=== PATIENT | female | born 1945 | race Caucasian/White ===

== ENCOUNTER → 2020-07-26 10:22 | Outpatient (CLI) | payer MEDICARE, OTHER, SELFPAY ==
--- NOTE | ~2020-07-26 | MM_ITS ---
EXAMINATION: MM screening [facility] w kyacee HISTORY: Screening mammogram TECHNIQUE: Craniocaudal and mediolateral oblique 3-D tomosynthesis images were obtained and synthetic 2-D images were generated. CAD analysis was submitted and interpreted. COMPARISON: 10/28/2018, 01/08/2017, 11/09/2014 bilateral digital screening mammogram examinations BREAST PARENCHYMAL COMPOSITION: There are scattered areas of fibroglandular density. FINDINGS: Stable mild fibroglandular asymmetry. There is no evidence of suspicious mass, calcificatio n, or architectural distortion to suggest malignancy in either breast. There has been no suspicious i nterval change. IMPRESSION: 1. No mammographic evidence of malignancy. 2. Recommend routine screening mammography in one year. BI-RADS Category 2: Benign finding(s). Reviewed, dictated and finalized at location A.
== END ==
PROVIDERS: PCP Physician Assistant; Visit Provider Physician Assistant
DX: Z12.31 Encounter for screening mammogram for malignant neoplasm of breast (principal)
CPT/HCPCS: 77063; 77067

== ENCOUNTER → 2021-02-10 07:37 | Outpatient (CLI) | payer MEDICARE, OTHER, SELFPAY ==
--- NOTE | ~2021-02-10 | US_ITS ---
EXAMINATION: US abdomen complete DATE: 02/10/2021 08:24 INDICATION: Nausea and vomiting TECHNIQUE: Multiple grayscale and Doppler ultrasound images of the abdomen were obtained. COMPARISON: None available FINDINGS: The head and body of the pancreas are normal. The pancreatic tail is obscured by bowel gas. The liver demonstrates increased echogenicity, heterogenous echotexture, and decreased through trans mission. No surface nodularity. Normal hepatopetal flow in the main portal vein. The gallbladder is s urgically absent. The common bile duct measures 8 mm, consistent with post cholecystectomy state. The visualized portions of the aorta and inferior vena cava are normal. The right kidney measures 12.1 x 4.0 x 6.2 cm. The left kidney measures 11.3 x 4.3 x 7.0 cm. The kidn eys demonstrate normal parenchymal echogenicity. There is no hydronephrosis. The spleen is normal in appearance and measures 14.1 cm. IMPRESSION: 1. No sonographic correlate for the patient's symptoms. Reviewed, dictated and finalized at location A.
== END ==
PROVIDERS: PCP Physician Assistant; Visit Provider Physician Assistant
DX: R11.10 Vomiting, unspecified (principal); R53.83 Other fatigue; R10.11 Right upper quadrant pain
CPT/HCPCS: 76700

== ENCOUNTER → 2021-08-01 10:26 | Outpatient (CLI) | payer MEDICARE, OTHER, SELFPAY ==
--- NOTE | ~2021-08-01 | MM_ITS ---
EXAMINATION: MM screening [facility] BI w kaycee HISTORY: Screening TECHNIQUE: Craniocaudal and mediolateral oblique 3-D tomosynthesis images were obtained and synthetic 2-D images were generated. CAD analysis was submitted and interpreted. COMPARISON: Comparison to multiple prior studies sequentially, with oldest reviewed study dated 04/28. BREAST PARENCHYMAL COMPOSITION: Breast composed of scattered areas of fibroglandular density. FINDINGS: There is no evidence of suspicious mass, calcification, or architectural distortion to sugg est malignancy in either breast. There has been no suspicious interval change. IMPRESSION: 1. No mammographic evidence of malignancy. 2. Recommend routine screening mammography in one year. BI-RADS Category 1: Negative Reviewed, dictated and finalized at location A.
== END ==
PROVIDERS: PCP Physician Assistant; Visit Provider Physician Assistant
DX: Z12.31 Encounter for screening mammogram for malignant neoplasm of breast (principal)
CPT/HCPCS: 77063; 77067

== ENCOUNTER → 2022-08-07 10:10 | Outpatient (CLI) | payer MEDICARE, OTHER, SELFPAY ==
--- NOTE | ~2022-08-07 | MM_ITS ---
EXAMINATION: MM screening [facility] BI w kaycee HISTORY: Screening mammogram TECHNIQUE: Craniocaudal and mediolateral oblique 3-D tomosynthesis images were obtained and synthetic 2-D images were generated. CAD analysis was submitted and interpreted. COMPARISON: 08/01/2021, 07/26/2020, 10/28/2018 BREAST PARENCHYMAL COMPOSITION: There are scattered areas of fibroglandular density. FINDINGS: No suspicious mass, calcification, or architectural distortion are identified in either minnie ast to suggest malignancy. There has been no suspicious interval change. IMPRESSION: 1. No mammographic evidence of malignancy. 2. Recommend routine screening mammography in one year. BI-RADS Category 1: Negative Reviewed, dictated and finalized at location A.
--- NOTE | ~2022-08-07 | DEXA_ITS ---
Bone Density Report Name: [facility] Age: 77 Sex: Female Ethnicity: White Date of : 1945 Indication: postmenopausal; screening for osteoporosis; parental hip fracture; height loss; hysterectomy; Referring Provider: QUENTIN, ARABELLA Study: Bone densitometry was performed. Exam Date: August 07, 2022 Accession number: [id number] Bone Density: Region BMD T-score Z-score Classification AP Spine (L3, L4) 1.116 0.1 2.7 Normal Femoral Neck (Left) 0.796 -0.5 1.6 Normal Total Hip (Left) 0.946 0.0 1.8 Normal Femoral Neck (Right) 0.752 -0.9 1.2 Normal Total Hip (Right) 0.930 -0.1 1.7 Normal Total Hip Mean 0.938 -0.1 1.8 Normal World Health Organization criteria for BMD impression classify patients as: Normal (T-score at or above -1.0), Osteopenia (T-score between -1.0 and -2.5), or Osteoporosis (T-score at or below -2.5). 10-year Fracture Risk: FRAX not reported because: All T-scores for Spine Total, Hip Total, Femoral Neck at or above -1.0 Previous Exams: Region Exam Age BMD T-score BMD Change BMD Change Date g/cm2 vs Baseline vs Previous AP Spine(L3, L4) 08/07/2022 77 1.116 0.1 0.068* 0.005 10/28/2018 73 1.111 0.1 0.063* 0.053* 04/25/2012 67 1.058 -0.4 0.010 -0.048* 02/07/2010 64 1.106 0.0 0.058* 0.058* 09/23/2007 62 1.048 -0.5 Total Hip(Left) 08/07/2022 77 0.946 0.0 -0.123* -0.012 10/28/2018 73 0.958 0.1 -0.111* 0.007 04/25/2012 67 0.951 0.1 -0.118* -0.155* 02/07/2010 64 1.105 1.3 0.036* 0.036* 09/23/2007 62 1.069 1.0 Total Hip(Right) 08/07/2022 77 0.930 -0.1 -0.176* -0.008 10/28/2018 73 0.938 0.0 -0.169* 0.001 04/25/2012 67 0.937 0.0 -0.170* -0.111* 02/07/2010 64 1.048 0.9 -0.059* -0.059* 09/23/2007 62 1.107 1.4 *Denotes significance at 95% confidence level, LSC for AP Spine = 0.022 g/cm2, LSC for Total Hip = 0.027 g/cm2 Clinical Information Provided by Patient: Parent has had a hip fracture Has used the following medications: Vitamin D Has the following medical conditions: Hysterectomy Patient maximum height was 65 Menopause Age: 32 Does not regularly consume dairy products Drinks caffeinated beverages Onset of menses at age 14 Number of children 3
== END ==
PROVIDERS: PCP Physician Assistant; Visit Provider Physician Assistant
DX: Z12.31 Encounter for screening mammogram for malignant neoplasm of breast (principal); Z78.0 Asymptomatic menopausal state
CPT/HCPCS: 77063; 77067; 77080

== ENCOUNTER → 2023-10-18 08:42 | Outpatient (CLI) | payer MEDICARE, SELFPAY ==
--- NOTE | ~2023-10-18 | MM_ITS ---
EXAMINATION: MM screening [facility] w kaycee HISTORY: Screening mammogram TECHNIQUE: Craniocaudal and mediolateral oblique 3-D tomosynthesis images were obtained and synthetic 2-D images were generated. CAD analysis was submitted and interpreted. COMPARISON: 08/07/2022, 08/01/2021, 07/26/2020 bilateral screening mammogram examinations BREAST PARENCHYMAL COMPOSITION: There are scattered areas of fibroglandular density. FINDINGS: There is no evidence of suspicious mass, calcification, or architectural distortion to sugg est malignancy in either breast. There has been no suspicious interval change. IMPRESSION: 1. No mammographic evidence of malignancy. 2. Recommend routine screening mammography in one year. BI-RADS Category 1: Negative Reviewed, dictated and finalized at location A. CAL COLLECTIONS
== END ==
PROVIDERS: PCP Physician Assistant; Visit Provider Physician Assistant
DX: Z12.31 Encounter for screening mammogram for malignant neoplasm of breast (principal)
CPT/HCPCS: 77063; 77067

== ENCOUNTER 2024-10-20 10:28 | Outpatient (CLI) | payer MEDICARE, SELFPAY ==
--- NOTE | ~2024-10-20 | MM_ITS ---
EXAMINATION: MM screening [facility] w kaycee HISTORY: Screening TECHNIQUE: Craniocaudal and mediolateral oblique 3-D tomosynthesis images were obtained and synthetic 2-D images were generated. CAD analysis was submitted and interpreted. COMPARISON: Comparison to multiple prior studies sequentially, with oldest reviewed study dated 06/2017. BREAST PARENCHYMAL COMPOSITION: Not dense: There are scattered areas of fibroglandular density. FINDINGS: There is no evidence of suspicious mass, calcification, or architectural distortion to sugg est malignancy in either breast. There has been no suspicious interval change. IMPRESSION: 1. No mammographic evidence of malignancy. 2. Recommend routine screening mammography in one year. BI-RADS Category 1: Negative Reviewed, dictated and finalized at location B. SHAMPOOER
== END 2024-10-20 10:29 | disposition home or self-care (01) ==
LOC: MICIMG 10:30
PROVIDERS: PCP Physician Assistant; Visit Provider Physician Assistant
DX: Z12.31 Encounter for screening mammogram for malignant neoplasm of breast (principal)
CPT/HCPCS: 77063; 77067

== ENCOUNTER 2024-11-16 01:23 | Day surgery (SDC) | payer MEDICARE, SELFPAY ==
[2024-10-28 08:47] VITALS: BMI 38.5
[2024-11-16 06:55] VITALS: BP 221/97; PULSE 92; RESP 20; TEMP 36.2; O2SAT 99; BMI 38.7
[2024-11-16 07:05] VITALS: BP 185/86
[2024-11-16] MEDS: LACTATED RINGERS 1,000 ML 150 ML IV CONT (07:07)
--- NOTE | 2024-11-16 07:15 | WPDANESEPPF ---
Anes - Initial Pre Proc Eval Procedure: Operation Date: 11/16/24 08:00 Proposed Procedures p Colonoscopy - Chung Delgado MD Date/Time: 11/16/24 07:15 Surgeon: Chung Delgado MD Pre Op Diagnosis: hx of colon polyps Patient Data Age: 79 Gender: F Height: 1.65 m Weight: 105.5 kg Last Vital Signs Temp 36.2 C L 11/16/24 06:55 Pulse 92 11/16/24 06:55 Resp 20 11/16/24 06:55 BP 221/97 H 11/16/24 06:55 Pulse Ox 99 11/16/24 06:55 O2 Del Method Room Air 11/16/24 06:55 Allergies Allergy/AdvReac Type Severity Reaction Status Date / Time No Known Allergies Allergy Verified 11/16/24 06:53 Home Medications ?Medication ?Instructions ?Recorded ?Confirmed ?Type amlodipine 10 mg tablet 10 mg PO DAILY 10/28/24 11/16/24 History cholecalciferol (vitamin D3) 50 2,000 unit PO DAILY 10/28/24 11/16/24 History mcg (2,000 unit) capsule dapagliflozin propanediol 10 mg 10 mg PO DAILY 10/28/24 11/16/24 History tablet (Farxiga) lisinopril 2.5 mg tablet 2.5 mg PO DAILY 10/28/24 11/16/24 History mecobalamin (vitamin B12) 1,000 1,000 mcg PO DAILY 10/28/24 11/16/24 History mcg chewable tablet [id number]-epa-fish oil 120 1 cap PO DAILY 10/28/24 11/16/24 History mg-180 mg-60 mg-1,200 mg capsule, DR (Fish Oil) semaglutide 14 mg tablet (Rybelsus) 14 mg PO DAILY 10/28/24 11/16/24 History Patient hx anesthesia problems: none Family hx anesthesia problems: none Results Review: All pre-operative results and documents have been reviewed as part of the pre-operative evaluation. [facility] Past Medical History Medical History (Updated 11/16/24 @ 07:17 by Bob Morel MD) Diabetes Obesity Hyperlipidemia HTN (hypertension) Surgical History Surgical History (Updated 11/16/24 @ 07:17 by Bob Morel MD) History of cholecystectomy History of section Social History Social History Smoking status: Never smoker Alcohol intake: never Substance use: never Substance use type: does not use Living arrangements: alone Spiritual care concerns: No Anes - Eval Final PreProcedure Day of Procedure 11/16/24 07:15 Patient weight: obese Heart: regular rate and rhythm Lungs: clear to auscultation Airway: Mallampati scale class II Neurological: alert and oriented Last oral intake: >/= 8 hours ASA classification: III Emergent: no Anesthetic plan: proceed Anesthesia type and monitoring: general GIVS and standard monitoring Results Review: All pre-operative results and documents have been reviewed as part of the pre-operative evaluation. Informed Consent: The patient's anesthetic plan and its attendant risks and benefits were discussed with the patient/family/POA. Questions were solicited and answers provided to the satisfaction of the patient/family/POA.
[2024-11-16 07:37] LABS: Glucose Point of Care 164 mg/dl (65-105)
[2024-11-16 07:46] VITALS: BP 174/87
--- NOTE | 2024-11-16 07:54 | PM.HPGS ---
History of Present Illness History of Present Illness Consent: Risks, benefits, and alternatives have been discussed and questions answered. Patient agrees to proceed with procedure. Chief complaint: hx of colon polyps Narrative: Mandy Oconnor is a 79 year old female with h/o colon cancer (about 25 years ago and was arising from a polyp with negative margin), since has been getting colonoscopies every 5 years Review of Systems Review of Systems: All systems reviewed & are unremarkable except as noted in HPI and below PMFSH Past Medical History Medical History (Updated 11/16/24 @ 07:57 by Chung Delgado MD) History of colon cancer Diabetes Obesity Hyperlipidemia HTN (hypertension) Surgical History Surgical History (Updated 11/16/24 @ 07:17 by Bob Morel MD) History of cholecystectomy History of section Social History Social History Smoking status: Never smoker Alcohol intake: never Substance use: never Substance use type: does not use Living arrangements: alone Spiritual care concerns: No Meds Home Medications and Allergies Home Medications ?Medication ?Instructions ?Recorded ?Confirmed ?Type amlodipine 10 mg tablet 10 mg PO DAILY 10/28/24 11/16/24 History cholecalciferol (vitamin D3) 50 2,000 unit PO DAILY 10/28/24 11/16/24 History mcg (2,000 unit) capsule dapagliflozin propanediol 10 mg 10 mg PO DAILY 10/28/24 11/16/24 History tablet (Farxiga) lisinopril 2.5 mg tablet 2.5 mg PO DAILY 10/28/24 11/16/24 History mecobalamin (vitamin B12) 1,000 1,000 mcg PO DAILY 10/28/24 11/16/24 History mcg chewable tablet [id number]-epa-fish oil 120 1 cap PO DAILY 10/28/24 11/16/24 History mg-180 mg-60 mg-1,200 mg capsule, DR (Fish Oil) semaglutide 14 mg tablet (Rybelsus) 14 mg PO DAILY 10/28/24 11/16/24 History Allergies Allergy/AdvReac Type Severity Reaction Status Date / Time No Known Allergies Allergy Verified 11/16/24 06:53 Vital Signs Vital Signs - 24 hr 11/16/24 06:55 11/16/24 07:05 11/16/24 07:46 Temperature 97.1 F L Pulse Rate 92 Respiratory Rate 20 Blood Pressure 221/97 H 185/86 H 174/87 H Pulse Oximetry 99 Oxygen Delivery Room Air Exam Const: General: comfortable and no acute distress HENMT: Face/Nose/Sinus: Normal nares present Eyes: General: appearance normal, both eyes and all related structures Neck: Neck: no JVD Resp: Auscultation: clear to auscultation bilaterally Cardio: Rate: regular rate Rhythm: regular rhythm GI: Inspection: non-distended GI Palp: Yes Soft to palpation Skin: General skin exam: normal color Neuro: General: gait normal Speech: normal speech Extrem: General: normal to inspection Psych: Mental Status: mental status grossly normal Assessment and Plan Assessment and plan (1) History of colon cancer: Code(s): Z85.038 - Personal history of other malignant neoplasm of large intestine Status: Acute Assessment and Plan: colonoscopy
[2024-11-16 08:29] VITALS: BP 113/83; PULSE 70; RESP 20; O2SAT 97
[2024-11-16 08:39] VITALS: BP 151/79; PULSE 72; RESP 18; O2SAT 99
[2024-11-16 08:49] VITALS: BP 116/60; PULSE 68; RESP 18; O2SAT 98
--- OUTSIDE RECORDS SUMMARY | 2024-11-23 05:12 | XMS_ITS | Encounter Summary ---
Author Organization [facility] Address [address] [place] [address]. [place] [address] [place] [address] Care Team Providers Care Marketing Communications Coordinator Name Role Phone Unavailable Primary Care Provider Unavailabl e Encounter Details Date Type Department Care Team (Late st Contact Info) Description 02/19/2002 Abstract [facility] CONVERSION [address] [place] [address] [place] [address] [facility] [address] [place] [address] Social History Tobacco Use Types Packs/Day Years Used Date Smoking Tobacco: Never Assessed Comments Unknown Sex and Gender Information Value Date Recorded Sex Assigned at Not on file Legal Sex Female 7:33 PM CDT Gender Identity Not on file Sexual Orientation Not on file documented as of this encounter Plan of Treatment Not on file documented as of this encounter Visit Diagnoses Not on filedocumented in this encounter
--- OUTSIDE RECORDS SUMMARY | 2024-11-23 05:12 | XMS_ITS | Encounter Summary ---
Author Organization [facility] Address [address] [place] [address]. [place] [address] [place] [address] Care Team Providers Care Well Site Drilling Engineer Name Role Phone Marah Jonas Primary Care Provider Reason for Referral * Imaging (Emergency) - Closed Specialty Diagnoses / Procedures Referred By Contnestor t Referred To Contact RADIOLOGY Procedures CT HEAD WO CON Angie Esparza MD [address] [address] Phone: tel: fax: Referral ID Status Reason Start Date Expiration Date Visits Re quested Visits Authorized [id number] Closed 11/12/2019 12/13/2020 1 1 ING LINE WORKER Reason for Visit * Reason Comments Dizziness Encounter Details Date Type Department Care Team (Late st Contact Info) Description 11/12/2019 4:11 PM COATING LINE WORKER - 11/12/2019 8:50 PM COATING LINE WORKER Emergency [facility] Emergency Room [address] [place] [address] Angie Esparza MD [address] [address] Dizziness Discharge Disposition: Home or Self Care (Routine Discharge) Social History Tobacco Use Types Packs/Day Years Used Date Smoking Tobacco: Never Smokeless Tobacco: Never Alcohol Use Standard Drinks/Week Comments No 0 (1 standard drink = 0.6 oz pur e alcohol) AUDIT-C Answer Date Recorded Frequency of Alcohol Consumption Never 11/12/2019 Average Number of Drinks Not on file 020 Frequency of Binge Drinking Not on file 11/03 Comments No Sex and Gender Information Value Date Recorded Sex Assigned at Not on file Legal Sex Female 7:33 PM CDT Gender Identity Not on file Sexual Orientation Not on file documented as of this encounter Last Filed Vital Signs Vital Sign Reading Time Taken Comments Blood Pressure 186/99 11/12/2019 8:00 PM COATING LINE WORKER Pulse 90 11/12/2019 7:00 PM COATING LINE WORKER Temperature 36.6 ??C (97.8 ??F) 11/12/2019 4:22 PM CS T Respiratory Rate 14 11/12/2019 7:00 PM COATING LINE WORKER Oxygen Saturation 95% 11/12/2019 7:00 PM COATING LINE WORKER Inhaled Oxygen Concentration - - Weight 124.1 kg (273 lb 8 oz) 11/12/2019 4:22 PM COATING LINE WORKER Height 165.1 cm (5' 5 ) 11/12/2019 4:22 PM COATING LINE WORKER Body Mass Index 45.51 11/12/2019 4:22 PM COATING LINE WORKER documented in this encounter Discharge Instructions * Discharge Instructions* Angie Esparza MD - 11/12/2019 7:[address] scan, blood work all normal today. Given exam and response, I think symptoms were from inner earproblem called vertigo. Sometimes pressure, or infection can trigger. Plan to treat this as appeared you had right ear effusion. Further, in ED your blood pressure has been elevated. I suspect that symptoms/stress causing this but will start on blood pressure medication. Please monitor at home if possible, taking once daily atsame time. Follow up closely with primary doctor. If symptoms return and not managed easily with Meclizine, particularly severe dizziness, repeated vomiting, inability to walk/stand, return to ED immediately. Further return if new symptoms, severe headache, confusion, fever, or new weakness, numbness, difficulty speaking or Blood pressure persistently > 225 (systolic or top number). No drivingfor next 48 hours. ING LINE WORKER ING LINE WORKER * Attachments The following attachments cannot be sent through Care Everywhere. * Vertigo (a Type of Dizziness) Discharge Instructions (Equatorial Guinean) * Labyrinthitis (Equatorial Guinean) documented in this encounter Medications at Time of Discharge amlodipine 10 MG tablet Take 1 tablet (10 mg total) by mouth daily. 30 tablet 11/12/2019 ondansetron 4 MG disintegrating tablet Take 1 tablet (4 mg total) by mouth every 8 (eight) hours as needed for Nausea. 12 tablet 11/12/2019 amoxicillin 500 MG tablet Take 1 tablet (500 mg total) by mouth 3 (three) times daily for 7 days. 21 tablet 11/12/2019 0 fluticasone propionate (FLONASE) 50 MCG/ACT nasal spray 1 spray by Nasal route daily for 7 days. 9.9 mL 11/12/2019 0 meclizine 25 MG tablet Take 1 tablet (25 mg total) by mouth 3 (three) times daily as needed for Dizziness. 20 tablet 11/12/2019 0 documented as of this encounter ED Notes * Carl Stone RN - 11/12/2019 7:30 PM CST Patient was able to sit, stand and walk without difficulty. Pt stated still feels a little weak from laying in the bed. Pt denies dizziness or nausea. ING LINE WORKER * Angie Esparza MD - 11/12/2019 5:17 PM CST Chief Complaint Chief Complaint Patient presents with ??? Dizziness History of Present Illness 74 yo F, presents w/ dizziness and vomiting. Started today while knitting. Denies syncope/near syncope. Denies pain. Denies any speech issues, denies any weakness, or numbness. Pt states everytime she moved her head/sat up or tried to walk she would get sick. No prior hx. +congestion noted recently, no fevers. No ear pain. Medical History ALLERGIES: No Known Allergies MEDICATIONS: Prior to Admission medications Not on File PAST MEDICAL HISTORY: History reviewed. No pertinent past medical history. PAST SURGICAL HISTORY: Past Surgical History: Procedure Laterality Date ??? CHOLECYSTECTOMY FAMILY HISTORY: No family history on file. SOCIAL HISTORY: Social History Tobacco Use ??? Smoking status: Never Smoker ??? Smokeless tobacco: Never Used Substance Use Topics ??? Alcohol use: No Frequency: Never ??? Drug use: No Review of Systems Review of Systems Constitutional: Negative for fever. HENT: Positive for congestion. Eyes: Negative for pain. Respiratory: Negative for shortness of breath. Cardiovascular: Negative for chest pain. Gastrointestinal: Negative for abdominal pain. Genitourinary: Negative for dysuria. Musculoskeletal: Negative for back pain and myalgias. Skin: Negative for rash. Neurological: Negative for headaches. Psychiatric/Behavioral: The patient is not nervous/anxious. Physical Exam Filed Vitals: 11/12/19 1622 BP: (!) 197/67 Pulse: 93 Resp: 20 Temp: 97.8 ??F (36.6 ??C) TempSrc: Tympanic SpO2: 96% Weight: 124.1 kg (273 lb 8 oz) Height: 5' 5 (1.651 m) Physical Exam Constitutional: She is oriented to person, place, and time. She appears well- developed and well-nourished. No distress. HENT: Head: Normocephalic and atraumatic. Mouth/Throat: Oropharynx is clear and moist. Right TM effusion, no erythema. Left TM wnl. Eyes: Conjunctivae and EOM are normal. Pupils are equal, round, and reactive to light. Neck: Normal range of motion. Cardiovascular: Normal rate, regular rhythm, normal heart sounds and intact distal pulses. Pulmonary/Chest: Effort normal and breath sounds normal. No respiratory distress. Abdominal: Soft. Bowel sounds are normal. She exhibits no distension. There is no tenderness. Thereis no rebound. Musculoskeletal: Normal range of motion. She exhibits no edema or deformity. Neurological: She is alert and oriented to person, place, and time. No cranial nerve deficit. Gait wnl, finger to nose wnl. Strength 5/5 in upper/lower, sensation intact throughout to light touch. Romberg wnl. Skin: Skin is warm and dry. No rash noted. Psychiatric: She has a normal mood and affect. Vitals reviewed. Diagnostic Studies / Procedures ELECTROCARDIOGRAMS: Results for orders placed or performed during the hospital encounter of 11/12/19 ECG 12 lead Narrative [facility] Test Date: 2019-11-12 Pat Name: MC WATERS Department: Room: EXAM 505 Gender: Female Internal Medicine Nurse: : 1945 Requested By: ANGIE ESPARZA Order Number: [id number] Reading MD: Measurements Intervals Strawn Rate: 90 P: 30 VT: 212 QRS: 23 QRSD: 158 T: -14 QT: 406 QTc: 498 Interpretive Statements SINUS RHYTHM WITH FIRST DEGREE AV BLOCK RIGHT BUNDLE BRANCH BLOCK [120+ ms QRS DURATION, UPRIGHT V1, 40+ ms S IN I/aVL/V4/V5/V6] No previous ECG available for comparison Interpreted by me: NSR, rate 90, RBBB, 1st deg av block, no st elevation/depression, otherwise normal intervals. LABORATORY STUDIES: No results found for this visit on 11/12/19. IMAGING STUDIES CT HEAD WO CON (Results Pending) ED Course / Medical Decision Making Above very normal exam s/p meclizine and zofran given upon patient being roomed. No focal neuro deficits and symptoms most suggestive of peripheral vertigo w/ transient dizziness/vomiting. Labs , ct , EKG otherwise benign and cafeteria monitor wnl. Discussed plan for meclizine, hydration. Discussed driving precautions. Discussed need for f/u w/ pcp. Discussed expected course for peripheral vertigo,with possible sinusitis or ear infection etiology , plan treatment and flonase for decongestants. Discussed if persistent symptoms, may need referrals or further testing. Further pt noted to have BP elevated here. I do not believe patient blood pressure is etiology of symptoms as she was asymptomatic after medications and normal exam but BP remained elevated. Will start amlodipine, patient has plans to get cuff at home and take to monitor. Counseled if persisently elevated > 225 systolic Or symptoms return / worsening and are persistent or any severe headache, loss of vision, chest pain or weakness/numbness, or speech issues to return immediately to ED. Further counseled to not take amlodipine if BP < 120 systolic. Pt And family/friends at bedside all Expressed understanding and agreement to d/c, f/u and return plans. Clinical Impression Vertigo (Primary) Disposition: Discharge Angie Esparza MD 11/13/19 191 ING LINE WORKER * Sheila Mcgee RN - 11/12/2019 4:24 PM CST Sudden onset of dizziness today. Feels like can't keep balance. Resolves when laying down with eyesshut. Vomiting d/t dizziness. Denies abd pain, chest pain, or diarrhea. No recent illness. ING LINE WORKER documented in this encounter Plan of Treatment Not on file documented as of this encounter Procedures Procedure Name Priority Date/Time Associated Diagnosis Comments CT HEAD WO CON STAT 11/12/2019 5:46 PM COATING LINE WORKER COMPREHENSIVE METABOLIC PANEL STAT 11/12/2019 5:22 PM COATING LINE WORKER CBC W/DIFF AUTOMATED STAT 11/12/2019 5:22 PM COATING LINE WORKER TROPONIN, QUANT STAT 11/12/2019 5:22 PM COATING LINE WORKER ECG 12-LEAD STAT 11/12/2019 5:15 PM COATING LINE WORKER documented in this encounter Results * CT HEAD WO CON (11/12/2019 5:46 PM COATING LINE WORKER) Anatomical Region Laterality Modality Head Computed Tomogra phy 11/12/2019 6:14 PM COATING LINE WORKER Impressions 11/12/2019 6:16 PM COATING LINE WORKER IMPRESSION: 1. No acute intracranial process noted Interpreted By: Sonny Coleman, 11/12/2019 6:14 PM Narrative 11/12/2019 6:16 PM COATING LINE WORKER STUDY: CT HEAD WO CON. ??CT dose reduction technique utilized. ? DATE: 11/12/2019 5:28 PM COMPARISON: No prior studies available HISTORY: Sudden onset dizziness FINDINGS: Mild cortical atrophy compatible with patient's age. Ventricles are of normal size and duration. No evidence of acute bleed or acute infarct. No extra-axial collections noted. Visualized paranasal sinuses are clear. Mastoid air cells and middle ear cavities are clear. Calvarium is intact. Procedure Note Sonny Coleman, DO - 11/12/2019 STUDY: CT HEAD WO CON. CT dose reduction technique utilized. DATE: 11/12/2019 5:28 PM COMPARISON: No prior studies available HISTORY: Sudden onset dizziness FINDINGS: Mild cortical atrophy compatible with patient's age. Ventricles are of normal size and duration. No evidence of acute bleed or acute infarct.No extra-axial collections noted. Visualized paranasal sinuses are clear. Mastoid air cells and middle ear cavities are clear. Calvarium is intact. IMPRESSION: 1. No acute intracranial process noted Interpreted By: Sonny Coleman, 11/12/2019 6:14 PM us Angie Esparza MD CT Final Resu lt * TROPONIN, QUANT (11/12/2019 5:22 PM COATING LINE WORKER) TROPONIN I <0.017 0.000 - 0.056 ng/mL. 11/12/2019 5:54 PM COATING LINE WORKER [facility] Comment: NORMAL: LESS THAN OR EQUAL TO 0.056 NG/ML INDETERMINATE ZONE: 0.056 TO 0.599 NG/ML CONDITIONS RESULTING IN MYOCARDIAL CELL DAMAGE CAN POTENTIALLY INCREASE LEVELS ABOVE THE EXPECTED RANGE. HIGH DOSES OF BIOTIN MAY INTERFERE WITH THIS TEST RESULT. CORRELATION TO CLINICAL HISTORY AND PRESENTATION RECOMMENDED. 11/12/2019 5:22 PM COATING LINE WORKER us Angie Esparza MD LABORATORY Final Resu lt [facility] [address] [place] [id number], [place] [phone] * (ABNORMAL) CBC W/DIFF AUTOMATED (11/12/2019 5:22 PM [facility]) WBC 9.2 4.4 - 11.0 x10'3/uL 11/12/2019 5:32 PM [facility] RBC 4.87 4.50 - 5.10 x10'6/uL 11/12/2019 5:32 PM [facility] HGB 14.2 12.3 - 15.3 G/DL 11/12/2019 5:32 PM [facility] HCT 43.3 35.9 - 44.6 % 11/12/2019 5:32 PM [facility] MCV 88.9 80.0 - 96.0 FL 11/12/2019 5:32 PM [facility] MCH 29.2 25.3 - 30.9 PG 11/12/2019 5:32 PM [facility] MCHC 32.8 31.0 - 34.1 G/DL 11/12/2019 5:32 PM [facility] RDW 12.6 12.4 - 15.1 % 11/12/2019 5:32 PM [facility] PLT 224 151 - 353 x10'3/uL 11/12/2019 5:32 PM [facility] MPV 9.1(L) 9.6 - 12.0 FL 11/12/2019 5:32 PM [facility] RBC MORPHOLOGY NORMAL 11/12/2019 5:32 PM [facility] PLT MORPH. NORMAL 11/12/2019 5:32 PM [facility] WBC MORPHOLOGY NORMAL 11/12/2019 5:32 PM [facility] LYMPHOCYTES % 10.5(L) 15.8 - 45.0 % 11/12/2019 5:32 PM [facility] NEUTROPHILS % 84.2(H) 42.1 - 71.9 % 11/12/2019 5:32 PM [facility] MONOCYTES % 4.1(L) 5.7 - 12.5 % 11/12/2019 5:32 PM [facility] EOSINOPHILS 0.2 0.0 - 5.6 % 11/12/2019 5:32 PM [facility] BASOPHILS 0.3 0.0 - 1.3 % 11/12/2019 5:32 PM [facility] ABS. NEUTROPHILS TOTAL 7.73(H) 1.40 - 6.00 x10'3/uL 11/12/2019 5:32 PM [facility] IMMATURE GRANS % 0.7(H) 0.0 - 0.5 % 11/12/2019 5:32 PM [facility] ABS. LYMPHOCYTES 0.96 0.80 - 4.70 x10'3/uL 11/12/2019 5:32 PM [facility] 11/12/2019 5:22 PM COATING LINE WORKER Angie Esparza MD LABORATORY Final Resu lt [facility] [address] [place] [address], * (ABNORMAL) COMPREHENSIVE METABOLIC PANEL (11/12/2019 5:22 PM COATING LINE WORKER) GLUCOSE 201(H) 70 - 99 MG/DL 11/12/2019 5:44 PM [facility] BUN 15 7 - 18 MG/DL 11/12/2019 5:44 PM [facility] CREATININE S/P/B 0.72 0.55 - 1.02 MG/DL 11/12/2019 5:44 PM [facility] SODIUM S/P/B 136 136 - 145 MMOL/L 11/12/2019 5:44 PM [facility] POTASSIUM S/P/B 3.9 3.5 - 5.1 MMOL/L 11/12/2019 5:44 PM [facility] CHLORIDE S/P/B 100 100 - 108 MMOL/L 11/12/2019 5:44 PM [facility] CO2 25.8 21 - 32 MMOL/L 11/12/2019 5:44 PM [facility] CALCIUM S/P/B 8.7 8.5 - 10.1 MG/DL 11/12/2019 5:44 PM [facility] BILIRUBIN TOTAL S/P/B 0.5 0.2 - 1.2 MG/DL 11/12/2019 5:44 PM [facility] TOTAL PROTEIN S/P/B 7.3 6.4 - 8.2 G/DL 11/12/2019 5:44 PM [facility] ALBUMIN S/P/B 3.7 3.4 - 5.0 G/DL 11/12/2019 5:44 PM [facility] AST 38(H) 15 - 37 U/L 11/12/2019 5:44 PM [facility] ALT 61(H) 14 - 55 U/L 11/12/2019 5:44 PM [facility] ALKALINE PHOSPHATASE S/P/B 98 50 - 136 U/L 11/12/2019 5:44 PM [facility] ANION GAP 10.2 5 - 15 MMOL/L 11/12/2019 5:44 PM [facility] BUN CREATININE RATIO 20.8 6 - 26 11/12/2019 5:44 PM [facility] A/G RATIO 1.0 1.0 - 2.0 RATIO 11/12/2019 5:44 PM COATING LINE WORKER [facility] EGFR NON-AFR. AMER. 84(L) >90 ML/MIN/1.7 3 M2 11/12/2019 5:44 PM COATING LINE WORKER [facility] EGFR AFR. AMER. >90 >90 ML/MIN/1.7 3 M2 11/12/2019 5:44 PM COATING LINE WORKER [facility] Comment: NOTE: eGFR is not calculated for patients <18 years of age. This is an estimated GFR (CKD EPI) and should not be used for calculating drug doses. 11/12/2019 5:22 PM COATING LINE WORKER us Angie Esparza MD LABORATORY Final Resu lt Performing Organization Address [facility] Co de Phone Number [facility] [address] [place] [address], * ECG 12 lead (11/12/2019 5:15 PM COATING LINE WORKER) 11/12/2019 5:15 PM COATING LINE WORKER Narrative [facility] RAD - 11/13/2019 8:24 AM COATING LINE WORKER [facility] ? Test Date: ?2019-11-12 Pat Name: ? MC WATERS ?Department: ? Room: ? EXAM 505 Gender: ? Female ? Internal Medicine Nurse: ?? : ?1945 ? Requested By: ANGIE ESPARZA Order Number: [id number] ? Reading MD: ?? Steven Reis ? Measurements Intervals ?Strawn ? Rate: ? 90 ? P: ?30 VT: ? 212 ?QRS: ?23 QRSD: ? 158 ?T: ?-14 QT: ? 406 ? QTc: ?498 ? Interpretive Statements SINUS RHYTHM WITH FIRST DEGREE AV BLOCK RIGHT BUNDLE BRANCH BLOCK ??[120+ ms QRS DURATION, UPRIGHT V1, 40+ ms S IN I/aVL/V4/V5/V6] No previous ECG available for comparison ING LINE WORKER Procedure Note Steven Reis MD - 11/13/2019 [facility] Test Date: 2019-11-12 Pat Name: MC WATERS Department: Room: EXAM 505 Gender: Female Internal Medicine Nurse: : 1945 Requested By: ANGIE ESPARZA Order Number: [id number] Reading MD: Steven Reis Measurements Intervals Strawn Rate: 90 P: 30 VT: 212 QRS: 23 QRSD: 158 T: -14 QT: 406 QTc: 498 Interpretive Statements SINUS RHYTHM WITH FIRST DEGREE AV BLOCK RIGHT BUNDLE BRANCH BLOCK [120+ ms QRS DURATION, UPRIGHT V1, 40+ ms S IN I/aVL/V4/V5/V6] No previous ECG available for comparison ING LINE WORKER us Angie Esparza MD ECG ORDERABLES Final Resu lt [facility] ([facility] RAD documented in this encounter Visit Diagnoses Diagnosis Vertigo- Primary Dizziness and giddiness documented in this encounter Administered Medications Inactive Administered Medications - up to 3 most recent administrations Medication Order MAR Action Action Date Dose Rate Site amlodipine (NORVASC) tablet 10 mg 10 mg, Oral, Once, 1 dose, On Fri11/12/19 at 2000 Given 11/12/2019 8:09 PM COATING LINE WORKER 10 mg meclizine (ANTIVERT) tablet 25 mg 25 mg, Oral, Once, 1 dose, On Fri11/12/19 at 1645 Given 11/12/2019 5:19 PM COATING LINE WORKER 25 mg meclizine (ANTIVERT) tablet 25 mg 25 mg, Oral, Once, 1 dose, On Fri11/12/19 at 1945, For Home use Given 11/12/2019 8:08 PM COATING LINE WORKER 25 mg ondansetron (ZOFRAN) injection 4 mg 4 mg, Intravenous, Once, 1 dose, On Fri11/12/19 at 1700, IV push over 2-5 minutes. Given 11/12/2019 5:17 PM COATING LINE WORKER 4 mg sodium chloride 0.9% bolus infusion SOLN 1,000 mL 1,000 mL, Intravenous, Administer over 15 Minutes, Once, 1 dose, On Fri11/12/19 at 1700 New Bag 11/12/2019 5:17 PM COATING LINE WORKER 1,000 mLs documented in this encounter Active and Recently Administered Medications Times are shown in COATING LINE WORKER. Scheduled Medication Order 11/10/2019 11/11/2019 11/12/2019 amlodipine (NORVASC) tablet 10 mg (COMPLETED) 10 mg, Oral, Once, 1 dose, On Fri11/12/19 at 2000 2008 (Given - Provid er: Carl Stone RN) meclizine (ANTIVERT) tablet 25 mg (COMPLETED) 25 mg, Oral, Once, 1 dose, On Fri11/12/19 at 1645 1719 (Given - Provid er: Tuan Ta RN) meclizine (ANTIVERT) tablet 25 mg (COMPLETED) 25 mg, Oral, Once, 1 dose, On Fri11/12/19 at 1945, For Home use 2007 (Given - Provid er: Carl Stone RN) ondansetron (ZOFRAN) injection 4 mg (COMPLETED) 4 mg, Intravenous, Once, 1 dose, On Fri11/12/19 at 1700, IV push over 2-5 minutes. 1717 (Given - Provid er: Tuan Ta RN) sodium chloride 0.9% bolus infusion SOLN 1,000 mL (COMPLETED) 1,000 mL, Intravenous, Administer over 15 Minutes, Once, 1 dose, On Fri11/12/19 at 1700 1717 (New Bag - Prov ider: Tuan Ta RN)2004 (Infusion Stop Time - Provider: Carl Stone RN) documented in this encounter Care Teams Well Site Drilling Engineer Relationship Specialty Start Date End Date Marah Jonas PA [address] [place] [address] PCP - General PHYSICIAN WOOD CUT ENGRAVER 11/12/19 documented as of this encounter
--- OUTSIDE RECORDS SUMMARY | 2024-11-23 05:12 | XMS_ITS | Encounter Summary ---
Author Organization [facility] Address [facility] [place] [address] [place] [address] Care Team Providers Care Secondary History Teacher Name Role Phone Marah Jonas Primary Care Provider [phone] Encounter Details Date Type Department Care Team (Late st Contact Info) Description 02/17/2002 Abstract [facility] Services [address] [place], [place] [id number] Eddie Mann MD [address] [facility] [address] [place] [address] Social History Tobacco Use Types Packs/Day Years Used Date Smoking Tobacco: Never Assessed AUDIT-C Answer Date Recorded Frequency of Alcohol Consumption Never 11/12/2019 Average Number of Drinks Not on file 020 Frequency of Binge Drinking Not on file 11/03 Comments Unknown Sex and Gender Information Value Date Recorded Sex Assigned at Not on file Legal Sex Female 7:33 PM CDT Gender Identity Not on file Sexual Orientation Not on file documented as of this encounter Plan of Treatment Not on file documented as of this encounter Visit Diagnoses Not on filedocumented in this encounter Care Teams Secondary History Teacher Relationship Specialty Start Date End Date Marah Jonas PA [address] [place] [address] PCP - General PHYSICIAN PAY STATION COLLECTOR 11/12/19 documented as of this encounter
--- OUTSIDE RECORDS SUMMARY | 2024-11-23 05:12 | XMS_ITS | Encounter Summary ---
Author Organization [facility] Address [address] [place] [address]. [place] [address] [place] [address] Care Team Providers Care Predatory Game Hunter Name Role Phone Unavailable Primary Care Provider Unavailabl e Encounter Details Date Type Department Care Team (Late st Contact Info) Description 02/18/2002 Abstract [facility] CONVERSION [address] [place] [address] , Generic Conversion, Social History Tobacco Use Types Packs/Day Years [...]
--- OUTSIDE RECORDS SUMMARY | 2024-11-23 05:12 | XMS_ITS | Encounter Summary ---
Author Organization [facility] Address [address] [place] [address]. [place] [address] [place] [address] Care Team Providers Care Livestock Inspector Name Role Phone Unavailable Primary Care Provider Unavailabl e Encounter Details Date Type Department Care Team (Late st Contact Info) Description 02/24/2002 Abstract [facility] CONVERSION [address] [place] [address] , Generic Conversion, Social History [...]
--- OUTSIDE RECORDS SUMMARY | 2024-11-23 05:12 | XMS_ITS | Encounter Summary ---
Author Organization [facility] Address [address] [place] [address]. [place] [address] [place] [address] Care Team Providers Care Saw Maker Name Role Phone Unavailable Primary Care Provider Unavailabl e Encounter Details Date Type Department Care Team (Late st Contact Info) Description 10/18/2008 Emergency [facility] Emergency Room [place], [place] [id number] Norman Crump MD [address] [facility] [address] [place], [place] [id number] Social History Tobacco Use Types Packs/Day Years [...]
--- OUTSIDE RECORDS SUMMARY | 2024-11-23 05:12 | XMS_ITS | Encounter Summary ---
Author Organization [facility] Address [address] [place] [address]. [place] [address] [place] [address] Care Team Providers Care Casting Wheel Operator Name Role Phone Unavailable Primary Care Provider Unavailabl e Encounter Details Date Type Department Care Team (Late st Contact Info) Description 07/04/2000 Abstract [place] [address] , Generic Conversion, Social History Tobacco Use [...]
--- OUTSIDE RECORDS SUMMARY | 2024-11-23 05:12 | XMS_ITS | Encounter Summary ---
Author Organization [facility] Address [address] [place] [address]. [place] [address] [place] [address] Care Team Providers Care Report Writer Name Role Phone Unavailable Primary Care Provider Unavailabl e Encounter Details Date Type Department Care Team (Late st Contact Info) Description 08/21/2018 Abstract [facility] [address] [place] [address] Izabella King MD [address] [facility] [place] [address] Social History Tobacco Use Types Packs/Day Years [...] Procedure Name Priority Date/Time Associated Diagnosis Comments HEALTH FAIR WITH LIPID Routine 08/21/2018 2:28 AM CDT VITAMIN D, 25 OH Routine 08/21/2018 2:28 AM CDT documented in this encounter Results * VITAMIN D, 25 OH (08/21/2018 2:28 AM CDT) VITAMIN D 25 HYDROXY S/P/B 30 30 - 100 NG/ML 08/23/2018 12:18 PM CDT [facility] Comment: ?INTERPRETATION ?DEFICIENT ??<20 ? INSUFFICIENT 20-29 ?SUFFICIENT 30-100 08/21/2018 2:28 AM CDT 08/21/2018 2:29 AM CDT us Generic Conversion Md [facility] Final R esult [facility] [address] [place] [address], * (ABNORMAL) HEALTH FAIR WITH LIPID (08/21/2018 2:28 AM CDT) WBC 8.5 4.4 - 11.0 x10'3/uL 08/21/2018 9:[address] [facility] RBC 4.87 4.50 - 5.10 x10'6/uL 08/21/2018 9:[address] [facility] HGB 14.4 12.3 - 15.3 G/DL 08/21/2018 9:[address] [facility] HCT 43.1 35.9 - 44.6 % 08/21/2018 9:[address] [facility] MCV 88.5 80.0 - 96.0 FL 08/21/2018 9:[address] [facility] MCH 29.6 25.3 - 30.9 PG 08/21/2018 9:[address] [facility] MCHC 33.4 31.0 - 34.1 G/DL 08/21/2018 9:[address] [facility] RDW 13.0 12.4 - 15.1 % 08/21/2018 9:[address] [facility] PLT 249 151 - 353 x10'3/uL 08/21/2018 9:[address] [facility] MPV 9.2(L) 9.6 - 12.0 FL 08/21/2018 9:[address] [facility] RBC MORPHOLOGY NORMAL 08/21/2018 9:[address] [facility] PLT MORPH. NORMAL 08/21/2018 9:[address] [facility] WBC MORPHOLOGY NORMAL 08/21/2018 9:[address] [facility] LYMPHOCYTES % 30.0 15.8 - 45.0 % 08/21/2018 9:[address] [facility] NEUTROPHILS % 55.6 42.1 - 71.9 % 08/21/2018 9:[address] [facility] MONOCYTES % 10.4 5.7 - 12.5 % 08/21/2018 9:[address] [facility] EOSINOPHILS 2.7 0.0 - 5.6 % 08/21/2018 9:30 AM [facility] BASOPHILS 0.9 0.0 - 1.3 % 08/21/2018 9:[address] [facility] ABS. NEUTROPHILS TOTAL 4.72 1.40 - 6.00 x10'3/uL 08/21/2018 9:30 AM [facility] IMMATURE GRANS % 0.4 0.0 - 0.5 % 08/21/2018 9:[address] [facility] ABS. LYMPHOCYTES 2.55 0.80 - 4.70 x10'3/uL 08/21/2018 9:[address] [facility] GLUCOSE 151(H) 70 - 99 MG/DL 08/21/2018 7:[address] [facility] BUN 15 7 - 18 MG/DL 08/21/2018 7:[address] [facility] CREATININE S/P/B 0.81 0.55 - 1.02 MG/DL 08/21/2018 7:11 PM [facility] SODIUM S/P/B 137 136 - 145 MMOL/L 08/21/2018 7:11 PM [facility] POTASSIUM S/P/B 4.0 3.5 - 5.1 MMOL/L 08/21/2018 7:11 PM [facility] CHLORIDE S/P/B 101 100 - 108 MMOL/L 08/21/2018 7:11 PM [facility] CO2 27.8 21 - 32 MMOL/L 08/21/2018 7:11 PM [facility] CALCIUM S/P/B 9.1 8.5 - 10.1 MG/DL 08/21/2018 7:11 PM [facility] BILIRUBIN TOTAL S/P/B 0.7 0.2 - 1.2 MG/DL 08/21/2018 7:11 PM [facility] TOTAL PROTEIN S/P/B 6.9 6.4 - 8.2 G/DL 08/21/2018 7:11 PM [facility] ALBUMIN S/P/B 3.8 3.4 - 5.0 G/DL 08/21/2018 7:11 PM [facility] AST 32 15 - 37 U/L 08/21/2018 7:11 PM [facility] ALT 65(H) 14 - 55 U/L 08/21/2018 7:11 PM [facility] ALKALINE PHOSPHATASE S/P/B 107 50 - 136 U/L 08/21/2018 7:11 PM [facility] ANION GAP 12.2 8 - 20 MMOL/L 08/21/2018 7:11 PM [facility] BUN CREATININE RATIO 18.5 6 - 26 08/21/2018 7:11 PM [facility] A/G RATIO 1.2 1.0 - 2.0 RATIO 08/21/2018 7:11 PM [facility] EGFR NON-AFR. AMER. 73(L) >90 ML/MIN/1. 73 M2 08/21/2018 7:11 PM [facility] EGFR AFR. AMER. 85(L) >90 ML/MIN/1. 73 M2 08/21/2018 7:11 PM [facility] Comment: NOTE: eGFR is not calculated for patients <18 years of age. This is an estimated GFR (CKD EPI) and should not be used for calculating drug doses. CHOLESTEROL 215(H) <200.0 MG/DL 08/21/2018 7:11 PM [facility] TRIGLYCERIDES 155(H) <150 MG/DL 08/21/2018 7:11 PM [facility] HDL 37(L) >40.0 MG/DL 08/21/2018 7:11 PM [facility] LDL (CALCULATED) 147(H) <100 MG/DL 08/21/2018 7:11 PM [facility] NON HDL CHOLESTEROL 178(H) <130 MG/DL 08/21/2018 7:11 PM [facility] CHOL/HDL RATIO 5.8(H) 0.0 - 4.5 08/21/2018 7:11 PM [facility] VLDL CALCULATION 31 5 - 55 MG/DL 08/21/2018 7:11 PM [facility] LIPID INTERPRETATION 08/21/2018 7:11 PM [facility] Comment: [facility] REPORT RECOMMENDATIONS: ?ADULT ? CHILD ??LOW RISK: ?CHOLESTEROL ? <200 ? <170 ? TRIGLYCERIDE ?<150 ?--- ?HDL ? >=60 ?--- ?LDL ? <100 ? <110 ?? BORDERLINE: ?CHOLESTEROL ? 200-239 ?? 170-199 ?TRIGLYCERIDE ?150-199 ? --- ?HDL ? 40-59 ?--- ?LDL ? 100-159 ?? 110- 129 ?? HIGH RISK: ? CHOLESTEROL ? >=240 ?>=200 ?TRIGLYCERIDE ?>=200 ? --- ?HDL ?<40 ?--- ?LDL ? >=160 ?>=130 TSH 4.411(H) 0.358 - 3.74 uIU/ML 08/21/2018 7:[address] [facility] Comment: HIGH DOSES OF BIOTIN MAY INTERFERE WITH THIS TEST RESULT. CORRELATION TO CLINICAL HISTORY AND PRESENTATION RECOMMENDED. OTHER (type in comments) 08/21/2018 2:28 AM CDT 08/21/2018 2:29 AM CDT Comment:WHOLE BLOOD SAMPLE ~ ~ACELLULAR BLOOD (SERUM OR PLASMA) SPECIMEN us Generic Conversion Md [facility] Final R esult Performing Organization Address City/State/[facility] Co de Phone Number [facility] [address] [place] [address], [place] [phone] documented in this encounter Visit Diagnoses Not on filedocumented in this encounter
--- OUTSIDE RECORDS SUMMARY | 2024-11-23 05:12 | XMS_ITS | Clinical Summary ---
Author Organization [facility] Address [address] [place] [address]. [place] [address] [place] [address] Care Team Providers Care Cad Designer Name Role Phone Marah Jonas Primary Care Provider [phone] Allergies No known active allergies Medications ondansetron 4 MG disintegrating tablet Take 1 tablet (4 mg total) by mouth every 8 (eight) hours as needed for Nausea. 12 tablet 0 Active amlodipine 10 MG tablet Take 1 tablet (10 mg total) by mouth daily. 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 INSTRUMENT REPAIR SPECIALIST Pulse 90 11/12/2019 7:00 PM SURGICAL INSTRUMENT REPAIR SPECIALIST Temperature 36.6 ??C (97.8 ??F) 11/12/2019 4:22 PM CS T Respiratory Rate 14 11/12/2019 7:00 PM SURGICAL INSTRUMENT REPAIR SPECIALIST Oxygen Saturation 95% 11/12/2019 7:00 PM SURGICAL INSTRUMENT REPAIR SPECIALIST Inhaled Oxygen Concentration - - Weight 124.1 kg (273 lb 8 oz) 11/12/2019 4:22 P M SURGICAL INSTRUMENT REPAIR SPECIALIST Height 165.1 cm (5' 5 ) 11/12/2019 4:22 PM SURGICAL INSTRUMENT REPAIR SPECIALIST Body Mass Index 45.51 11/12/2019 4:22 PM SURGICAL INSTRUMENT REPAIR SPECIALIST Plan of Treatment Health Maintenance Due Date Last Done Comments Hepatitis C 1963 DTaP, Tdap and Td Vaccines ( 1 - Tdap) 1966 Zoster Vaccines (1 of 2) 1997 Annual Medicare Wellness Visit 2012 Dexa Scan (General) 2012 Pneumococcal Vaccine: 65+ Ye ars (2 of 2 - PPSV23 or PCV20) 01/13/2020 01/12/2019 RSV Immunization or 60+ Years (1 - 1-dose 75+ series) 2022 COVID-19 Vaccine (1 - 2023-2 5 season) 2024 Influenza Adult (#1) 2024 Meningococcal Vaccine Aged Out No leighann shana eligible based on patient's age to complete this topic RSV Immunizations Under 20 Months Aged Out No longer eligible based on patient's age to complete this topic Insurance [address] [place] [address] MEDICARE Care Teams Cad Designer Relationship Specialty Start Date End Date Marah Jonsa PA [address] [facility] [address] [place] [address] PCP - General PHYSICIAN COMPUTER ENGINEER 11/12/19
--- OUTSIDE RECORDS SUMMARY | 2024-11-23 05:13 | XMS_ITS | Encounter Summary ---
Author Organization [facility] Healthcare Address [address] [place] [address] Care Team Providers Care Oil Dispenser Name Role Phone Marah Jonas Primary Care Provider [phone]- [phone] Reason for Visit * Reason Comments chronic concerns Encounter Details Date Type Department Care Team (Late st Contact Info) Description 09/22/2023 8:00 AM HUMAN RESOURCES RECRUITER Office Visit [facility] Medical [facility] Family Medicine [address] [facility] [address] [place] [address] Marah Jonas PA [address] [facility] [address] [place] [address] Hypertension associated with diabetes (HCC) (Primary Dx); Fatigue, unspecified type; Hyperlipidemia associated with type 2 diabetes mellitus (HCC); Type 2 diabetes mellitus without complication, without long-term current use of insulin (CMS/HCC) (HCC); Obesity, morbid, BMI 40.0-49.9 (HCC); BMI 40.0-44.9, adult (HCC) Social History Tobacco Use Types Packs/Day Years Used Date Smoking Tobacco: Never Smokeless Tobacco: Never Tobacco Cessation:Counseling Given: Not Answered Alcohol Use Standard Drinks/Week Comments Never 0 (1 standard drink = 0.6 oz pur e alcohol) AUDIT-C Answer Date Recorded Q1: How often do you have a drink containing alcohol? Never 05/19/2023 Q2: How many drinks containi ng alcohol do you have on a typical day when you are drinking? Patient does not drink Q3: How often do you have si x or more drinks on one occasion? Never 05/19/2023 PHQ-2 Answer Date Recorded PHQ-2 Total Score (If total score is 3 or more points, staff should administer the PHQ-9) 0 09/22/2023 Comments Unknown Sex and Gender Information Value Date Recorded Sex Assigned at Not on file Legal Sex Female 6:23 PM HUMAN RESOURCES RECRUITER Gender Identity Not on file Sexual Orientation Not on file Occupation Industry Job Start Date Job End Date Retired Not on file Not on file Not on file documented as of this encounter Last Filed Vital Signs Vital Sign Reading Time Taken Comments Blood Pressure 138/82 09/22/2023 8:02 AM HUMAN RESOURCES RECRUITER Pulse 79 09/22/2023 8:02 AM HUMAN RESOURCES RECRUITER Temperature 36.7 ??C (98.1 ??F) 09/22/2023 8:02 AM CS T Respiratory Rate - - Oxygen Saturation 99% 09/22/2023 8:02 AM HUMAN RESOURCES RECRUITER Inhaled Oxygen Concentration - - Weight 116.6 kg (257 lb) 09/22/2023 8:02 AM HUMAN RESOURCES RECRUITER Height 165.1 cm (5' 5 ) 09/22/2023 8:02 AM HUMAN RESOURCES RECRUITER Body Mass Index 42.77 09/22/2023 8:02 AM HUMAN RESOURCES RECRUITER documented in this encounter Ordered Prescriptions Prescription Sig Dispense Quantity Refills Last Filled Start Date End Date amLODIPine (NORVASC) 10 mg tablet Take 1 tablet (10 mg total) by mouth daily 90 tablet 2 09/22/2023 lisinopriL (PRINIVIL,ZESTRIL) 2.5 mg tablet Take 1 tablet (2.5 mg total) by mouth daily 90 tablet 2 09/22/2023 rosuvastatin (CRESTOR) 10 mg tablet Take 1 tablet (10 mg total) by mouth daily 90 tablet 1 09/22/2023 01/30/2024 documented in this encounter Progress Notes * Marah Jonas PA - 09/22/2023 8:00 AM CST Images from the original note were not included. Subjective/Objective Patient ID: Mandy Oconnor is a 78 y.o. female. Chief Complaint chronic concerns HPI Patient presents to followup chronic concerns. HTN - Lisinopril 2.5 and Amlodipine 10 HLD - Crestor 10 DM - Rybelsus 14 A1c 09/2023 was 7.4 Chemistry Lab Results Component Value Date SODIUM 139 09/17/2023 POTASSIUM 4.1 08/28/2022 CHLORIDE 100 09/17/2023 CO2 24 09/17/2023 ANIONGAP 11 06/26/2021 BUNSER 13 09/17/2023 CREATININE 0.61 09/17/2023 GLUCOSE 159 (H) 09/17/2023 CALCIUM 9.5 09/17/2023 BILITOT 0.5 09/17/2023 PROTEIN 6.9 09/17/2023 ALBUMIN 4.5 09/17/2023 GFRNAA >90 06/26/2021 ALKPHOS 106 09/17/2023 AST 19 09/17/2023 ALT 20 09/17/2023 Lab Results Component Value Date HGBA1C 7.4 (H) 09/17/2023 Lab Results Component Value Date CHOL 199 09/17/2023 CHOL 137 05/13/2023 CHOL 223 (H) 12/09/2022 Lab Results Component Value Date HDL 38 (L) 09/17/2023 HDL 34 (L) 05/13/2023 HDL 39 (L) 12/09/2022 Lab Results Component Value Date LDLCALC 127 (H) 09/17/2023 LDLCALC 73 05/13/2023 LDLCALC 152 (H) 12/09/2022 LDL 93 08/28/2022 LDL 138 (H) 01/15/2022 LDL 155 (H) 05/18/2021 Lab Results Component Value Date TRIG 188 (H) 09/17/2023 TRIG 178 (H) 05/13/2023 TRIG 177 (H) 12/09/2022 No results found for: POCCHDLR No results found for: POCNONHDL No results found for: POCCHLPL Lab Results Component Value Date TSH 2.770 09/17/2023 Review of Systems See HPI Vitals: 09/22/23 0802 BP: 138/82 BP Location: Left arm Patient Position: Sitting Pulse: 79 Temp: 36.7 ??C (98.1 ??F) TempSrc: Oral SpO2: 99% Weight: 116.6 kg (257 lb) Height: 165.1 cm (5' 5 ) Physical Exam Vitals and nursing note reviewed. Constitutional: Appearance: She is well-developed. HENT: Head: Normocephalic and atraumatic. Eyes: Comments: Pupils are equal Cardiovascular: Rate and Rhythm: Normal rate and regular rhythm. Heart sounds: No murmur heard. Pulmonary: Effort: Pulmonary effort is normal. Breath sounds: Normal breath sounds. Abdominal: Palpations: Abdomen is soft. Tenderness: There is no abdominal tenderness. Skin: General: Skin is warm and dry. Findings: No rash. Neurological: Mental Status: She is alert and oriented to person, place, and time. Assessment/Plan Diagnoses and all orders for this visit: Hypertension associated with diabetes ([facility]) (E11.59, I15.2) (Primary) Assessment & Plan: Bp is stable/in acceptable range for any co-morbidities. Encouraged to limit sodium intake and exercise for weight control. Continue lisinopril 2.5 and amlodipine 10 Orders: - Albumin Creatinine Ratio, Urine; Future - Comprehensive metabolic panel; Future - Hemoglobin A1c; Future - Lipid panel; Future - Vitamin B12; Future Fatigue, unspecified type (R53.83) Assessment & Plan: Probably multifactorial. Check labs and followup to re-evaluate Orders: - CBC with auto differential; Future - TSH; Future - Vitamin B12; Future Hyperlipidemia associated with type 2 diabetes mellitus ([facility]) (E11.69, E78.5) Assessment & Plan: Encouraged patient to follow low fat/low chol diet like the Mediterranean diet. Increase good fats in the diet. Increase exercise. Monitor labs as needed. Continue Crestor 10 daily Type 2 diabetes mellitus without complication, without long-term current use of insulin ([facility]) ([facility]) (E11.9) Assessment & Plan: Stressed importance of continued A1c control to minimize the intermediate effects of diabetes. Bring accuchecks to office when instructed to do so. Check A1c about every 3-6 months. Take medication as prescribed. Get annual eye exam. Encouraged ASHA/Statin if able to tolerate. Encouraged weight controland encouraged diabetic diet and exercise. A1c is nicely controlled at 7.4. Continue Rybelsus 14 Obesity, morbid, BMI 40.0-49.9 ([facility]) (E66.01) Assessment & Plan: Discussed the patient's BMI. The BMI is above average. BMI management plan is completed. BMI Follow-up includes: nutrition counseling, exercise counseling and education provided. BMI 40.0-44.9, adult (HCC) (Z68.41) Assessment & Plan: Discussed the patient's BMI. The BMI is above average. BMI management plan is completed. BMI Follow-up includes: nutrition counseling, exercise counseling and education provided. Other orders - rosuvastatin (CRESTOR) 10 mg tablet; Take 1 tablet (10 mg total) by mouth daily - lisinopriL (PRINIVIL,ZESTRIL) 2.5 mg tablet; Take 1 tablet (2.5 mg total) by mouth daily - amLODIPine (NORVASC) 10 mg tablet; Take 1 tablet (10 mg total) by mouth daily *This note is dictated using itravel voice recognition software, variances in spelling and vocabulary are possible and unintentional.* Marah Jonas PA-C N RESOURCES RECRUITER documented in this encounter Miscellaneous Notes * Assessment & Plan Note - Marah Jonas PA - 09/22/2023 11:06 AM HUMAN RESOURCES RECRUITER Associated Problem(s): BMI 40.0-44.9, adult (HCC) Discussed the patient's BMI. The BMI is above average. BMI management plan is completed. BMI Follow-up includes: nutrition counseling, exercise counseling and education provided. N RESOURCES RECRUITER * Assessment & Plan Note - Marah Jonas PA - 09/22/2023 11:05 AM HUMAN RESOURCES RECRUITER Associated Problem(s): Fatigue (Resolved 06/14/2024) Probably multifactorial. Check labs and followup to re-evaluate N RESOURCES RECRUITER * Assessment & Plan Note - Marah Jonas PA - 09/22/2023 11:05 AM HUMAN RESOURCES RECRUITER Associated Problem(s): Hypertension associated with diabetes (HCC) Bp is stable/in acceptable range for any co-morbidities. Encouraged to limit sodium intake and exercise for weight control. Continue lisinopril 2.5 and amlodipine 10 N RESOURCES RECRUITER * Assessment & Plan Note - Marah Jonas PA - 09/22/2023 11:05 AM HUMAN RESOURCES RECRUITER Associated Problem(s): Hyperlipidemia associated with type 2 diabetes mellitus (HCC) Encouraged patient to follow low fat/low chol diet like the Mediterranean diet. Increase good fats in the diet. Increase exercise. Monitor labs as needed. Continue Crestor 10 daily N RESOURCES RECRUITER * Assessment & Plan Note - Marah Jonas PA - 09/22/2023 11:05 AM HUMAN RESOURCES RECRUITER Associated Problem(s): Controlled type 2 diabetes mellitus without complication, without long-term current use of insulin ([facility]/HCC) ([facility]) Stressed importance of continued A1c control to minimize the terminal computer operator effects of diabetes. Bring accuchecks to office when instructed to do so. Check A1c about every 3-6 months. Take medication as prescribed. Get annual eye exam. Encouraged ASHA/Statin if able to tolerate. Encouraged weight controland encouraged diabetic diet and exercise. A1c is nicely controlled at 7.4. Continue Rybelsus 14 N RESOURCES RECRUITER * Assessment & Plan Note - Cara Persaud MA - 09/22/2023 8:13 AM HUMAN RESOURCES RECRUITER Associated Problem(s): Obesity, morbid, BMI 40.0-49.9 ([facility]) (Resolved 02/15/2024) Discussed the patient's BMI. The BMI is above average. BMI management plan is completed. BMI Follow-up includes: nutrition counseling, exercise counseling and education provided. N RESOURCES RECRUITER documented in this encounter Plan of Treatment Not on file documented as of this encounter Procedures Procedure Name Priority Date/Time Associated Diagnosis Comments CBC WITH AUTO DIFFERENTIAL Routine 01/23/2024 8:15 AM CDT Fatigue, unspecified type ALBUMIN CREATININE RATIO, URINE Routine 01/23/2024 8:15 AM CDT Hypertension associated with diabetes (HCC) TSH Routine 01/23/2024 8:15 AM CDT Fatigue, unspecified type HEMOGLOBIN A1C Routine 01/23/2024 8:15 AM CDT Hypertension associated with diabetes (HCC) VITAMIN B12 Routine 01/23/2024 8:15 AM CDT Hypertension associated with diabetes (HCC) Fatigue, unspecified type LIPID PANEL Routine 01/23/2024 8:15 AM CDT Hypertension associated with diabetes (HCC) COMPREHENSIVE METABOLIC PANEL Routine 01/23/2024 8:15 AM CDT Hypertension associated with diabetes (HCC) documented in this encounter Results * Vitamin B12 (01/23/2024 8:15 AM CDT) Vitamin B12 269 232 - 1,245 pg/mL [facility] - 01 Blood 01/23/2024 8:15 AM CDT 01/23/2024 Narrative [facility] - 01/24/2024 4:11 PM CDT Performed at: ??01 - [facility] [address] ??[id number] [employer]: Enrique Dunne PhD, Phone: ??[phone] us Marah WELCH LAB BLOOD ORDERABLES Final Result [facility] - 01 * TSH (01/23/2024 8:15 AM CDT) TSH 3.250 0.450 - 4.500 uIU/mL [facility] - 01 Blood 01/23/2024 8:15 AM CDT 01/23/2024 Narrative [facility] - 01/24/2024 4:11 PM CDT Performed at: ??01 - [facility] ??[id number] [employer]: Enrique Dunne PhD, Phone: ??[phone] Marah WELCH LAB BLOOD ORDERABLES Final Result Performing Organization Address [facility] de Phone Number [facility] - * (ABNORMAL) Lipid panel (01/23/2024 8:15 AM CDT) Cholesterol 220(H) 100 - 199 mg/dL [facility] - 01 Triglycerides 182(H) 0 - 149 mg/dL [facility] - 01 HDL Cholesterol 39(L) >39 mg/dL [facility] - 01 VLDL 33 5 - 40 mg/dL [facility] - 01 LDL, calculated 148(H) 0 - 99 mg/dL [facility] - 01 Blood 01/23/2024 8:15 AM CDT 01/23/2024 Narrative [facility] - 01/24/2024 9:36 AM CDT Performed at: ??01 - [facility] ??[id number] [employer]: Enrique Dunne PhD, Phone: ??[phone] Marah WELCH LAB BLOOD ORDERABLES Final Result Performing Organization Address [facility] de Phone Number [facility] - * (ABNORMAL) Hemoglobin A1c (01/23/2024 8:15 AM CDT) Hgb A1C 8.3(H) 4.8 - 5.6 % [facility] - 01 Comment: ? Prediabetes: 5.7 - 6.4 ? Diabetes: >6.4 ? Glycemic control for adults with diabetes: <7.0 Blood 01/23/2024 8:15 AM CDT 01/23/2024 Narrative [facility] - 01/24/2024 9:36 AM CDT Performed at: ?? - [facility] ??[id number] [employer]: Enrique Dunne PhD, Phone: ??[phone] Marah WELCH LAB BLOOD ORDERABLES Final Result [facility] - 01 * (ABNORMAL) Comprehensive metabolic panel (01/23/2024 8:15 AM CDT) Glucose 190(H) 70 - 99 mg/dL [facility] - 01 BUN 16 8 - 27 mg/dL [facility] - 01 Creatinine, Serum 0.69 0.57 - 1.00 mg/dL [facility] - 01 eGFR 90 >59 mL/min/1.7 3 [facility] - 01 BUN/creat ratio 23 12 - 28 [facility] - 01 Sodium 137 134 - 144 mmol/L [facility] - 01 Potassium, sr 5.1 3.5 - 5.2 mmol/L [facility] - 01 Chloride 99 96 - 106 mmol/L [facility] - 01 CO2 22 20 - 29 mmol/L [facility] - 01 Calcium 9.7 8.7 - 10.3 mg/dL [facility] - 01 Protein, sr 6.9 6.0 - 8.5 g/dL [facility] - 01 Albumin 4.3 3.8 - 4.8 g/dL [facility] - 01 Globulin, Total 2.6 1.5 - 4.5 g/dL [facility] - 01 A/G Ratio 1.7 1.2 - 2.2 [facility] - 01 Bilirubin, Total 0.5 0.0 - 1.2 mg/dL [facility] - 01 Alk phos 113 44 - 121 IU/L [facility] - 01 AST 16 0 - 40 IU/L [facility] - 01 ALT 19 0 - 32 IU/L [facility] - 01 Blood 01/23/2024 8:15 AM CDT 01/23/2024 Narrative [facility] - 01/24/2024 9:36 AM CDT Performed at: ?? - [facility] [address], [place], [place] ??[id number] [employer]: Enrique Dunne PhD, Phone: ??[phone] Marah WELCH LAB BLOOD ORDERABLES Final Result [facility] - 01 * (ABNORMAL) CBC with auto differential (01/23/2024 8:15 AM CDT) Pathologist [facility] WBC 10.5 3.4 - 10.8 x10E3/uL [facility] - 01 RBC 5.25 3.77 - 5.28 x10E6/uL [facility] - 01 Hgb 15.4 11.1 - 15.9 g/dL [facility] - 01 Hct 46.1 34.0 - 46.6 % [facility] - 01 MCV 88 79 - 97 fL [facility] - 01 MCH 29.3 26.6 - 33.0 pg [facility] - 01 MCHC 33.4 31.5 - 35.7 g/dL [facility] - 01 Rdw 12.6 11.7 - 15.4 % [facility] - 01 Platelets 285 150 - 450 x10E3/uL [facility] - 01 Neutrophils pct 56 Not Estab. % [facility] - 01 Lymphs pct 33 Not Estab. % [facility] - 01 Monocytes pct 8 Not Estab. % [facility] - 01 Eosinophils pct 2 Not Estab. % [facility] - 01 Basophil pct 1 Not Estab. % [facility] - 01 Neutrophil abs 5.9 1.4 - 7.0 x10E3/uL [facility] - 01 Lymphs (Absolute) 3.4(H) 0.7 - 3.1 x10E3/uL [facility] - 01 Monocyte abs 0.9 0.1 - 0.9 x10E3/uL [facility] - 01 Eosinophils, abs 0.2 0.0 - 0.4 x10E3/uL [facility] - 01 Basophils, abs 0.1 0.0 - 0.2 x10E3/uL [facility] - 01 Immature Granulocytes 0 Not Estab. % [facility] - 01 Immature Grans (Abs) 0.0 0.0 - 0.1 x10E3/uL [facility] - 01 Blood 01/23/2024 8:15 AM CDT 01/23/2024 Narrative [facility] - 01/24/2024 7:38 AM CDT Performed at: ??01 - [facility] [address] ??[id number] [employer]: Enrique Dunne PhD, Phone: ??[phone] Marah WELCH LAB BLOOD ORDERABLES Final Result Performing Organization Address City/[facility]/ZIP Co de Phone Number [facility] - 01 * Albumin Creatinine Ratio, Urine (01/23/2024 8:15 AM CDT) Creatinine ur 256.0 Not Estab. mg/dL [facility] - 01 Microalbumin, ur 67.2 Not Estab. ug/mL [facility] - 01 Microalbumin/cre at ratio 26 0 - 29 mg/g creat [facility] - 01 Comment: ? Normal: ?0 - ??29 ? Moderately increased: 30 - 300 ? Severely increased: ? >300 Urine 01/23/2024 8:15 AM CDT 01/23/2024 Narrative [facility] - 01/24/2024 9:36 AM CDT Performed at: ??01 - [facility] [address] ??[id number] [employer]: Enrique Dunne PhD, Phone: ??[phone] Marah WELCH LAB URINE ORDERABLES Final Result [facility] - 01 documented in this encounter Visit Diagnoses Diagnosis Hypertension associated with diabetes (HCC)- Primary Unspecified essential hypertension Fatigue, unspecified type Hyperlipidemia associated with type 2 diabetes mellitus (HCC) Type 2 diabetes mellitus without complication, without long-term current use of insulin ([facility]/HCC) ([facility]) Obesity, morbid, BMI 40.0-49.9 ([facility]) BMI 40.0-44.9, adult ([facility]) documented in this encounter Discontinued Medications Medication Sig Discontinue Reason Start Date End Da te azithromycin (ZITHROMAX) 250 mg tabletIndications:Lower respiratory infection (e.g., bronchitis, pneumonia, pneumonitis, pulmonitis) Take 2 tablets the first day, then 1 tablet daily for 4 days. Therapy completed 07/14/2023 09/22/2023 rosuvastatin (CRESTOR) 10 mg tablet Take 0.5 tablets (5 mg total) by mouth daily 12/12/2022 09/22/2023 amLODIPine (NORVASC) 10 mg tablet Take 1 tablet (10 mg total) by mouth daily Reorder 05/19/2023 09/22/2023 lisinopriL (PRINIVIL,ZESTRIL) 2.5 mg tablet Take 1 tablet (2.5 mg total) by mouth daily Reorder 05/19/2023 09/22/2023 documented as of this encounter Care Teams Oil Dispenser Relationship Specialty Start Date End Date Marah Jonas PA [facility] [address] PCP - General Internal Medicine 04/05/19 documented as of this encounter
--- OUTSIDE RECORDS SUMMARY | 2024-11-23 05:13 | XMS_ITS | Encounter Summary ---
Author Organization [facility] Healthcare Address [address] [place] [address] Care Team Providers Care Emergency Dispatch Operator Name Role Phone Marah Jonas Primary Care Provider [phone]- [phone] Reason for Visit * Reason Comments Cough Dry cough, runny nos e symptoms since Friday Encounter Details Date Type Department Care Team (Late st Contact Info) Description 07/07/2024 8:45 AM CDT Office Visit [facility] at [address] [address] Maddie Rodriguez, SAIMA [address] [place] [address] [address] [place] [address] Influenza A (Primary Dx) Social History Tobacco Use Types Packs/Day Years Used Date Smoking Tobacco: Never Smokeless Tobacco: Never Alcohol Use Standard Drinks/Week Comments Never 0 (1 standard drink = 0.6 oz pur e alcohol) AUDIT-C Answer Date Recorded Q1: How often do you have a drink containing alc ohol? Monthly or less 01/30/2024 Q2: How many drinks containi ng alcohol do you have on a typical day when you are drinking? 1 or 2 01/30/2024 Q3: How often do you have si x or more drinks on one occasion? 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 Gender Identity Not on file Sexual Orientation Not on file Occupation Industry Job Start Date Job End Date Retired Not on file Not on file Not on file documented as of this encounter Last Filed Vital Signs Vital Sign Reading Time Taken Comments Blood Pressure 132/80 07/07/2024 8:40 AM CDT Pulse 84 07/07/2024 8:40 AM CDT Temperature 36.8 ??C (98.3 ??F) 07/07/2024 8:40 AM CD T Respiratory Rate 20 07/07/2024 8:40 AM CDT Oxygen Saturation 98% 07/07/2024 8:40 AM CDT Inhaled Oxygen Concentration - - Weight 104.3 kg (230 lb) 07/07/2024 8:40 AM CDT Height 161.3 cm (5' 3.5 ) 07/07/2024 8:40 AM CDT Body Mass Index 40.1 07/07/2024 8:40 AM CDT documented in this encounter Patient Instructions * Patient Instructions* Maddie Rodriguez NP - 07/07/2024 8:45 AM CDT Coricidin per package directions If you have no improvement or worsening of your symptoms, please follow up with your Primary Care Provider, [facility] and or Emergency Room. I strive to provide you with EXCELLENT service. You may receive a survey after your visit today. If you cannot rate your experience as EXCELLENT, please let us know how we can improve and better meet your needs. Thank you for choosing [facility]! It was my pleasure to see you today, I hope you feel better soon! Maddie Rodriguez COOK TACO * Attachments The following attachments cannot be sent through Care Everywhere. * Influenza (AfterCare(R) Instructions(ER/ED)) ([place]ahamian) documented in this encounter Progress Notes * Maddie Rodriguez NP - 07/07/2024 8:45 AM CDT Images from the original note were not included. Subjective/Objective Patient ID: Mandy Oconnor is a 79 y.o. female. Chief Complaint Cough (Dry cough, runny nose symptoms since Friday ) [facility] This is a new problem. Episode onset: 3 days ago. Progression since onset: Starting to feel a little bit better today. There has been no fever. Associated symptoms include congestion, coughing and rhinorrhea. Pertinent negatives include no abdominal pain, chest pain, diarrhea, ear pain, headaches, nausea, neck pain, rash, shortness of breath, sinus pain, sneezing, sore throat, vomiting or wheezing. Treatments tried: Mucinex. The treatment provided moderate relief. Review of Systems Constitutional: Positive for chills. Negative for appetite change, diaphoresis, fatigue and fever. HENT: Positive for congestion and rhinorrhea. Negative for ear discharge, ear pain, postnasal drip,sinus pressure, sinus pain, sneezing, sore throat and trouble swallowing. Respiratory: Positive for cough. Negative for chest tightness, shortness of breath and wheezing. Cardiovascular: Negative for chest pain. Gastrointestinal: Negative for abdominal pain, diarrhea, nausea and vomiting. Musculoskeletal: Negative for myalgias, neck pain and neck stiffness. Skin: Negative for rash. Neurological: Negative for dizziness and headaches. Hematological: Negative for adenopathy. Physical Exam Vitals and nursing note reviewed. Constitutional: General: She is awake. She is not in acute distress. Appearance: Normal appearance. HENT: Head: Normocephalic and atraumatic. Right Ear: Tympanic membrane and ear canal normal. Left Ear: Tympanic membrane and ear canal normal. Nose: Congestion and rhinorrhea present. Right Sinus: No maxillary sinus tenderness or frontal sinus tenderness. Left Sinus: No maxillary sinus tenderness or frontal sinus tenderness. Mouth/Throat: Lips: [place]. Mouth: Mucous membranes are moist. Tongue: Tongue does not deviate from midline. Pharynx: Uvula midline. Posterior oropharyngeal erythema (Minimal) present. No pharyngeal swelling,oropharyngeal exudate or uvula swelling. Tonsils: No tonsillar exudate or tonsillar abscesses. 0 on the right. 0 on the left. Eyes: General: Lids are normal. Pupils: Pupils are equal, round, and reactive to light. Cardiovascular: Rate and Rhythm: Normal rate and regular rhythm. Pulses: Normal pulses. Heart sounds: Normal heart sounds. Pulmonary: Effort: Pulmonary effort is normal. No respiratory distress. Breath sounds: Normal breath sounds. No decreased breath sounds, wheezing, rhonchi or rales. Musculoskeletal: Cervical back: Full passive range of motion without pain, normal range of motion and neck supple. Lymphadenopathy: Cervical: No cervical adenopathy. Skin: General: Skin is warm and dry. Neurological: Mental Status: She is alert and oriented to person, place, and time. Gait: Gait normal. Psychiatric: Behavior: Behavior is cooperative. Vitals: 07/07/24 0840 BP: 132/80 Pulse: 84 Resp: 20 Temp: 36.8 ??C (98.3 ??F) TempSrc: Oral SpO2: 98% Weight: 104.3 kg (230 lb) Height: 161.3 cm (5' 3.5 ) No results found. Past Medical History: Diagnosis Date Hypertension Patient Active Problem List Diagnosis History of colon cancer Hyperlipidemia associated with type 2 diabetes mellitus (HCC) Controlled type 2 diabetes mellitus without complication, without long-term current use of insulin (CMS/HCC) (HCC) Abnormal TSH Hypertension associated with diabetes (HCC) Breast cancer screening by mammogram History of 2019 novel coronavirus disease (COVID-19) RUQ discomfort Elevated LFTs BMI 40.0-44.9, adult (HCC) Facial lesion Menopause Morbid obesity (HCC) Low serum vitamin B12 History of colon polyps Colon cancer screening Dysuria Medicare annual wellness visit, subsequent Current Outpatient Medications: amLODIPine (NORVASC) 10 mg tablet, Take 1 tablet (10 mg total) by mouth daily, Disp: 90 tablet, Rfl: 2 cholecalciferol (VITAMIN D-3) 5,000 unit tablet, 0.2 tablets (1,000 Units total), Disp: , Rfl: clotrimazole-betamethasone (LOTRISONE) cream, Apply topically 2 (two) times a day, Disp: 30 g, Rfl:0 collagen, hydrolysate, bovine, (collagen, hydr, bovine,, bulk,) 100 % powder, , Disp: , Rfl: dapagliflozin propanediol (FARXIGA) 10 mg tablet, Take 1 tablet (10 mg total) by mouth daily, Disp:90 tablet, Rfl: 1 fluconazole (DIFLUCAN) 150 mg tablet, TAKE ONE TABLET BY MOUTH A ONE-TIME DOSE, Disp: , Rfl: fluticasone propionate (FLONASE) 50 mcg/actuation nasal spray, Administer 1 spray into each nostrildaily, Disp: 3 Inhaler, Rfl: 2 lisinopriL (PRINIVIL,ZESTRIL) 2.5 mg tablet, Take 1 tablet (2.5 mg total) by mouth daily, Disp: 90 tablet, Rfl: 2 llhaz-7-pth-gti-tcq-xmoh oil 1,050-1,200 mg capsule, Rx: [place] 3, Disp: , Rfl: rosuvastatin (CRESTOR) 20 mg tablet, Take 1 tablet (20 mg total) by mouth daily, Disp: 90 tablet, Rfl: 1 semaglutide (RYBELSUS) 14 mg tablet, 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, Disp: 30 tablet, Rfl: 0 meclizine (ANTIVERT) 25 mg tablet, TK 1 T PO TID PRN FOR DIZZINESS (Patient not taking: Reported on09/11/2022), Disp: , Rfl: multivitamin with minerals (DAILY MULTIVITAMIN-MINERALS ORAL), , Disp: , Rfl: No Known Allergies Social History Tobacco Use Smoking status: Never Smokeless tobacco: Never Substance and Sexual Activity Drug use: Never Sexual activity: Defer Alcohol Use: Not At Risk (01/30/2024) AUDIT-C Frequency of Alcohol Consumption: Monthly or less Average Number of Drinks: 1 or 2 Frequency of Binge Drinking: Never Past Surgical History: Procedure Laterality Date SECTION CHOLECYSTECTOMY HYSTERECTOMY Assessment/Plan Diagnoses and all orders for this visit: Influenza A (Primary) - POC Influenza A/B, COVID-19 antigen Recent Results (from the past 4 hour(s)) POC Influenza A/B, COVID-19 antigen Collection Time: 07/07/24 8:48 AM Result Value Ref Range Influenza A Ag, POC Positive (A) Negative Influenza B Ag, POC Negative Negative COVID-19 Ag POC Presumptive Negative Presumptive Negative, Invalid -discussed trial of Coricidin per package directions -discussed deep breath exercises 9-12 times daily Patient Education: Influenza ?? Supportive care is the focus of care with influenza-make sure to stay well- hydrated and treat symptoms with over the counter medications for symptom relief. ?? Take guaifenesin expectorants, i.e. Maximum Strength Mucinex, Robitussin, or store brand for chest congestion. ?? For cough, dextromethorphan (Delsym syrup, Robitussin cough capsules or store brand). Dextromethorphan is considered safe for and breast feeding women. ?? Antihistamine, i.e. Claritin, Zyrtec or Benadryl for nasal drainage, per package directions. ?? Increase oral fluids to at least 2 liters (2 quarts) of non-caffeinated, non- alcoholic beveragesdaily ?? Increase rest, monitor temperature ?? May alternate acetaminophen (Tylenol) and ibuprofen (Motrin or Advil) with food every 4-6 hours for fever, body aches, headache or sore throat. Do not exceed maximum daily dose per package instructions ?? May use hard candy, throat lozenges, Chloraseptic spray or warm salt water gargles to soothe throat ?? Activity as tolerated, Avoid crowds and large groups ?? Avoid spreading germs by washing hands frequently and covering mouth when coughing ?? People with influenza are contagious 1 day before symptoms begin and up to 7 days after getting sick Influenza Follow-up ?? Follow up with the clinic, primary care provider(Marah Jonas PA) or urgent care if symptoms become more severe. ?? If you begin to feel better, then feel significantly worse, see your primary care provider or [facility] urgent care / ER ?? Call 911 or have someone take you to ER/Urgent Care if any difficulty with breathing or shortness of breath, if you develop high fevers that do not respond to ibuprofen (Advil / Motrin) or acetaminophen (Tylenol) , if you have a hard time awakening or staying awake or become lethargic or confused, or if you develop new stiffness in your neck. If you need to be excused from more than 3 days off from work, please follow-up with your PCP. Disposition Treatment plan including expectations, follow up, and return precautions discussed with patient/parent, verbalizes understanding. Medication dosage, use, and potential adverse reactions discussed with patient/parent. Advised to follow up with PCP if symptoms do not resolve as expected or sooner if condition worsens. Signs/symptoms warranting ER evaluation reviewed. Patient and/or guardian was given an opportunity to ask questions, questions answered. Maddie Rodriguez NP This office note has been partially dictated using [employer] software, and as a result portions of the record may have been created with this software. Occasional wrong-word or '[id number]' substitutions may have occurred due to the inherent limitations of voice recognition software. Read the chartcarefully and recognize, using context, where substitutions have occurred. Cosigned by Joseph Reyes MD at 07/07/2024 10:55 AM CDT documented in this encounter Plan of Treatment Not on file documented as of this encounter Procedures Procedure Name Priority Date/Time Associated Diagnosis Comments POC INFLUENZA A/B, COVID-19 ANTIGEN Routine 07/07/2024 8:48 AM CDT Influenza A documented in this encounter Results * (ABNORMAL) POC Influenza A/B, COVID-19 antigen (07/07/2024 8:48 AM CDT) Influenza A Ag, POC Positive(A) Negative [facility] Influenza B Ag, POC Negative Negative [facility] COVID-19 Ag POC Presumptive Negative Presumptive Negative, Invalid [facility] Nasal 07/07/2024 8:48 AM CDT us Maddie Rodriguez NP POINT OF CARE TEST ORDERABLES F inal Result [facility] [address] [place] [address] documented in this encounter Visit Diagnoses Diagnosis Influenza A- Primary Influenza with other respiratory manifestations documented in this encounter Additional Health Concerns Infection Onset Date Last Indicated Resolved Time COVID: Suspected 07/07/2024 07/07/2024 07/07/2024 8:49 AM CDT Influenza, adult 07/07/2024 07/07/2024 07/14/2024 3:05 AM CDT documented as of this encounter Care Teams Emergency Dispatch Operator Relationship Specialty Start Date End Date Marah Jonas PA [address] [facility] [address] [place] [address] PCP - General Internal Medicine 04/05/19 documented as of this encounter
--- OUTSIDE RECORDS SUMMARY | 2024-11-23 05:13 | XMS_ITS | Encounter Summary ---
Author Organization [facility] Healthcare Address [address] [place] [address] Care Team Providers Care Scroll Saw Operator Name Role Phone Marah Jonas Primary Care Provider [phone]- [phone] Reason for Visit * Reason Onset Date Comments Medical Question/Miscellaneous 10/12/2024 Encounter Details Date Type Department Care Team (Late st Contact Info) Description 10/12/2024 Telephone [facility] Family Medicine [address] [facility] [address] [place] [address] Marah Jonas PA [address] [place] [address] [place] [address] Medical Question/Miscellaneous Social History Tobacco Use Types Packs/Day Years [...] on file 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 LATION SPECIALIST * Telephone Encounter - Vaishali Cee MA - 10/12/2024 11:53 AM CST Medical Question/Miscellaneous Caller???s Concern: Patient would like Myla to call her regarding a form she received regarding Rybelsus. She wants to verify there is nothing else she needs to do. Does message need to be routed? Yes-Action Needed LATION SPECIALIST documented in this encounter Plan of Treatment Not on file documented as of this encounter Visit Diagnoses Not on filedocumented in this encounter Care Teams Scroll Saw Operator Relationship Specialty Start Date End Date Marah Jonas PA [address] [facility] [address] [place] [address] PCP - General Internal Medicine 04/05/19 documented as of this encounter
--- OUTSIDE RECORDS SUMMARY | 2024-11-23 05:13 | XMS_ITS | Clinical Summary ---
Author Organization [facility] Address [address] [place] [address] Care Team Providers Care Service Rig Operator Name Role Phone Marah Jonas Primary Care Provider [phone] Allergies No known active allergies Medications [id number] -dpa-fish oil 1,050-1,200 mg capsule Rx: [place] 3 Active multivitamin with minerals (DAILY MULTIVITAMIN-PA NERALS ORAL) Active meclizine (ANTIVERT) 25 mg tablet TK 1 T PO TID PRN FOR DIZZINESS 0 Active fluticasone propionate (FLONASE) 50 mcg/actuation nasal spray Administer 1 spray into each nostril daily 3 Inhaler 2 0 Active cholecalciferol (VITAMIN D-3) 5,000 unit tablet 0.2 tablets (1,000 Units total) Active collagen, hydrolysate, bovine, (collagen, hydr, bovine,, bulk,) 100 % powder Active lisinopriL (PRINIVIL,ZESTR IL) 2.5 mg tablet Take 1 tablet (2.5 mg total) by mouth daily 90 tablet 2 3 Active amLODIPine (NORVASC) 10 mg tablet Take 1 tablet (10 mg total) by mouth daily 90 tablet 2 3 Active fluconazole (DIFLUCAN) 150 mg tablet TAKE ONE TABLET BY MOUTH A ONE-TIME DOSE 4 Active rosuvastatin (CRESTOR) 20 mg tablet Take 1 tablet (20 mg total) by mouth daily 90 tablet 1 4 Active semaglutide (RYBELSUS) 14 mg tablet Take 1 tablet (14 mg total) by mouth geek squad manager before breakfast 120 tablet 2 4 Active dapagliflozin propanediol (FARXIGA) 10 mg tablet Take 1 tablet (10 mg total) by mouth daily 90 tablet 3 4 Active clotrimazole-be tamethasone (LOTRISONE) cream Apply topically 2 (two) times a day 30 g 4 Active clotrimazole-be tamethasone (LOTRISONE) cream Apply topically 2 (two) times a day 30 g 4 10/26/20 24 Discontin ued(Reord er) Active Problems Problem Noted Date Diagnosed Date Colon cancer screening 06/06/2024 Assessment & Plan (06/14/2024 12:35 AM CDT): Colonoscopy is due. Referral placed Dysuria 06/06/2024 Assessment & Plan (06/14/2024 12:36 AM CDT): This is a significant, separately identifiable problem that was evaluated and managed on the same day as the wellness exam Patient is complaining of increased urgency. Will check urine culture and UA to rule out infection. If symptoms persist may need additional workup. She is on an SG LT which can contribute to increased urination. Urine dip did show nitrates. Will start with Macrobid 100 b.i.d. for 5 days Medicare annual wellness visit, subsequent 06/06 Assessment & Plan (06/14/2024 12:35 AM CDT): Encouraged healthy lifestyle, good nutrition and exercise. Encouraged Calcium and Vitamin D and weight bearing exercise for bone health. Reviewed immunizations. Reviewed age appropirate screenings. Medicare Wellness Documentation is completed within the chart History of colon polyps 02/25/2024 Overview (02/25/2024): Dr. Marcelino did last colonosocpy in 2019-->2023 Morbid obesity 02/15/2024 Assessment & Plan (06/14/2024 12:35 AM CDT): Discussed the patient's BMI. The BMI is above average. BMI management plan is completed. BMI Follow-up includes: nutrition counseling, exercise counseling and education provided. Assessment & Plan (03/16/2024 6:52 PM CDT): Discussed the patient's BMI. The BMI is above average. BMI management plan is completed. BMI Follow-up includes: nutrition counseling, exercise counseling and education provided. Assessment & Plan (02/15/2024 4:01 PM CDT): Discussed the patient's BMI. The BMI is above average. BMI management plan is completed. BMI Follow-up includes: nutrition counseling, exercise counseling and education provided. Low serum vitamin B12 02/15/2024 Assessment & Plan (02/15/2024 4:07 PM CDT): This is a significant, separately identifiable problem that was evaluated and managed on the same day as the wellness exam Vitamin B12 is low. Start B12 1,000mcg daily available over the counter. Facial lesion 01/14/2022 Assessment & Plan (05/19/2023 6:03 PM CDT): Patient previously saw dermatology who determined that all skin biopsies were normal. Encouraged to follow up with Derm as needed. Assessment & Plan (01/14/2022 12:52 PM CDT): Patient has multiple facial lesions. She has never had a full skin exam. Recommend by Dermatology. Referral placed. Menopause 01/14/2022 Assessment & Plan (01/14/2022 12:52 PM CDT): Check DEXA BMI 40.0-44.9, adult 04/18/2021 Assessment & Plan (06/14/2024 12:35 AM CDT): Discussed the patient's BMI. The BMI is above average. BMI management plan is completed. BMI Follow-up includes: nutrition counseling, exercise counseling and education provided. Assessment & Plan (03/16/2024 6:52 PM CDT): Discussed the patient's BMI. The BMI is above average. BMI management plan is completed. BMI Follow-up includes: nutrition counseling, exercise counseling and education provided. Assessment & Plan (02/15/2024 4:00 PM CDT): Discussed the patient's BMI. The BMI is above average. BMI management plan is completed. BMI Follow-up includes: nutrition counseling, exercise counseling and education provided. Assessment & Plan (09/22/2023 11:06 AM BED MAKER): Discussed the patient's BMI. The BMI is above average. BMI management plan is completed. BMI Follow-up includes: nutrition counseling, exercise counseling and education provided. Assessment & Plan (04/18/2021 8:00 AM CDT): Obesity is unchanged. Discussed the patient's BMI. The BMI is above average. BMI management plan is completed. BMI Follow-up includes: nutrition counseling, exercise counseling and education provided. Elevated LFTs 02/11/2021 Overview (06/26/2021): Labs with minimally elevated AST/ALT since 2019, and in 02/2021 she developed acute rise in LFTs with TB 2, AKP 250, AST 100 and ALT 200, which has since resolved, this corresponded to RUQ pain/N/V. MRCP ordered by Gen [facility] and not yet performed scheduled for next month. Hepatitis panel -ve. Iron studies normal. Likely had transient choledocholithiasis, MRCP will help clarify if still present or not. She has all the risk factors for WHITTAKER, with no significant hx of ETOH use, likely responsible for the minimally elevated AST/ALT. Assessment & Plan (05/19/2023 6:04 PM CDT): Following with Dr Nugent as needed. LFTs are normalized and RUQ pain has resolved. Assessment & Plan (06/26/2021 10:43 AM CDT): - Will complete liver dx work-up today with additional labs - Counseled on importance of diet/exercise and control of DM/HTN (elevated Bp today similar to 06/22 with no symptoms, 2/2 white coat HTN per pt) - Will follow MRCP result, we will add MR liver elastography to the study, to quantify amount of steatosis/fibrosis in her liver (Fibroscan will not be accurate given morbid obesity) - Continue routine monitoring of LFTs Assessment & Plan (04/30/2021 12:32 AM CDT): Normalized -- awaiting recommendations from measurement and verification engineer. Assessment & Plan (02/25/2021 9:22 AM CDT): Recheck LFTs to see if transient rise. Check Hepatitis panel CBC is also upper normal so will check ferritin/iron panel. Patient is to followup immediately if increased pain, juandice,etc. RUQ discomfort 02/06/2021 Assessment & Plan (04/30/2021 12:32 AM CDT): Episode of pain that resulted in elevated LFTs --- Still unknown etiology Await recommendations from measurement and verification engineer. Assessment & Plan (02/25/2021 9:21 AM CDT): Pain has resolved, right now. Continue to closely monitor as LFTs are elevated. US essentially normal Assessment & Plan (02/06/2021 12:20 PM CDT): Will evaluate with labs and US - nurse will help her schedule the US She was advised to report to er if worsening Has f/u appt with pcp next week, will keep that appt but contact office in interim if needing assistance History of 2019 novel coronavirus disease (COVID -19) 10/11/2020 Overview (10/11/2020): 09/11/2020 positive test Breast cancer screening by mammogram 06/24/2020 Assessment & Plan (06/14/2024 12:34 AM CDT): Mammogram order provided Assessment & Plan (05/19/2023 6:04 PM CDT): Mammogram order provided Assessment & Plan (01/14/2022 12:51 PM CDT): Mammogram order provided Assessment & Plan (04/30/2021 12:33 AM CDT): Mammogram order provided Assessment & Plan (06/24/2020 10:47 AM CDT): Mammogram order provided Hypertension associated with diabetes 01/23/2020 Assessment & Plan (06/14/2024 12:34 AM CDT): Bp is stable/in acceptable range for any co-morbidities. Encouraged to limit sodium intake and exercise for weight control. Continue lisinopril 2.5 and amlodipine 10 Assessment & Plan (03/16/2024 6:52 PM CDT): Bp is stable/in acceptable range for any co-morbidities. Encouraged to limit sodium intake and exercise for weight control. Continue amlodipine 10 and lisinopril 2.5 Assessment & Plan (02/15/2024 4:00 PM CDT): Bp is stable/in acceptable range for any co-morbidities. Encouraged to limit sodium intake and exercise for weight control. Continue lisinopril 2.5 and amlodipine 10 mg daily Assessment & Plan (09/22/2023 11:05 AM BED MAKER): Bp is stable/in acceptable range for any co-morbidities. Encouraged to limit sodium intake and exercise for weight control. Continue lisinopril 2.5 and amlodipine 10 Assessment & Plan (05/19/2023 5:59 PM CDT): Blood pressure appears elevated on current medication regime. Advised to decrease salt intake. Educated patient on the importance of a healthy lifestyle with diet and exercise on the management of hypertension. Continue medications and monitor blood pressure at home as needed. The plan is to switch to taking lisinopril 2.5 mg in the AM while continuing amlodipine 10 mg in the PM for better blood pressure control. Assessment & Plan (12/22/2022 11:03 PM BED MAKER): Bp is stable/in acceptable range for any co-morbidities. Encouraged to limit sodium intake and exercise for weight control. Continue amlodipine lisinopril Assessment & Plan (09/11/2022 3:22 PM BED MAKER): Bp is stable/in acceptable range for any co-morbidities. Encouraged to limit sodium intake and exercise for weight control. Continue with the amlodipine 10 and the 2.5 of lisinopril more so for renal protection. Assessment & Plan (05/26/2022 10:45 PM CDT): Bp is stable/in acceptable range for any co-morbidities. Encouraged to limit sodium intake and exercise for weight control. Continue amlodipine 10 mg and lisinopril 2.5 for renal protection Assessment & Plan (01/14/2022 12:50 PM CDT): Bp is stable/in acceptable range for any co-morbidities. Encouraged to limit sodium intake and exercise for weight control. Continue amlodipine and lisinopril Assessment & Plan (04/30/2021 12:31 AM CDT): Bp is stable/in acceptable range for any co-morbidities. Encouraged to limit sodium intake and exercise for weight control. Continue amlodipine and lisinopril Assessment & Plan (02/12/2021 9:01 AM CDT): Bp is stable/in acceptable range for any co-morbidities. Encouraged to limit sodium intake and exercise for weight control. Continue amlodipine and lisinopril Assessment & Plan (10/13/2020 4:34 PM BED MAKER): Bp is stable/in acceptable range for any co-morbidities. Encouraged to limit sodium intake and exercise for weight control. Continue Amlodipine. Will start low dose lisiniopril 2.5mg to provide renal protection Assessment & Plan (06/24/2020 10:45 AM CDT): Bp is stable/in acceptable range for any co-morbidities. Encouraged to limit sodium intake and exercise for weight control. Continue amlodipine. Assessment & Plan (01/23/2020 12:28 PM CDT): Bp is stable/in acceptable range for any co-morbidities. Encouraged to limit sodium intake and exercise for weight control. Continue the amlodipine Hyperlipidemia associated with type 2 diabetes danisha wall 04/08/2019 Assessment & Plan (06/14/2024 12:34 AM CDT): Encouraged patient to follow low fat/low chol diet like the Mediterranean diet. Increase good fats in the diet. Increase exercise. Monitor labs as needed. Stressed importance of continued A1c control to minimize the terminal make up operator effects of diabetes. Bring accuchecks to office when instructed to do so. Check A1c about every 3-6 months. Take medication as prescribed. Get annual eye exam. Encouraged ASHA/Statin if able to tolerate. Encouraged weight control and encouraged diabetic diet and exercise. Continue with right Harden's is 14 and Farxiga 10 along with the Crestor 10. She has not been taking the Crestor regular but willing to begin as we reviewed her labs. Assessment & Plan (03/16/2024 6:52 PM CDT): Encouraged patient to follow low fat/low chol diet like the Mediterranean diet. Increase good fats in the diet. Increase exercise. Monitor labs as needed. Continue Crestor Assessment & Plan (02/15/2024 4:07 PM CDT): This is a significant, separately identifiable problem that was evaluated and managed on the same day as the wellness exam Encouraged patient to follow low fat/low chol diet like the Mediterranean diet. Increase good fats in the diet. Increase exercise. Monitor labs as needed. Labs still on are not at goal. Increase Crestor to 20 mg. May take 2 of her 10 mg tablets until they are exhausted then she will transition to 1 of the 20 mg tablets daily Assessment & Plan (09/22/2023 11:05 AM BED MAKER): Encouraged patient to follow low fat/low chol diet like the Mediterranean diet. Increase good fats in the diet. Increase exercise. Monitor labs as needed. Continue Crestor 10 daily Assessment & Plan (05/19/2023 6:02 PM CDT): Discussed the risks of elevated cholesterol levels. Encouraged patient to follow low fat/low chol diet like the Mediterranean diet. Increase good fats in the diet. Increase exercise. Monitor labs as needed. Continue statin every other day due to noted leg pain when taken every day. Assessment & Plan (12/22/2022 11:00 PM BED MAKER): Encouraged patient to follow low fat/low chol diet like the Mediterranean diet. Increase good fats in the diet. Increase exercise. Monitor labs as needed. Patient stop the statin due to leg pain Discussed trying to cut the Crestor and half to 5 mg and taking it every other day to see if she can tolerate. Advised every other day is better than none at all. So try to take as much as she can to get the benefit of the statin Assessment & Plan (09/11/2022 3:20 PM BED MAKER): Encouraged patient to follow low fat/low chol diet like the Mediterranean diet. Increase good fats in the diet. Increase exercise. Monitor labs as needed. Reviewed with patient the benefit of being on a statin as a diabetic. She is taking the Co Q10 daily already. Encouraged her to try to do Crestor twice a week, maybe on Mondays and Fridays, and see if she is able to tolerate and then slowly increase as able. She is in agreement with the plan. Reviewed the labs with her and she can see how much improvement she had with the Crestor 10 and can see the improvement in those numbers and hence the benefit. Assessment & Plan (05/26/2022 10:43 PM CDT): Encouraged patient to follow low fat/low chol diet like the Mediterranean diet. Increase good fats in the diet. Increase exercise. Monitor labs as needed. Start Crestor 10 mg 1 daily. Reviewed risks benefits alternatives side effects and proper use. Encouraged starting Co Q10 [id number] with it. Will monitor liver function Assessment & Plan (02/25/2022 12:49 AM CDT): Encouraged patient to follow low fat/low chol diet like the Mediterranean diet. Increase good fats in the diet. Increase exercise. Monitor labs as needed. Patient does not want to start a statin. Reviewed the benefits of being on a statin with diabetes will readdress again at next visit. Assessment & Plan (01/14/2022 12:50 PM CDT): Encouraged patient to follow low fat/low chol diet like the Mediterranean diet. Increase good fats in the diet. Increase exercise. Monitor labs as needed. Continue statin Assessment & Plan (04/30/2021 12:31 AM CDT): Encouraged patient to follow fat/low chol diet like the Mediterranean diet. Increase good fats in the diet. Increase exercise. Monitor labs as needed. Will benefit from a statin, but will hold until evaluated by measurement and verification engineer. Assessment & Plan (02/12/2021 9:04 AM CDT): Encouraged patient to follow fat/low chol diet like the Mediterranean diet. Increase good fats in the diet. Increase exercise. Monitor labs as needed. Will hold crestor due to elevated LFTs Assessment & Plan (10/13/2020 4:35 PM BED MAKER): Encouraged patient to follow fat/low chol diet like the Mediterranean diet. Increase good fats in the diet. Increase exercise. Monitor labs as needed. Start statin. Reviewed risks, benefit, alternatives, side effects and proper use. Start coq10 otc Assessment & Plan (07/25/2020 8:56 AM CDT): Stressed importance of continued A1c control to minimize the terminal make up operator effects of diabetes. Bring accuchecks to office when instructed to do so. Check A1c about every 3-6 months. Take medication as prescribed. Get annual eye exam. Encouraged ASHA/Statin if able to tolerate. Encouraged weight control and encouraged diabetic diet and exercise. Doing well with diet changes. Recheck labs in late Sep and . Dec Assessment & Plan (06/24/2020 10:56 AM CDT): Encouraged patient to continue low fat/low chol diet. Continue exercise. Increase good fats in the diet. Monitor labs as needed. Patient wants to continue with diet control but will discuss adding statin at next visit due to new dx DM as she is hesitant to add any medications. Assessment & Plan (07/28/2019 9:13 AM CDT): Encouraged patient to continue low fat/low chol diet. Continue exercise. Increase good fats in the diet. Monitor labs as needed. Controlled type 2 diabetes danisha wall without complication, without long-term current use of insulin ([facility]) 04/08/2019 Assessment & Plan (06/14/2024 12:34 AM CDT): Stressed importance of continued A1c control to minimize the terminal make up operator effects of diabetes. Bring accuchecks to office when instructed to do so. Check A1c about every 3-6 months. Take medication as prescribed. Get annual eye exam. Encouraged ASHA/Statin if able to tolerate. Encouraged weight control and encouraged diabetic diet and exercise. Continue right Harden's is 14 Farxiga 10 Assessment & Plan (03/16/2024 6:52 PM CDT): Stressed importance of continued A1c control to minimize the terminal make up operator effects of diabetes. Bring accuchecks to office when instructed to do so. Check A1c about every 3-6 months. Take medication as prescribed. Get annual eye exam. Encouraged ASHA/Statin if able to tolerate. Encouraged weight control and encouraged diabetic diet and exercise. Diabetes is well controlled with A1c at 6.5. Continue right Harden's is 14 and Farxiga 10 Assessment & Plan (02/15/2024 4:08 PM CDT): This is a significant, separately identifiable problem that was evaluated and managed on the same day as the wellness exam Stressed importance of continued A1c control to minimize the terminal make up operator effects of diabetes. Bring accuchecks to office when instructed to do so. Check A1c about every 3-6 months. Take medication as prescribed. Get annual eye exam. Encouraged ASHA/Statin if able to tolerate. Encouraged weight control and encouraged diabetic diet and exercise. A1c still is not at goal. Continue the Rybelsus 14mg. Discussed SGLTs. Reviewed risks benefits alternatives side effects and proper use. Start Farxiga 5 mg samples 4 weeks provided. Will send tele mg to the pharmacy and work on approval. If still too expensive will work with patient assistance. And CMP about a month after she has been on the Farxiga She states she thinks she may have a little yeast/vulvar itching so will send Diflucan 150mg one time dose and Lotrisone for prn use. Assessment & Plan (09/22/2023 11:05 AM BED MAKER): Stressed importance of continued A1c control to minimize the terminal make up operator effects of diabetes. Bring accuchecks to office when instructed to do so. Check A1c about every 3-6 months. Take medication as prescribed. Get annual eye exam. Encouraged ASHA/Statin if able to tolerate. Encouraged weight control and encouraged diabetic diet and exercise. A1c is nicely controlled at 7.4. Continue Rybelsus 14 Assessment & Plan (05/19/2023 6:02 PM CDT): Stressed importance of continued A1c control to minimize the care home effects of diabetes. This includes but is not limited to diabetic diet, exercise, and continuation of medication as prescribed. Encouraged ASHA/Statin if able to tolerate. Discussed the importance of annual diabetic eye exam and foot exams. We will continue to check A1C approximately every 3-6 months. Bring accuchecks to the office when asked to do so. Educated the that there is little to no benefit in switching to an injectable GLP-1 medication for weight loss as she is already taking Rybelsus 14 mg. Assessment & Plan (12/22/2022 11:03 PM BED MAKER): Stressed importance of continued A1c control to minimize the care home effects of diabetes. Bring accuchecks to office when instructed to do so. Check A1c about every 3-6 months. Take medication as prescribed. Get annual eye exam. Encouraged ASHA/Statin if able to tolerate. Encouraged weight control and encouraged diabetic diet and exercise. Continue with Rybelsus 14 Assessment & Plan (09/11/2022 3:21 PM BED MAKER): Stressed importance of continued A1c control to minimize the care home effects of diabetes. Bring accuchecks to office when instructed to do so. Check A1c about every 3-6 months. Take medication as prescribed. Get annual eye exam. Encouraged ASHA/Statin if able to tolerate. Encouraged weight control and encouraged diabetic diet and exercise. Continue to increase the Rybelsust from 7mg to -14mg . Recheck labs in about 3 months to see where the A1c is. Encouraged to get closer to goal of 7-8. If she has side effects she is to call. Assessment & Plan (05/26/2022 10:45 PM CDT): Stressed importance of continued A1c control to minimize the terminal make up operator effects of diabetes. Bring accuchecks to office when instructed to do so. Check A1c about every 3-6 months. Take medication as prescribed. Get annual eye exam. Encouraged ASHA/Statin if able to tolerate. Encouraged weight control and encouraged diabetic diet and exercise. A1c is much closer to goal as she is now drop 9.6 down to 8. This is on Rybelsus 3 mg for the last 3 weeks and she has stopped the metformin. Will go ahead and increase Rybelsus to 7 mg x 4 weeks then 14 for maintenance dose to recheck the A1c in about 3-4 months. Assessment & Plan (02/12/2021 9:03 AM CDT): Stressed importance of continued A1c control to minimize the care home effects of diabetes. Bring accuchecks to office when instructed to do so. Check A1c about every 3-6 months. Take medication as prescribed. Get annual eye exam. Encouraged ASHA/Statin if able to tolerate. Encouraged weight control and encouraged diabetic diet and exercise. A1c is elevated. She will work on diet. Discussed increasing the metformin from 500mg daily to bid but will hold off until the elevation of the LFTs is addressed. Assessment & Plan (10/13/2020 4:36 PM BED MAKER): Stressed importance of continued A1c control to minimize the terminal make up operator effects of diabetes. Bring accuchecks to office when instructed to do so. Check A1c about every 3-6 months. Take medication as prescribed. Get annual eye exam. Encouraged ASHA/Statin if able to tolerate. Encouraged weight control and encouraged diabetic diet and exercise. Improving. Continue metofrmin 500mg daily. Start statin and ASHA. Assessment & Plan (07/25/2020 8:56 AM CDT): Stressed importance of continued A1c control to minimize the terminal make up operator effects of diabetes. Bring accuchecks to office when instructed to do so. Check A1c about every 3-6 months. Take medication as prescribed. Get annual eye exam. Encouraged ASHA/Statin if able to tolerate. Encouraged weight control and encouraged diabetic diet and exercise. Doing well with diet changes. Recheck labs in late Sep and .u Oct Assessment & Plan (06/24/2020 10:52 AM CDT): This is a significant, separately identifiable problem that was evaluated and managed on the same day as the wellness exam New Diagnosis Diabetes. Discussed with patient at length diabetes, pathogenesis, terminal make up operator sequela, end organ damage, diet/exercise/weight loss, and medication options for treatment. Reviewed A1c, normal values, goals of treatment and need to monitor about every 90 days until well regulated. Discussed importance of annual DM eye exams. Reviewed benefits of ASHA and Statin as a diabetic. Discussed how DM affects the kidney's and ways to monitor. Reviewed increased CV risk and importance of tight control. Reviewed foot care and need to wear shoes to check feet on a regular basis to avoid care home problems. Offered referral to faculty physician. She would prefer to not start medication and just start with diet. Encouraged to start metformin and monitor closely. Disucssed GLPs and their benefits with CV protection/weight loss. Will recheck in 3 months and if still elevated will revisit again. Assessment & Plan (07/28/2019 9:16 AM CDT): Pre-diabetes is a precursor to Dm. Stressed importance of working on diet (decrease your simple sugars and one carbohydrate with each meal) and increase you exercise to achieve weight loss and this will help prevent you from progressing to diabetes. Check labs prior to next visit Abnormal TSH 04/08/2019 Assessment & Plan (01/14/2022 12:50 PM CDT): Monitor thyroid level Assessment & Plan (04/30/2021 12:31 AM CDT): Monitor labs Assessment & Plan (07/25/2020 8:55 AM CDT): Recheck labs Assessment & Plan (06/24/2020 10:46 AM CDT): Monitor labs Assessment & Plan (07/28/2019 9:12 AM CDT): Recheck labs History of colon cancer 12/18/2016 Overview (06/01/2024): Dr. Moy in [place] years ago cancer on a polyp --- Dr. Marcelino did last colonosocpy in 2018-->2023 Assessment & Plan (02/15/2024 3:57 PM CDT): Last colonoscopy in 2018. Next 1 will be in July of 2024. Will make referral to Dr. Busch's office. Resolved Problems Problem Noted Date Diagnosed Date Resolved Date Controlled type 2 diabetes m ellitus with hyperglycemia, without long-term current use of insulin 02/15/2024 02/15/2024 Obesity (BMI 30-39.9) 01/30/20242023 Memory difficulty 05/19/2023 06/14/2024 Assessment & Plan (05/19/2023 6:07 PM CDT): Memory difficulty noted on MWE. Patient does not feel her memory is impairing her activities of daily living or quality of life. Encouraged healthy lifestyle with diet, exercise, and medical compliance. Return to office if memory appears to be worsening. Nocturia 05/19/2023 06/14/2024 Assessment & Plan (05/19/2023 6:08 PM CDT): Patient describing nocturia. Discussed ways to limit her liquid intake in the evening to decrease her need to urinate throughout the night. Encouraged her to consume most of her fluids prior to 4 pm with only a glass of water with dinner. Medicare annual wellness visit, subsequent 05/19/2023 02/15/2024 Assessment & Plan (05/19/2023 10:45 PM CDT): Encouraged healthy lifestyle, good nutrition and exercise. Encouraged Calcium and Vitamin D and weight bearing exercise for bone health. Reviewed immunizations. Reviewed age appropirate screenings. Medicare Wellness Documentation is completed within the chart Annual physical exam 12/22/2022 024 Assessment & Plan (02/15/2024 4:00 PM CDT): Encouraged healthy lifestyle, good nutrition and exercise. Encouraged Calcium and Vitamin D and weight bearing exercise for bone health. Reviewed immunizations Reviewed age appropirate screenings. Assessment & Plan (12/22/2022 11:03 PM BED MAKER): Encouraged healthy lifestyle, good nutrition and exercise. Encouraged Calcium and Vitamin D and weight bearing exercise for bone health. Reviewed immunizations Reviewed age appropirate screenings. BMI 40.0-44.9, adult 12/22/2022 023 Assessment & Plan (12/22/2022 11:03 PM BED MAKER): Discussed the patient's BMI. The BMI is above average. BMI management plan is completed. BMI Follow-up includes: nutrition counseling, exercise counseling and education provided. BMI 40.0-44.9, adult 05/22/2022 022 Assessment & Plan (05/22/2022 8:49 AM CDT): Obesity is unchanged. Discussed the patient's BMI. The BMI is above average. BMI management plan is completed. BMI Follow-up includes: nutrition counseling, exercise counseling and education provided. Obesity, morbid, BMI 40.0-49.9 05/22/2022 02/15/2024 Assessment & Plan (09/22/2023 8:13 AM BED MAKER): Discussed the patient's BMI. The BMI is above average. BMI management plan is completed. BMI Follow-up includes: nutrition counseling, exercise counseling and education provided. Assessment & Plan (12/12/2022 8:38 AM BED MAKER): Discussed the patient's BMI. The BMI is above average. BMI management plan is completed. BMI Follow-up includes: nutrition counseling, exercise counseling and education provided. Assessment & Plan (09/11/2022 3:22 PM BED MAKER): Discussed the patient's BMI. The BMI is above average. BMI management plan is completed. BMI Follow-up includes: nutrition counseling, exercise counseling and education provided. Assessment & Plan (05/22/2022 8:49 AM CDT): Obesity is unchanged. Discussed the patient's BMI. The BMI is above average. BMI management plan is completed. BMI Follow-up includes: nutrition counseling, exercise counseling and education provided. BMI 40.0-44.9, adult 02/05/2022 022 Assessment & Plan (02/05/2022 9:56 AM CDT): Obesity is unchanged. Discussed the patient's BMI. The BMI is above average. BMI management plan is completed. BMI Follow-up includes: nutrition counseling, exercise counseling and education provided. Morbid obesity with BMI of 45.0-49.9, adult 02/05/2022 05/22/2022 Assessment & Plan (02/05/2022 9:56 AM CDT): Obesity is unchanged. Discussed the patient's BMI. The BMI is above average. BMI management plan is completed. BMI Follow-up includes: nutrition counseling, exercise counseling and education provided. BMI 40.0-44.9, adult 01/14/2022 022 Assessment & Plan (01/14/2022 10:01 AM CDT): Obesity is unchanged. Discussed the patient's BMI. The BMI is above average. BMI management plan is completed. BMI Follow-up includes: nutrition counseling, exercise counseling and education provided. Morbid obesity with BMI of 45.0-49.9, adult 01/14/2022 02/05/2022 Assessment & Plan (01/14/2022 10:01 AM CDT): Obesity is unchanged. Discussed the patient's BMI. The BMI is above average. BMI management plan is completed. BMI Follow-up includes: nutrition counseling, exercise counseling and education provided. Diabetes mellitus due to und erlying condition with hyperglycemia, without long-term current use of insulin ([facility]) ([facility]) 01/14/2022 Assessment & Plan (02/25/2022 12:50 AM CDT): Stressed importance of continued A1c control to minimize the terminal make up operator effects of diabetes. Bring accuchecks to office when instructed to do so. Check A1c about every 3-6 months. Take medication as prescribed. Get annual eye exam. Encouraged ASHA/Statin if able to tolerate. Encouraged weight control and encouraged diabetic diet and exercise. A1c is not at goal. Discussed treatment options to add to the metformin as she does not think she can maximize it due to GI side effects. Discussed SG LT verses G LP versus other medications. Reviewed risks benefits, alternatives, side effects and proper use. Will start right Harden's cyst 3 mg x 4 weeks then increase to 7 mg with the goal to increase to 14 as tolerated. Assessment & Plan (01/14/2022 12:51 PM CDT): Stressed importance of continued A1c control to minimize the terminal make up operator effects of diabetes. Bring accuchecks to office when instructed to do so. Check A1c about every 3-6 months. Take medication as prescribed. Get annual eye exam. Encouraged ASHA/Statin if able to tolerate. Encouraged weight control and encouraged diabetic diet and exercise. Continue metformin Medicare annual wellness visit, subsequent 01/14/2022 05/21/2022 Assessment & Plan (01/14/2022 12:52 PM CDT): Encouraged healthy lifestyle, good nutrition and exercise. Encouraged Calcium and Vitamin D and weight bearing exercise for bone health. Reviewed immunizations. Reviewed age appropirate screenings. Medicare Wellness Documentation is completed within the chart Urinary urgency 01/14/2022 06/14/2024 Assessment & Plan (01/14/2022 12:52 PM CDT): This is a significant, separately identifiable problem that was evaluated and managed on the same day as the wellness exam Patient has had increased urgency over the last few weeks and is up 3 times in the night. Will check urinalysis and urine culture to rule out UTI. If negative may consider OAP medication versus referral to Urology. Vulvar irritation 01/14/2022 06/14/2024 Assessment & Plan (01/14/2022 12:55 PM CDT): This is a significant, separately identifiable problem that was evaluated and managed on the same day as the wellness exam Patient has been wearing a pad an and has urine loss which is causing vulvar irritation. Will rule out UTI with urine culture and try to get her out of these pads. Lotrisone to the area as needed with a barrier cream in between. Advised to try to avoid using pads paining liners. If symptoms persist and do not resolve will need to do an exam to rule out any other additional Foeller irritation causes. She voices understanding Diabetes mellitus due to und erlying condition without complication, without long-term current use of insulin ([facility]) 04/30/2021 022 Assessment & Plan (01/14/2022 12:51 PM CDT): Stressed importance of continued A1c control to minimize the care home effects of diabetes. Bring accuchecks to office when instructed to do so. Check A1c about every 3-6 months. Take medication as prescribed. Get annual eye exam. Encouraged ASHA/Statin if able to tolerate. Encouraged weight control and encouraged diabetic diet and exercise. Continue metformin 500 mg b.i.d. Assessment & Plan (04/30/2021 12:35 AM CDT): Stressed importance of continued A1c control to minimize the care home effects of diabetes. Bring accuchecks to office when instructed to do so. Check A1c about every 3-6 months. Take medication as prescribed. Get annual eye exam. Encouraged ASHA/Statin if able to tolerate. Encouraged weight control and encouraged diabetic diet and exercise. Not at goal. Continue metformin and recheck labs in May. If still elevated, will need to add another medication. Morbid obesity with BMI of 4 5.0-49.9, adult ([facility]) 04/18/2021 01/14/2022 Assessment & Plan (04/18/2021 7:59 AM CDT): Obesity is unchanged. Discussed the patient's BMI. The BMI is above average. BMI management plan is completed. BMI Follow-up includes: nutrition counseling, exercise counseling and education provided. Urinary tract infection with hematuria 02/25/2021 02/15/2024 Assessment & Plan (02/25/2021 9:22 AM CDT): Check urine/culture Morbid obesity with BMI of 45.0-49.9, adult 02/12/2021 04/18/2021 Assessment & Plan (02/12/2021 7:59 AM CDT): Obesity is unchanged. Discussed the patient's BMI. The BMI is above average. BMI management plan is completed. BMI Follow-up includes: nutrition counseling, exercise counseling and education provided. Intractable vomiting 02/06/2021 021 Assessment & Plan (02/06/2021 12:20 PM CDT): Will evaluate with labs and US - nurse will help her schedule the US She was advised to report to er if worsening Has f/u appt with pcp next week, will keep that appt but contact office in interim if needing assistance Fatigue 09/11/2020 06/14/2024 Assessment & Plan (09/22/2023 11:05 AM BED MAKER): Probably multifactorial. Check labs and followup to re-evaluate Assessment & Plan (05/19/2023 6:02 PM CDT): Fatigue is likely multifactorial. We will evaluate labs for any underlying abnormalities that the fatigue may be attributed to. Assessment & Plan (09/11/2022 3:22 PM BED MAKER): Probably multifactorial. Check labs and followup to re-evaluate Assessment & Plan (05/26/2022 10:45 PM CDT): Probably multifactorial. Check labs and followup to re-evaluate Assessment & Plan (01/14/2022 12:51 PM CDT): Probably multifactorial. Check labs and followup to re-evaluate Assessment & Plan (04/30/2021 12:35 AM CDT): Probably multifactorial. Check labs and followup to re-evaluate Assessment & Plan (02/12/2021 9:04 AM CDT): Probably multifactorial. Check labs and followup to re-evaluate Assessment & Plan (02/06/2021 12:20 PM CDT): Will evaluate with labs and US - nurse will help her schedule the US She was advised to report to er if worsening Has f/u appt with pcp next week, will keep that appt but contact office in interim if needing assistance Assessment & Plan (10/13/2020 4:35 PM BED MAKER): Probably multifactorial. Check labs and followup to re-evaluate Assessment & Plan (09/11/2020 9:42 AM BED MAKER): We discussed with the severity and abrupt onset of the fatigue that a covid 19 test is warranted to exclude the virus. She was given info about [facility] and will report there today for test. Will hold lab order at [facility] - if covid 19 test is negative, she will pursue these further but will await call from office regarding results first. She will report to the er in the interim if worsening. She is going to cancel chiropractic and dental appts at this time. Body mass index (BMI) 45.0-49.9, adult 07/25/2020 10/13/2020 Assessment & Plan (07/25/2020 8:18 AM CDT): Obesity is unchanged. Discussed the patient's BMI. The BMI is above average. BMI management plan is completed. BMI Follow-up includes: nutrition counseling, exercise counseling and education provided. Skin lesion of face 07/25/2020 06/14/20 24 Assessment & Plan (07/25/2020 8:55 AM CDT): Refer to Derm for full skin exam/evaluation face lesions Frequency of urination 06/24/202002/12 Assessment & Plan (06/24/2020 10:53 AM CDT): Check urine culture to rule out infection. May be secondary to DM Medicare annual wellness visit, subsequent 06/24/2020 07/25/2020 Assessment & Plan (06/24/2020 10:48 AM CDT): Encouraged healthy lifestyle, good nutrition and exercise. Encouraged Calcium and Vitamin D and weight bearing exercise for bone health. Reviewed immunizations. Reviewed age appropirate screenings. Medicare Wellness Documentation is completed within the chart Urinary frequency 06/21/2020 06/24/2020 Assessment & Plan (06/24/2020 10:47 AM CDT): Check urine culture to rule out infection. Upper respiratory infection with cough and congestion 01/23/2020 06/20/2020 Assessment & Plan (01/23/2020 12:30 PM CDT): Complete antibiotic. Continue antihistamine (Claritin OR Zyrtec), Mucinex 12hour and Steroid nasal spray (Flonase). Push fluids. Rest. Supportive care. If sxs worsen or don\'t improve, pt is to followup in the office. Breast cancer screening 07/28/201906/03 Influenza vaccine refused 07/28/2019 Assessment & Plan (10/13/2020 4:35 PM BED MAKER): Encouraged vaccine. Reviewed risks/ benefits. Patient refuses and accepts risks. Assessment & Plan (07/25/2020 8:56 AM CDT): Encouraged vaccine. Reviewed risks/ benefits. Patient refuses and accepts risks. Assessment & Plan (07/28/2019 9:16 AM CDT): Encourage but patient refused Thumb pain, left 04/25/2019 06/24/2020 Assessment & Plan (07/28/2019 9:12 AM CDT): Resolved with decrease in repetitive activity. May continue with anti- inflammatory as needed. Assessment & Plan (04/25/2019 10:43 PM CDT): Appears to be overuse---continue NSAID/ice. Refer to Hand as she wants to be able to continue to do/complete her knitting project. Morbid obesity 04/08/2019 07/25/2020 Assessment & Plan (06/24/2020 10:45 AM CDT): Obesity is unchanged. Discussed the patient's BMI. The BMI is above average. BMI management plan is completed. BMI Follow-up includes: nutrition counseling, exercise counseling and education provided. Assessment & Plan (11/17/2019 4:03 PM BED MAKER): Obesity is unchanged. Discussed the patient's BMI. The BMI is above average. BMI management plan is completed. BMI Follow-up includes: nutrition counseling, exercise counseling and education provided. Assessment & Plan (07/28/2019 8:41 AM CDT): Obesity is unchanged. Discussed the patient's BMI. The BMI is above average. BMI management plan is completed. BMI Follow-up includes: nutrition counseling, exercise counseling and education provided. Assessment & Plan (04/08/2019 10:40 AM CDT): Obesity is unchanged. Discussed the patient's BMI. The BMI is above average; BMI management plan is completed. General weight loss/lifestyle modification strategies discussed (elicit support from others; identify saboteurs; non-food rewards, etc). Encouraged increased exercise. Hyperlipidemia 01/12/2018 10/11/2020 BMI 45.0-49.9, adult 12/18/2016 021 Assessment & Plan (10/13/2020 4:34 PM BED MAKER): Obesity is unchanged. Discussed the patient's BMI. The BMI is above average. BMI management plan is completed. BMI Follow-up includes: nutrition counseling, exercise counseling and education provided. Assessment & Plan (07/25/2020 8:55 AM CDT): Obesity is improved. Discussed the patient's BMI. The BMI is above average. BMI management plan is completed. BMI Follow-up includes: nutrition counseling, exercise counseling and education provided. Assessment & Plan (06/24/2020 10:45 AM CDT): Obesity is unchanged. Discussed the patient's BMI. The BMI is above average. BMI management plan is completed. BMI Follow-up includes: nutrition counseling, exercise counseling and education provided. Assessment & Plan (11/17/2019 4:02 PM BED MAKER): Obesity is unchanged. Discussed the patient's BMI. The BMI is above average. BMI management plan is completed. BMI Follow-up includes: nutrition counseling, exercise counseling and education provided. Assessment & Plan (07/28/2019 8:41 AM CDT): Obesity is unchanged. Discussed the patient's BMI. The BMI is above average. BMI management plan is completed. BMI Follow-up includes: nutrition counseling, exercise counseling and education provided. Assessment & Plan (04/08/2019 10:40 AM CDT): Obesity is unchanged. Discussed the patient's BMI. The BMI is above average; BMI management plan is completed. General weight loss/lifestyle modification strategies discussed (elicit support from others; identify saboteurs; non-food rewards, etc). Encouraged increased exercise. Encounters Date Type Department Care Team Description 10/26/2024 Orders Only [address] [phone] Marah Jonas PA 10/19/[address] [phone] Marah Jonas PA needs lab prior to 11/09 visit 10/12/2024 Orders Only [address] [id number] Marah Jonas PA Hypertension associated with diabetes (HCC) (Primary Dx); Abnormal TSH; Fatigue, unspecified type 10/12/[address] [phone] Marah Jonas PA Medical Question/Miscellaneous 09/09/[address] [phone] Marah Jonas PA Medical Question/Miscellaneous from Last 3 Months Immunizations Name Administration Dates Next Due Influenza, Unspecified 11/03/2023(Deferr ed: Patient Refused),11/03/2023(Deferred: Patient Refused),09/22/2023(Deferred: Patient Refused),12/12/2022(Deferred: Patient Refused),11/03/2022(Deferred: Patient Refused),01/14/2022(Deferred: Patient Refused),11/03/2021(Deferred: Patient Refused),11/03/2020(Deferred: Patient Refused),07/25/2020(Deferred: Patient Refused),10/03/2019(Deferred: Patient Refused),08/03/2018(Deferred: Patient Refused) Pneumococcal Conjugate PCV 13 01/12/2019 Pneumococcal Polysaccharide PPV23 01/25/2008 Tdap 12/19/2010 Surgical History Surgery Date Site/Laterality Comments SECTION CHOLECYSTECTOMY HYSTERECTOMY Medical History Medical History Date Comments Hypertension Family History Medical History Relation Name Comments Diabetes Father Heart disease Father Neuropathy Father COPD Mother Relation Name Status Comments Father Mother Social History Tobacco Use Types Packs/Day Years [...] on file Legal Sex Female 6:23 PM BED MAKER Gender Identity Not on file Sexual Orientation Not on file Occupation Industry Job Start Date Job End Date Retired Not on file Not on file Not on file Obstetrics History Last Filed Vital Signs Vital Sign Reading [...] Mass Index 40.1 07/07/2024 8:40 AM CDT Plan of Treatment Health Maintenance Due Date Last Done Comments Foot Exam 1945 Hepatitis B Screening 1965 Zoster Vaccine (1 of 2) 1997 Pneumococcal vaccine 65+ (3 of 3 - PPSV23 or PCV20) 01/13/2020 01/12/2019, 01/25/2008 DTaP/Tdap/Td Vaccine (2 - Td or Tdap) 12/19/2020 12/19/2010 Influenza Vaccine (#1) 2024 Dilated Eye Exam 04/23/2025 04/23/2024, , 02/06/2022, Additional history exists Hemoglobin A1C 04/23/2025 10/23/2024, 05/04, 01/23/2024, Additional history exists Depression Screening 06/01/2025 06/01/2024, 03/12/2024, 01/30/2024, Additional history exists Fall Risk Assessment 06/01/2025 06/01/2024, 01/30/2024, 09/22/2023, Additional history exists Well Visit 65+ 06/01/2025 06/01/2024, 01/02, 05/19/2023, Additional history exists Osteoporosis Screening-Bone Density Scan 08/07/2025 08/07/2022, 10/28/2018 Breast Cancer Screening-Mammogram 10/20/2025 10/20/2024, 10/18/2023, 08/07/2022, Additional history exists Albumin Creatinine Ratio, Urine 10/23/2025 10/23/2024, 01/23/2024, 12/09/2022, Additional history exists Lipid Panel 10/23/2025 10/23/2024, 05/04, 01/23/2024, Additional history exists eGFR 10/23/2025 10/23/2024, 05/04, 03/06/2024, Additional history exists Colon Cancer Screening-FIT 11/16/2025 11/16/2024, Colon Cancer Screening-FOBT 11/16/2025 11/16/2024, 0 07/22/2019 Colon Cancer Screening-Colonoscopy 11/16/20272024, 07/22/2019 Colon Cancer Screening-DNA Stool 11/16/2027 11/16/19 25, 07/22/2019 Colorectal Cancer Screening 11/16/2027 Colon Cancer Screening-CT Colonography 11/16/2029 11/16/2024, 07/22/2019 Colon Cancer Screening-Sigmoidoscopy 11/16/2029 11/16/2024, 07/22/2019 Hepatitis C Screening Completed 02/26/2021, 021 Procedures Procedure Name Priority Date/Time Associated Diagnosis Comments HM COLONOSCOPY Routine 11/16/2024 10:02 AM BED MAKER URINE CULTURE Routine 10/23/2024 10:12 AM BED MAKER Dysuria VITAMIN B12 Routine 10/23/2024 10:11 AM BED MAKER Hypertension associated with diabetes (HCC) TSH Routine 10/23/2024 10:11 AM BED MAKER Fatigue, unspecified type LIPID PANEL Routine 10/23/2024 10:11 AM BED MAKER Hypertension associated with diabetes (HCC) HEMOGLOBIN A1C Routine 10/23/2024 10:11 AM BED MAKER Hypertension associated with diabetes (HCC) COMPREHENSIVE METABOLIC PANEL Routine 10/23/2024 10:11 AM BED MAKER Hypertension associated with diabetes (HCC) CBC WITH AUTO DIFFERENTIAL Routine 10/23/2024 10:11 AM BED MAKER Hypertension associated with diabetes (HCC) ALBUMIN CREATININE RATIO, URINE Routine 10/23/2024 10:11 AM BED MAKER Hypertension associated with diabetes (HCC) SCREENING MAMMOGRAM BILATERAL W JACQUES Schedule Routine, Read Routine (OP Routine) 10/20/2024 1:07 PM BED MAKER Breast cancer screening by mammogram DIABETES EYE EXAM Routine 04/23/2024 1:47 PM CDT DEXA AXIAL SKELETON BONE DENSITY 1 OR MORE SITES Schedule Routine, Read Routine (OP Routine) 08/07/2022 Menopause HEPATITIS PANEL, ACUTE Routine 02/26/2021 8:07 AM CDT from Last 3 Months or Most Recently Relevant to Health Maintenance Results * (ABNORMAL) COLONOSCOPY (11/16/2024 10:02 AM BED MAKER) Scribed Colonoscopy Abnormal Historical Provider MD HEALTH MAINTENANCE Final Result * Urine culture Urine, clean voided (10/23/2024 10:12 AM BED MAKER) Urine culture Final report [facility] - 01 Result 1 Comment [facility] - 01 Comment: Mixed urogenital sid 10,000-25,000 colony forming units per mL Urine, clean voided 10/23/2024 10:12 AM BED MAKER 10/23/2024 Comment:UC Narrative [facility] - 10/25/2024 7:35 AM BED MAKER Performed at: ??01 - [facility] [address] ??[id number] Genetics Physician: Enrique Dunne PhD, Phone: ??[phone] Mar[facility] WEL[facility] LAB MICROBIOLOGY - GENERAL ORDERABLES Final Result [facility] - 01 * (ABNORMAL) CBC with auto differential (10/23/2024 10:11 AM BED MAKER) WBC 10.2 3.4 - 10.8 x10E3/uL [facility] - 01 RBC 5.27 3.77 - 5.28 x10E6/uL [facility] - 01 Hgb 15.4 11.1 - 15.9 g/dL [facility] - 01 Hct 46.6 34.0 - 46.6 % [facility] - 01 MCV 88 79 - 97 fL [facility] - 01 MCH 29.2 26.6 - 33.0 pg [facility] - 01 MCHC 33.0 31.5 - 35.7 g/dL [facility] - 01 Rdw 12.8 11.7 - 15.4 % [facility] - 01 Platelets 279 150 - 450 x10E3/uL [facility] - 01 Neutrophils pct 51 Not Estab. % [facility] - 01 Lymphs pct 38 Not Estab. % [facility] - 01 Monocytes pct 9 Not Estab. % [facility] - 01 Eosinophils pct 1 Not Estab. % [facility] - 01 Basophil pct 1 Not Estab. % [facility] - 01 Neutrophil abs 5.2 1.4 - 7.0 x10E3/uL [facility] - 01 Lymphs (Absolute) 3.8(H) 0.7 - 3.1 x10E3/uL [facility] - 01 Monocyte abs 0.9 0.1 - 0.9 x10E3/uL [facility] - 01 Eosinophils, abs 0.1 0.0 - 0.4 x10E3/uL [facility] - 01 Basophils, abs 0.1 0.0 - 0.2 x10E3/uL [facility] - 01 Immature Granulocytes 0 Not Estab. % [facility] - 01 Immature Grans (Abs) 0.0 0.0 - 0.1 x10E3/uL [facility] - 01 Blood 10/23/2024 10:1 1 AM BED MAKER 10/23/2024 Narrative [facility] - 10/24/2024 7:35 AM BED MAKER Performed at: ??01 - [facility] [address], [place], [place] ??[id number] Genetics Physician: Enrique Dunne PhD, Phone: ??[phone] us Marah WELCH LAB BLOOD ORDERABLES Final Result Performing Organization Address [facility] [address]/[facility] de Phone Number [facility] - * Albumin Creatinine Ratio, Urine (10/23/2024 10:11 AM BED MAKER) Creatinine ur 105.5 Not Estab. mg/dL [facility] - 01 Microalbumin, ur 12.3 Not Estab. ug/mL [facility] - 01 Microalbumin/cre at ratio 12 0 - 29 mg/g creat [facility] - 01 Comment: ? Normal: ?0 - ??29 ? Moderately increased: 30 - 300 ? Severely increased: ? >300 Urine 10/23/2024 10:1 1 AM BED MAKER 10/23/2024 Narrative [facility] - 10/26/2024 7:36 AM BED MAKER Performed at: ?? - [facility] ??[id number] Genetics Physician: Enrique Dunne PhD, Phone: ??[phone] us Marah WELCH LAB URINE ORDERABLES Final Result Performing Organization Address [facility] [address]/[facility] de Phone Number [facility] - * TSH (10/23/2024 10:11 AM BED MAKER) TSH 2.500 0.450 - 4.500 uIU/mL [facility] - 01 Blood 10/23/2024 10:1 1 AM BED MAKER 10/23/2024 Narrative [facility] - 10/24/2024 9:35 AM BED MAKER Performed at: ??01 - [facility] ??[id number] Genetics Physician: Enrique Dunne PhD, Phone: ??[phone] Marah WELCH LAB BLOOD ORDERABLES Final Result Performing Organization Address [facility] [address]/[facility] de Phone Number [facility] - * (ABNORMAL) Hemoglobin A1c (10/23/2024 10:11 AM BED MAKER) Pathologist [facility] Hgb A1C 7.1(H) 4.8 - 5.6 % [facility] - Comment: ? Prediabetes: 5.7 - 6.4 ? Diabetes: >6.4 ? Glycemic control for adults with diabetes: <7.0 Blood 10/23/2024 10:1 1 AM BED MAKER 10/23/2024 Narrative [facility] - 10/24/2024 7:35 AM BED MAKER Performed at: ??01 - [facility] ??[id number] Genetics Physician: Enrique Dunne PhD, Phone: ??[phone] Marah WELCH LAB BLOOD ORDERABLES Final Result Performing Organization Address [facility] de Phone Number [facility] - * Vitamin B12 (10/23/2024 10:11 AM BED MAKER) [facility] Vitamin B12 304 232 - 1,245 pg/mL [facility] - Blood 10/23/2024 10:1 1 AM BED MAKER 10/23/2024 Narrative [facility] - 10/24/2024 7:35 AM BED MAKER Performed at: ??01 - [facility] ??[id number] Genetics Physician: Enrique Dunne PhD, Phone: ??[phone] Marah WELCH LAB BLOOD ORDERABLES Final Result Performing Organization Address [facility] [address]/[facility] de Phone Number [facility] - 01 * (ABNORMAL) Lipid panel (10/23/2024 10:11 AM BED MAKER) Cholesterol 221(H) 100 - 199 mg/dL [facility] - 01 Triglycerides 159(H) 0 - 149 mg/dL [facility] - 01 HDL Cholesterol 41 >39 mg/dL [facility] - 01 VLDL 29 5 - 40 mg/dL [facility] - 01 LDL, calculated 151(H) 0 - 99 mg/dL [facility] - 01 Blood 10/23/2024 10:1 1 AM BED MAKER 10/23/2024 Narrative [facility] - 10/24/2024 9:35 AM BED MAKER Performed at: ?? - [facility] [address] ??[id number] Genetics Physician: Enrique Dunne PhD, Phone: ??[phone] Marah WELCH LAB BLOOD ORDERABLES Final Result [facility] - 01 * (ABNORMAL) Comprehensive metabolic panel (10/23/2024 10:11 AM BED MAKER) Glucose 138(H) 70 - 99 mg/dL [facility] - 01 BUN 15 8 - 27 mg/dL [facility] - 01 Creatinine, Serum 0.74 0.57 - 1.00 mg/dL [facility] - 01 eGFR 83 >59 mL/min/1.7 3 [facility] - 01 BUN/creat ratio 20 12 - 28 [facility] - 01 Sodium 138 134 - 144 mmol/L [facility] - 01 Potassium, sr 5.2 3.5 - 5.2 mmol/L [facility] - 01 Chloride 99 96 - 106 mmol/L [facility] - 01 CO2 23 20 - 29 mmol/L [facility] - 01 Calcium 9.9 8.7 - 10.3 mg/dL [facility] - 01 Protein, sr 6.8 6.0 - 8.5 g/dL [facility] - 01 Albumin 4.5 3.8 - 4.8 g/dL [facility] - 01 Globulin, Total 2.3 1.5 - 4.5 g/dL [facility] - 01 Bilirubin, Total 0.7 0.0 - 1.2 mg/dL [facility] - 01 Alk phos 109 44 - 121 IU/L [facility] - 01 AST 18 0 - 40 IU/L [facility] - 01 ALT 18 0 - 32 IU/L [facility] - 01 Blood 10/23/2024 10:1 1 AM BED MAKER 10/23/2024 Narrative [facility] - 10/24/2024 9:35 AM BED MAKER Performed at: ??01 - [facility] [address] ??[id number] Genetics Physician: Enrique Dunne PhD, Phone: ??[phone] Marah WELCH LAB BLOOD ORDERABLES Final Result [facility] - 01 * Screening Mammogram Bilateral W Jacques (10/20/2024 1:07 PM BED MAKER) Anatomical Region Laterality Modality Breast Bilateral Mammography Marah WELCH IMG MAMMO PROCEDURES Final Result * DIABETES EYE EXAM (04/23/2024 1:47 PM CDT) Pathologist [facility] SCRIBED DIABETIC DILATED EYE EXAM Normal Historical Provider HEALTH MAINTENANCE Edited Result - Final * Dexa Axial Skeleton Bone Density 1 or 2 Site (08/07/2022) Anatomical Region Laterality Modality Body N/A Radiographic Kelin ging Marah WELCH IMG DXA PROCEDURES Final R esult * Hepatitis panel, acute (02/26/2021 8:07 AM CDT) Hep A IgM NON-REACTI VE NON-REACT LENNY [facility] Comment: For additional information, please refer to http://education.VoxPopMe.DesignFace IT/faq/OMC901 (This link is being provided for informational/ educational purposes only.) HepBsAg NON-REACTI VE NON-REACT LENNY [facility] Hep B core IgM NON-REACTI VE NON-REACT LENNY [facility] Hep C Ab NON-REACTI VE NON-REACT LENNY [facility] SIGNAL TO CUT-OFF 0.01 <1.00 [facility] Comment: HCV antibody was non-reactive. There is no laboratory evidence of HCV infection. In most cases, no further action is required. However, if recent HCV exposure is suspected, a test for HCV RNA (test code 97665) is suggested. For additional information please refer to http://education.Brandark/faq/VQE36z1 (This link is being provided for informational/ educational purposes only.) 02/26/2021 8:07 AM CDT 02/26/2021 8:11 AM CDT Marah WELCH LAB MICROBIOLOGY - GENERAL ORDERABLES Final Result [facility] [address] [place] [address] from Last 3 Months or Most Recently Relevant to Health Maintenance Insurance [facility] MEDICARE [facility] Address: [address] [address] [place] [address] [employer] Care Teams Service Rig Operator Relationship Specialty Start Date End Date Marah Jonas PA [address] [place] [address] PCP - General Internal Medicine 04/05/19
--- OUTSIDE RECORDS SUMMARY | 2024-11-23 05:13 | XMS_ITS | Encounter Summary ---
Author Organization [facility] Healthcare Address [address] [place] [address] Care Team Providers Care Plant Assigner Name Role Phone Marah Jonas Primary Care Provider [phone] Reason for Visit * Reason Onset Date Comments Medical Question/Miscellaneous 09/09/2024 Encounter Details Date Type Department Care Team (Late st Contact Info) Description 09/09/2024 Telephone [facility] Family Medicine [address] [facility] [address] [place] [address] Marah Jonas PA [address] [place] [address] Medical Question/Miscellaneous Social History Tobacco [...] on file Legal Sex Female 6:23 PM STRUCTURAL ENGINEERING TECHNICIAN Gender Identity Not on file Sexual Orientation Not on file Occupation Industry Job Start Date Job End Date Retired Not on file Not on file Not on file documented as of this encounter Miscellaneous Notes * Telephone Encounter - Cici Walker LPN - 09/09/2024 11:36 AM STRUCTURAL ENGINEERING TECHNICIAN Noted. Will update paperwork. CTURAL ENGINEERING TECHNICIAN * Telephone Encounter - Martell Garcia - 09/09/2024 11:31 AM CST Medical Question/Miscellaneous Caller? s Concern: Patient stated she was just in the office and signed a paper for the [employer] program. She said the office told her to call back with the amount from [employer] lastyear for her [employer] because they needed that for the paper work. She said that amount is [phone]. Does message need to be routed? Yes-Action Needed CTURAL ENGINEERING TECHNICIAN documented in this encounter Plan of Treatment Not on file documented as of this encounter Visit Diagnoses Not on filedocumented in this encounter Care Teams Plant Assigner Relationship Specialty Start Date End Date Marah Jonas PA [address] [facility] [address] [place] [address] PCP - General Internal Medicine 04/05/19 documented as of this encounter
--- OUTSIDE RECORDS SUMMARY | 2024-11-23 05:13 | XMS_ITS | Encounter Summary ---
Author Organization Formerly [facility] Address [address] [place] [address] Care Team Providers Care Crna Name Role Phone Marah Jonas Primary Care Provider [phone]- [phone] Reason for Referral * Consultation (Routine) - Closed Specialty Diagnoses / Procedures Referred By Contnestor navarro Referred To Contact Gastroenterology Diagnoses Colon cancer screening Marah Jonas PA [address] [place] [address] Phone: tel: fax: Chung Hernandez MD [address] [place] [address] Phone: tel: fax: Referral ID Status Reason Start Date Expiration Date V isits Requested Visits Authorized [id number] Closed Specialty Services Required 06/01/2024 07/01/2025 1 1 Question Answer Please select the performing region: External Order [[id number]] To provider: CHUNG HERNANDEZ [[id number]] # of visits: 1 Comments Colonoscopy -Dr Marcelino 2018 --->07/2024 (history polyps and colon cancer) * Diagnostic Imaging (Routine) - Closed Specialty Diagnoses / Procedures Referred By Contac t Referred To Contact Diagnoses Breast cancer screening by mammogram Procedures Screening Mammogram Bilateral [place] Marah Jonas PA [address] [place] [address] Phone: tel: fax: [facility] [address] [facility] [address] [place] [address] Phone: tel: fax: Referral ID Status Reason Start Date Expiration Date Visits Re quested Visits Authorized [id number] Closed 06/01/2024 07/01/2025 1 1 Reason for Visit * Reason Comments Medicare Wellness Pt would like to dis cuss excessive urination. And the sudden on set of body odor pt states she has never had an issue before. Encounter Details Date Type Department Care Team (Late st Contact Info) Description 06/01/2024 8:00 AM CDT Office Visit [facility] [address] [facility] [address] [place] [phone] Marah Jonas PA [address] [place] [address] [address] [place] [address] Medicare annual wellness visit, subsequent (Primary Dx); Dysuria; Hyperlipidemia associated with type 2 diabetes mellitus (HCC); Controlled type 2 diabetes mellitus without complication, without long-term current use of insulin (CMS/HCC) (HCC); Hypertension associated with diabetes (HCC); Colon cancer screening; Breast cancer screening by mammogram; Morbid obesity (HCC); BMI 40.0-44.9, adult (HCC) Social History [...] on file Legal Sex Female 6:23 PM ETHICS MANAGER Gender Identity Not on file Sexual Orientation Not on file Occupation Industry Job Start Date Job End Date Retired Not on file Not on file Not on file documented as of this encounter Last Filed Vital Signs Vital Sign Reading Time Taken Comments Blood Pressure 118/78 06/01/2024 8:05 AM CDT Pulse 75 06/01/2024 8:05 AM CDT Temperature 37.1 ??C (98.8 ??F) 06/01/2024 8:05 AM CD T Respiratory Rate - - Oxygen Saturation 97% 06/01/2024 8:05 AM CDT Inhaled Oxygen Concentration - - Weight 109.8 kg (242 lb) 06/01/2024 8:05 AM CDT Height 161.3 cm (5' 3.5 ) 06/01/2024 8:05 AM CDT Body Mass Index 42.2 06/01/2024 8:05 AM CDT documented in this encounter Ordered Prescriptions Prescription Sig Dispense Quantity Refills Last Filled Start Date End Date nitrofurantoin monohydrate (MACROBID) 100 mg capsule Take 1 capsule (100 mg total) by mouth 2 (two) times a day for 5 days 10 capsule 06/01/2024 documented in this encounter Progress Notes * Marah Jonas PA - 06/01/2024 8:00 AM CDT Images from the original note were not included. Annual Medicare Wellness Visit Mandy Oconnor is a 79 y.o.female Chief Complaint: Medicare Wellness (Pt would like to discuss excessive urination. And the sudden on set of body odorpt states she has never had an issue before. ) HPI: Patient presents for MWE and followup chronic concerns. Complains of urgency --when she gets up to go-- she can't get to the bathroom Denies loss with cough and sneeze Hasn't had a UA\culture Using Lotrisone as has skin irritation with farxiga/urine loss HTN - Lisinopril 2.5 and Amlodipine 10 HLD - Crestor 10 -- not taking regular so lipids are up DM - Cony 14--tolerating well (using patient assistance) Farxiga 10mg (using patient assistance) A1c 05/2024 - 7.5 09/2023 was 7.4 01/22/2023 -- 8.3 Pneumonia 13 and 23 are done Tdap 2010 DM eye 04/2024 Mamm 10/2023 [facility] DXA 08/2022 Spine (0.0) Left Hip (-0.1) Colonoscopy -Dr Marcelino 2018 --->07/2024 (history polyps and colon cancer) Review of Systems See HPI Recent Results (from the past 1008 hour(s)) Hemoglobin A1c Collection Time: 05/27/24 9:55 AM Result Value Ref Range Hgb A1C 7.5 (H) 4.8 - 5.6 % Comprehensive metabolic panel Collection Time: 05/27/24 9:55 AM Result Value Ref Range Glucose 135 (H) 70 - 99 mg/dL BUN 15 8 - 27 mg/dL Creatinine, Serum 0.69 0.57 - 1.00 mg/dL eGFR 89 >59 mL/min/1.73 BUN/creat ratio 22 12 - 28 Sodium 140 134 - 144 mmol/L Potassium, sr 5.1 3.5 - 5.2 mmol/L Chloride 101 96 - 106 mmol/L CO2 23 20 - 29 mmol/L Calcium 9.8 8.7 - 10.3 mg/dL Protein, sr 6.8 6.0 - 8.5 g/dL Albumin 4.4 3.8 - 4.8 g/dL Globulin, Total 2.4 1.5 - 4.5 g/dL Bilirubin, Total 0.7 0.0 - 1.2 mg/dL Alk phos 96 44 - 121 IU/L AST 16 0 - 40 IU/L ALT 17 0 - 32 IU/L Lipid panel Collection Time: 05/27/24 9:55 AM Result Value Ref Range Cholesterol 218 (H) 100 - 199 mg/dL Triglycerides 186 (H) 0 - 149 mg/dL HDL Cholesterol 37 (L) >39 mg/dL VLDL 34 5 - 40 mg/dL LDL, calculated 147 (H) 0 - 99 mg/dL POCT urinalysis dipstick Collection Time: 06/01/24 8:47 AM Result Value Ref Range Color, Urine, POC Dark Shanon Clarity, ur, POC Cloudy (A) Clear Glucose, ur, POC 1000. (A) Negative MG/DL Bilirubin, ur, POC Negative Negative, Small, Moderate, Large Ketones, ur, POC Negative Negative Specific Foley, POC 1.020 1.003 - 1.030 Blood, ur, POC Trace (A) Negative pH, ur, POC 5.5 5.0 - 8.0 Protein, ur, POC Negative Negative Urobilinogen, urine, POC 0.2 0.2 - 1.0 mg/dL Nitrite, ur, POC Positive (A) Negative Leukocytes, ur, POC Trace (A) Negative Lot Number [id number] Vitals: Vitals BP 118/78 (BP Location: Right arm, Patient Position: Sitting) Pulse 75 Temp 37.1 ??C (98.8 ??F) (Oral) Ht 161.3 cm (5' 3.5 ) Wt 109.8 kg (242 lb) SpO2 97% BMI 42.20 kg/m?? Body mass index is 42.2 kg/m??. Exam: Physical Exam Physical Exam Vitals and nursing note reviewed. [...] and oriented to person, place, and time. Care Team Providers: Patient Care Team: Marah Jonas PA as PCP - General (Internal Medicine) Primary Pharmacy/DME suppliers: [address] - [address] [facility] [address] Problem List, Past Medical and Surgical History: Patient Active Problem List Diagnosis History of [...] screening Dysuria Medicare annual wellness visit, subsequent Past Medical History: Diagnosis Date Hypertension Past Surgical History: Procedure Laterality Date SECTION CHOLECYSTECTOMY HYSTERECTOMY Family History: Family History Problem Relation Age of Onset COPD Mother Heart disease Father Neuropathy Father Diabetes Father Social History: Social History Tobacco Use Smoking status: Never Smokeless tobacco: Never Substance and Sexual Activity Drug use: Never Sexual activity: Defer Alcohol Use: Not At Risk (01/30/2024) AUDIT-C Frequency of Alcohol Consumption: Monthly or less Average Number of Drinks: 1 or 2 Frequency of Binge Drinking: Never Allergies: No Known Allergies Medications: Current Outpatient Medications: amLODIPine (NORVASC) 10 mg [...] mouth daily, Disp: 90 tablet, Rfl: 2 meclizine (ANTIVERT) 25 mg tablet, TK 1 T PO TID PRN FOR DIZZINESS (Patient not taking: Reported on09/11/2022), Disp: , Rfl: multivitamin with minerals (DAILY MULTIVITAMIN-MINERALS ORAL), , Disp: , Rfl: ahtgv-1-sse-bfg-tso-spfp oil 1,050-1,200 mg capsule, Rx: Wallace 3, Disp: , Rfl: rosuvastatin (CRESTOR) 20 mg tablet, Take 1 tablet (20 mg total) by mouth daily, Disp: 90 tablet, Rfl: 1 semaglutide (RYBELSUS) 14 mg tablet, Take 1 tablet (14 mg total) by mouth early childhood before breakfast, Disp: 30 tablet, Rfl: 0 Detection of Cognitive Impairment: The patient does not have cognitive impairment based on direct observation, discussion with patientor family, or review of medical records. Health Maintenance: Health Maintenance Topics with due status: Overdue Topic Date Due Foot Exam Never done Hepatitis B Screening Never done Pneumococcal vaccine 65+ 01/13/2020 DTaP/Tdap/Td Vaccine 12/19/2020 Health Maintenance Topics with due status: Due Soon Topic Date Due Colorectal Cancer Screening 07/22/2024 Health Maintenance Topics with due status: Postponed Topic Postponed Until Zoster Vaccine 09/21/2024 (Originally 1997) Health Maintenance Topics with due status: Not Due Topic Last Completion Date Osteoporosis Screening-Bone Density Scan 08/07/2022 Breast Cancer Screening-Mammogram 10/18/2023 Albumin Creatinine Ratio, Urine 01/23/2024 Dilated Eye Exam 04/23/2024 Lipid Panel 05/27/2024 Hemoglobin A1C 05/27/2024 eGFR 05/27/2024 Fall Risk Assessment 06/01/2024 Depression Screening 06/01/2024 Well Visit 65+ 06/01/2024 Influenza Vaccine Not Due Health Maintenance Topics with due status: Completed Topic Last Completion Date Hepatitis C Screening 02/26/2021 Counseling and Referral of Preventative Services: Lifestyle Recommendations Increase Physical Activity, Stop Using Tobacco, Reduce Weight, and Improve Diet Advanced Directive Durable Power of Mitering Machine Operator: Discussed Today Living Will: Discussed Today Medicare Health Risk Assessment Basic Information In general, would you say your health is: Excellent Do you have an advance directive, such as a living will or durable power of electrical maintenance man?: Yes Do you have to strain or struggle to hear/understand conversations?: No Over the last 2 weeks, how often have you been bothered by any of the following problems? Little Interest or Pleasure in Doing Things: Not at all Feeling Down, Depressed, or Hopeless: Not at all PHQ-2 Total Score (If total score is 3 or more points, staff should administer the PHQ-9): 0 In the past year, patient experienced: One or more falls in the last year: No Do you feel unsteady when standing or walking?: No Do you worry about falling?: No Safety Do you have a working smoke detector in your home?: (!) No Does your home have throw rugs, poor lighting, or a slippery bath tub/shower?: No Do you always fasten your seatbelt when you are in a vehicle?: Yes What is your typical mode of transportation: Car Physical Activity How many days a week do you usually exercise?: 4-5 days per week How intense is your typical exercise?: Moderate (like brisk walking) Nutrition How would you rate your appetite?: Good How would you describe the condition of your mouth and teeth/dentures?: Good On a typical day, how many servings of fruits and vegetables do you eat?: 3 On a typical day, how many servings of high fiber/whole-grain foods do you eat?: 1 On a typical day, how many servings of high fat/fried foods do you eat?: 0 Have you experienced any of the following problems currently or recently? Eating: No Grooming: No Bathing: No Walking: No Using the toilet: (!) Yes Memory problems: No Difficulty speaking: No Dressing: No Balance: No Pain: No Sexual Health: No Fatigue: No Depression: No Life Satisfaction: No Stress: No Anger: No Loneliness or Social Isolation: No Suicide: No Have you experienced any of the following problems currently or recently? Laundry and/or housekeeping: No Handling money: No Shopping: No Using the Phone: No Food preparation: No Transportation: No Taking and/or getting your own medications: No Do you use prescription drugs that are not prescribed for you?: No Depression Screen: PHQ Screening Over the last 2 weeks, how often have you been bothered by any of the following problems? Little Interest or Pleasure in Doing Things: Not at all Feeling Down, Depressed, or Hopeless: Not at all PHQ-2 Total Score (If total score is 3 or more points, staff should administer the PHQ-9): 0 Over the past 2 weeks, how often have you been bothered by any of the following problems? Little Interest or Pleasure in Doing Things: Not at all Feeling Down, Depressed, or Hopeless: Not at all PHQ-2 Total Score (If total score is 3 or more points, staff should administer the PHQ-9): 0 If you checked off any problems, how difficult have these problems made it for you to do your work,take care of things at home, or get along with other people?: Not difficult at all Assessment and Plan: Diagnoses and all orders for this visit: Medicare annual wellness visit, subsequent (Z00.00) (Primary) Assessment & Plan: Encouraged healthy lifestyle, good nutrition and exercise. Encouraged Calcium and Vitamin D and weight bearing exercise for bone health. Reviewed immunizations. Reviewed age appropirate screenings. Medicare Wellness Documentation is completed within the chart Dysuria (R30.0) Assessment & Plan: This is a significant, separately identifiable problem that was evaluated and managed on the same day as the wellness exam Patient is complaining of increased urgency. Will check urine culture and UA to rule out infection.If symptoms persist may need additional workup. She is on an SG LT which can contribute to increased urination. Urine dip did show nitrates. Will start with Macrobid 100 b.i.d. for 5 days Orders: - POCT urinalysis dipstick - Urine culture Urine, clean voided; Future Hyperlipidemia associated with type 2 diabetes mellitus (HCC) (E11.69, E78.5) Assessment & Plan: Encouraged patient to follow low fat/low chol diet like the Mediterranean diet. Increase good fats in the diet. Increase exercise. Monitor labs as needed. Stressed importance of continued A1c control to minimize the usp effects of diabetes. Bring accuchecks to office when instructed to do so. Check A1c about every 3-6 months. Take medication as prescribed. Get annual eye exam. Encouraged ASHA/Statin if able to tolerate. Encouraged weight controland encouraged diabetic diet and exercise. Continue with right Harden's is 14 and Farxiga 10 along with the Crestor 10. She has not been taking the Crestor regular but willing to begin as we reviewed her labs. Controlled type 2 diabetes mellitus without complication, without long-term current use of insulin ([facility]/HCC) (HCC) (E11.9) Assessment & Plan: Stressed importance of continued A1c control to minimize the termite treater effects of diabetes. Bring accuchecks to office when instructed to do so. Check A1c about every 3-6 months. Take medication as prescribed. Get annual eye exam. Encouraged ASHA/Statin if able to tolerate. Encouraged weight controland encouraged diabetic diet and exercise. Continue right Harden's is 14 Farxiga 10 Hypertension associated with diabetes (HCC) (E11.59, I15.2) Assessment & Plan: Bp is stable/in acceptable range for any co-morbidities. Encouraged to limit sodium intake and exercise for weight control. Continue lisinopril 2.5 and amlodipine 10 Colon cancer screening (Z12.11) Assessment & Plan: Colonoscopy is due. Referral placed Orders: - Ambulatory referral to Gastroenterology; Future Breast cancer screening by mammogram (Z12.31) Assessment & Plan: Mammogram order provided Orders: - Screening Mammogram Bilateral W [place]; Future Morbid obesity (HCC) (E66.01) Assessment & Plan: Discussed the patient's BMI. The BMI is above average. BMI management plan is completed. BMI Follow-up includes: nutrition counseling, exercise counseling and education provided. BMI 40.0-44.9, adult (HCC) (Z68.41) Assessment & Plan: Discussed the patient's BMI. The BMI is above average. BMI management plan is completed. BMI Follow-up includes: nutrition counseling, exercise counseling and education provided. Other orders - nitrofurantoin monohydrate (MACROBID) 100 mg capsule; Take 1 capsule (100 mg total) by mouth 2 (two) times a day for 5 days Patient here for annual Medicare wellness visit and for review of complete medical problem list. All the elements of the plan were completed as outlined by CMS. A copy of the prevention plan was given to the patient. I reviewed Medicare Wellness Questionnaire (other physicians involved in care, depression screen, advanced directives), cognitive/memory, and functional assessment. I reviewed and updated the complete problem list, medication list, family history, and immunization records with the patient. I provided preventive counseling and early detection interventions to the patient through health maintenance update and summary of today's office visit. *This note is dictated using [employer] medical voice recognition software, variances in spelling and vocabulary are possible and unintentional.* Marah Jonas PA-C documented in this encounter Miscellaneous Notes * Result Encounter Note - Marah Jonas PA - 10/20/2024 3:16 PM ETHICS MANAGER Let pt know her mammogram is normal and will plan to repeat in 1 year. CS MANAGER * Assessment & Plan Note - Marah Jonas PA - 06/14/2024 12:35 AM CDT Associated Problem(s): Medicare annual wellness visit, subsequent Encouraged healthy lifestyle, good nutrition and exercise. Encouraged Calcium and Vitamin D and weight bearing exercise for bone health. Reviewed immunizations. Reviewed age appropirate screenings. Medicare Wellness Documentation is completed within the chart * Assessment & Plan Note - Marah Jonas PA - 06/14/2024 12:35 AM CDT Associated Problem(s): Dysuria This is a significant, separately identifiable problem that was evaluated and managed on the same day as the wellness exam Patient is complaining of increased urgency. Will check urine culture and UA to rule out infection.If symptoms persist may need additional workup. She is on an SG LT which can contribute to increased urination. Urine dip did show nitrates. Will start with Macrobid 100 b.i.d. for 5 days * Assessment & Plan Note - aMrah Jonas PA - 06/14/2024 12:35 AM CDT Associated Problem(s): Colon cancer screening Colonoscopy is due. Referral placed * Assessment & Plan Note - Marah Jonas PA - 06/14/2024 12:35 AM CDT Associated Problem(s): Morbid obesity (HCC) Discussed the patient's BMI. The BMI is above average. BMI management plan is completed. BMI Follow-up includes: nutrition counseling, exercise counseling and education provided. * Assessment & Plan Note - Marah Jonas PA - 06/14/2024 12:35 AM CDT Associated Problem(s): BMI 40.0-44.9, adult (HCC) Discussed the patient's BMI. The BMI is above average. BMI management plan is completed. BMI Follow-up includes: nutrition counseling, exercise counseling and education provided. * Assessment & Plan Note - Marah Jonas PA - 06/14/2024 12:34 AM CDT Associated Problem(s): Breast cancer screening by mammogram Mammogram order provided * Assessment & Plan Note - Marah Jonas PA - 06/14/2024 12:34 AM CDT Associated Problem(s): Hypertension associated with diabetes (HCC) Bp is stable/in acceptable range for any co-morbidities. Encouraged to limit sodium intake and exercise for weight control. Continue lisinopril 2.5 and amlodipine 10 * Assessment & Plan Note - Marah Jonas PA - 06/14/2024 12:34 AM CDT Associated Problem(s): Controlled type 2 diabetes mellitus without complication, without long-term current use of insulin ([facility]/HCC) (HCC) Stressed importance of continued A1c control to minimize the termite treater effects of diabetes. Bring accuchecks to office when instructed to do so. Check A1c about every 3-6 months. Take medication as prescribed. Get annual eye exam. Encouraged ASHA/Statin if able to tolerate. Encouraged weight controland encouraged diabetic diet and exercise. Continue right Fina's is 14 Farxiga 10 * Assessment & Plan Note - Marah Jonas PA - 06/14/2024 12:34 AM CDT Associated Problem(s): Hyperlipidemia associated with type 2 diabetes mellitus ([facility]) Encouraged patient to follow low fat/low chol diet like the Mediterranean diet. Increase good fats in the diet. Increase exercise. Monitor labs as needed. Stressed importance of continued A1c control to minimize the termite treater effects of diabetes. Bring accuchecks to office when instructed to do so. Check A1c about every 3-6 months. Take medication as prescribed. Get annual eye exam. Encouraged ASHA/Statin if able to tolerate. Encouraged weight controland encouraged diabetic diet and exercise. Continue with right Harden's is 14 and Farxiga 10 along with the Crestor 10. She has not been taking the Crestor regular but willing to begin as we reviewed her labs. documented in this encounter Plan of Treatment Scheduled Referrals Name Type Priority Associated Diagnoses Order Schedule Ambulatory referral to Gastroenterology Outpatient Referral Routine Colon cancer screening Expected: 06/15/2024 (Approximate), Expires: 06/01/2025 documented as of this encounter Procedures Procedure Name Priority Date/Time Associated Diagnosis Comments URINE CULTURE Routine 10/23/2024 10:12 AM ETHICS MANAGER Dysuria SCREENING MAMMOGRAM BILATERAL W [place]OL[place] Schedule Routine, Read Routine (OP Routine) 10/20/2024 1:07 PM ETHICS MANAGER Breast cancer screening by mammogram POCT URINALYSIS DIPSTICK Routine 06/01/2024 8:47 AM CDT Dysuria documented in this encounter Results * Urine culture Urine, clean voided (10/23/2024 10:12 AM ETHICS MANAGER) Urine culture Final report [facility] - 01 Result 1 Comment [facility] - 01 Comment: Mixed urogenital sid 10,000-25,000 colony forming units per mL Urine, clean voided 10/23/2024 10:12 AM ETHICS MANAGER 10/23/2024 Comment:UC Narrative [facility] - 10/25/2024 7:35 AM ETHICS MANAGER Performed at: ?? - [facility] [address] ??[id number] [place] In: Enrique Dunne PhD, Phone: ??[phone] Marah [facility] LAB MICROBIOLOGY - GENERAL ORDERABLES Final Result [facility] - 01 * Screening Mammogram Bilateral [place] (10/20/2024 1:07 PM ETHICS MANAGER) Anatomical Region Laterality Modality Breast Bilateral Mammography Marah [facility] IMG MAMMO PROCEDURES Final Result * (ABNORMAL) POCT urinalysis dipstick (06/01/2024 8:47 AM CDT) Color, Urine, POC Dark Shanon Clarity, ur, POC Cloudy(A) Clear Glucose, ur, POC 1000.(A) Negative MG/DL Bilirubin, ur, POC Negative Negative, Small, Moderate, Large Ketones, ur, POC Negative Negative Specific Foley, POC 1.020 1.003 - 1.030 Blood, ur, POC Trace(A) Negative pH, ur, POC 5.5 5.0 - 8.0 Protein, ur, POC Negative Negative Urobilinogen, urine, POC 0.2 0.2 - 1.0 mg/dL Nitrite, ur, POC Positive(A) Negative Leukocytes, ur, POC Trace(A) Negative Lot Number [id number] Urine 06/01/2024 8:47 AM CDT Marah [facility] POINT OF CARE TEST ORDERAB LES Edited Result - Final documented in this encounter Visit Diagnoses Diagnosis Medicare annual wellness visit, subsequent- Primary Dysuria Hyperlipidemia associated with type 2 diabetes mellitus (HCC) Controlled type 2 diabetes mellitus without complication, without long-term current use of insulin (CMS/HCC) (HCC) Hypertension associated with diabetes (HCC) Unspecified essential hypertension Colon cancer screening Special screening for malignant neoplasms, colon Breast cancer screening by mammogram Morbid obesity (HCC) Morbid obesity BMI 40.0-44.9, adult (HCC) documented in this encounter Care Teams Crna Relationship Specialty Start Date End Date Marah Jonas PA [address] [facility] [address] [place] [address] PCP - General Internal Medicine 04/05/19 documented as of this encounter
--- OUTSIDE RECORDS SUMMARY | 2024-11-23 05:13 | XMS_ITS | Encounter Summary ---
Author Organization [facility] Healthcare Address [address] [place] [address] Care Team Providers Care Expander Machine Operator Name Role Phone Marah Jonas Primary Care Provider +1- [phone] Encounter Details Date Type Department Care Team (Late st Contact Info) Description 04/23/2024 Orders Only [facility] Medical Group Family Medicine [address] [address] Provider, MD Joseluis [address] [place], [place] [id number] Social History Tobacco Use Types Packs/Day Years [...] Answer Date Recorded PHQ-2 Total Score 0 03/12/2024 Personal Safety Answer Date Recorded Getting School Help Needed Not on file 10/15 Comments Unknown Sex and Gender Information Value Date Recorded Sex Assigned at Not on file 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 Gender Identity Not on file Sexual Orientation Not on file Occupation Industry Job Start Date Job End Date Retired Not on file Not on file Not on file documented as of this encounter Plan of Treatment Not on file documented as of this encounter Procedures Procedure Name Priority Date/Time Associated Diagnosis Comments DIABETES EYE EXAM Routine 04/23/2024 1:47 PM CDT documented in this encounter Results * DIABETES EYE EXAM (04/23/2024 1:47 PM CDT) SCRIBED DIABETIC DILATED EYE EXAM Normal us Historical Provider [facility] MAINTENANCE Edited Result - Final documented in this encounter Visit Diagnoses Not on filedocumented in this encounter Care Teams Expander Machine Operator Relationship Specialty Start Date End Date Marah Jonas PA [address] [facility] [address] [place] [address] PCP - General Internal Medicine 04/05/19 documented as of this encounter
--- OUTSIDE RECORDS SUMMARY | 2024-11-23 05:13 | XMS_ITS | Encounter Summary ---
Author Organization [facility] Healthcare Address [address] [place] [address] Care Team Providers Care Rn Neonatal Icu Name Role Phone Marah Jonas Primary Care Provider +1- [phone] Encounter Details Date Type Department Care Team (Late st Contact Info) Description 10/26/2024 Orders Only [facility] Medical Group Family Medicine [address] [place] [address] Marah Jonas PA [address] [place] [address] Social History Tobacco Use Types Packs/Day Years [...] on file 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 Gender Identity Not on file Sexual Orientation Not on file Occupation Industry Job Start Date Job End Date Retired Not on file Not on file Not on file documented as of this encounter Ordered Prescriptions Prescription Sig Dispense Quantity Refills Last Filled Start Date End Date clotrimazole-betam ethasone (LOTRISONE) cream Apply topically 2 (two) times a day 30 g 10/26/2024 documented in this encounter Plan of Treatment Not on file documented as of this encounter Visit Diagnoses Not on filedocumented in this encounter Discontinued Medications Medication Sig Discontinue Reason Start Date End Da te clotrimazole-betamethas one (LOTRISONE) cream Apply topically 2 (two) times a day Reorder 01/30/2024 10/26/2024 documented as of this encounter Care Teams Rn Neonatal Icu Relationship Specialty Start Date End Date Marah Jonas PA [address] [facility] [address] [place] [address] PCP - General Internal Medicine 04/05/19 documented as of this encounter
--- OUTSIDE RECORDS SUMMARY | 2024-11-23 05:13 | XMS_ITS | Encounter Summary ---
Author Organization [facility] Healthcare Address [address] [place] [address] Care Team Providers Care Glove Cutter Name Role Phone Marah Jonas Primary Care Provider +1- [phone] Reason for Visit * Reason Comments Follow-up Encounter Details Date Type Department Care Team (Late st Contact Info) Description 03/12/2024 9:30 AM CDT Office Visit [facility] Medical Group Family Medicine [address] [facility] [address] [place] [address] Marah Jonas PA [address] [facility] [address] [place] [address] Controlled type 2 diabetes mellitus without complication, without long-term current use of insulin (CMS/HCC) (HCC) (Primary Dx); Hypertension associated with diabetes (HCC); Hyperlipidemia associated with type 2 diabetes mellitus (HCC); BMI 40.0-44.9, adult (HCC); Morbid obesity (HCC) Social History Tobacco Use Types Packs/Day [...] on file 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21 03/12/2024 9:37 AM CDT documented in this encounter Progress Notes * Marah Jonas PA - 03/12/2024 9:30 AM CDT Images from the original note were not included. Subjective/Objective Patient ID: Mandy Oconnor is a 78 y.o. female. Chief Complaint Follow-up HPI Patient presents to follow-up her diabetes. She started Rybelsus and is now on 14mg. She is also onFarxiga 10mg. Tolerating well. Minimal side effects. Her A1c in the office today was 6.5 She is very excited. HLD - Crestor 20 HTN - lisinopril 2.5 and amlodipine 10mg Review of Systems See HPI Vitals: 03/12/24 0937 BP: 122/80 BP Location: Right arm Patient Position: Sitting Pulse: 79 Temp: 36.6 ??C (97.9 ??F) TempSrc: Oral SpO2: 99% Weight: 111.5 kg (245 lb 14.4 oz) Height: 162.6 cm (5' 4 ) Physical Exam Vitals and nursing note [...] Diagnoses and all orders for this visit: Controlled type 2 diabetes mellitus without complication, without long-term current use of insulin ([facility]) (HCC) (E11.9) (Primary) Assessment & Plan: Stressed importance of continued A1c control to minimize the ocean transportation intermediary effects of diabetes. Bring accuchecks to office when instructed to do so. Check A1c about every 3-6 months. Take medication as prescribed. Get annual eye exam. Encouraged ASHA/Statin if able to tolerate. Encouraged weight controland encouraged diabetic diet and exercise. Diabetes is well controlled with A1c at 6.5. Continue right Harden's is 14 and Farxiga 10 Hypertension associated with diabetes ([facility]) (E11.59, I15.2) Assessment & Plan: Bp is stable/in acceptable range for any co-morbidities. Encouraged to limit sodium intake and exercise for weight control. Continue amlodipine 10 and lisinopril 2.5 Orders: - Hemoglobin A1c; Future - Comprehensive metabolic panel; Future - Lipid panel; Future Hyperlipidemia associated with type 2 diabetes mellitus ([facility]) (E11.69, E78.5) Assessment & Plan: Encouraged patient to follow low fat/low chol diet like the Mediterranean diet. Increase good fats in the diet. Increase exercise. Monitor labs as needed. Continue Crestor BMI 40.0-44.9, adult ([facility]) (Z68.41) Assessment & Plan: Discussed the patient's BMI. The BMI is above average. BMI management plan is completed. BMI Follow-up includes: nutrition counseling, exercise counseling and education provided. Morbid obesity ([facility]) (E66.01) Assessment & Plan: Discussed the patient's BMI. The BMI is above average. BMI management plan is completed. BMI Follow-up includes: nutrition counseling, exercise counseling and education provided. *This note is dictated using [employer] medical voice recognition software, variances in spelling and vocabulary are possible and unintentional.* Marah Jonas PA-C documented in this encounter Miscellaneous Notes * Assessment & Plan Note - Marah Jonas PA - 03/16/2024 6:52 PM CDT Associated Problem(s): Morbid obesity (HCC) Discussed the patient's BMI. The BMI is above average. BMI management plan is completed. BMI Follow-up includes: nutrition counseling, exercise counseling and education provided. * Assessment & Plan Note - Marah Jonas PA - 03/16/2024 6:52 PM CDT Associated Problem(s): BMI 40.0-44.9, adult (HCC) Discussed the patient's BMI. The BMI is above average. BMI management plan is completed. BMI Follow-up includes: nutrition counseling, exercise counseling and education provided. * Assessment & Plan Note - Marah Jonas PA - 03/16/2024 6:52 PM CDT Associated Problem(s): Hypertension associated with diabetes (HCC) Bp is stable/in acceptable range for any co-morbidities. Encouraged to limit sodium intake and exercise for weight control. Continue amlodipine 10 and lisinopril 2.5 * Assessment & Plan Note - Marah Jonas PA - 03/16/2024 6:52 PM CDT Associated Problem(s): Controlled type 2 diabetes mellitus without complication, without long-term current use of insulin ([facility]) (HCC) Stressed importance of continued A1c control to minimize the correction effects of diabetes. Bring accuchecks to office when instructed to do so. Check A1c about every 3-6 months. Take medication as prescribed. Get annual eye exam. Encouraged ASHA/Statin if able to tolerate. Encouraged weight controland encouraged diabetic diet and exercise. Diabetes is well controlled with A1c at 6.5. Continue right Harden's is 14 and Farxiga 10 * Assessment & Plan Note - Marah Jonas PA - 03/16/2024 6:52 PM CDT Associated Problem(s): Hyperlipidemia associated with type 2 diabetes mellitus (HCC) Encouraged patient to follow low fat/low chol diet like the Mediterranean diet. Increase good fats in the diet. Increase exercise. Monitor labs as needed. Continue Crestor documented in this encounter Plan of Treatment Not on file documented as of this encounter Procedures Procedure Name Priority Date/Time Associated Diagnosis Comments HEMOGLOBIN A1C Routine 05/27/2024 9:55 AM CDT Hypertension associated with diabetes (HCC) LIPID PANEL Routine 05/27/2024 9:55 AM CDT Hypertension associated with diabetes (HCC) COMPREHENSIVE METABOLIC PANEL Routine 05/27/2024 9:55 AM CDT Hypertension associated with diabetes (HCC) documented in this encounter Results * (ABNORMAL) Lipid panel (05/27/2024 9:55 AM CDT) Cholesterol 218(H) 100 - 199 mg/dL [facility] - 01 Triglycerides 186(H) 0 - 149 mg/dL [facility] - 01 HDL Cholesterol 37(L) >39 mg/dL [facility] - 01 VLDL 34 5 - 40 mg/dL [facility] - 01 LDL, calculated 147(H) 0 - 99 mg/dL [facility] - 01 Blood 05/27/2024 9:55 AM CDT 05/27/2024 Narrative [facility] - 05/28/2024 9:37 AM CDT Performed at: ??01 - [address] ??[id number] Ditto Machine Operator: Enrique Dunne PhD, Phone: ??[phone] Marah WELCH LAB BLOOD ORDERABLES Final Result [facility] - 01 * (ABNORMAL) Comprehensive metabolic panel (05/27/2024 9:55 AM CDT) Pathologist [facility] Glucose 135(H) 70 - 99 mg/dL [facility] - 01 BUN 15 8 - 27 mg/dL [facility] - 01 Creatinine, Serum 0.69 0.57 - 1.00 mg/dL [facility] - 01 eGFR 89 >59 mL/min/1.7 3 [facility] - 01 BUN/creat ratio 22 12 - 28 [facility] - 01 Sodium 140 134 - 144 mmol/L [facility] - 01 Potassium, sr 5.1 3.5 - 5.2 mmol/L [facility] - 01 Chloride 101 96 - 106 mmol/L [facility] - 01 CO2 23 20 - 29 mmol/L [facility] - 01 Calcium 9.8 8.7 - 10.3 mg/dL [facility] - 01 Protein, sr 6.8 6.0 - 8.5 g/dL [facility] - 01 Albumin 4.4 3.8 - 4.8 g/dL [facility] - 01 Globulin, Total 2.4 1.5 - 4.5 g/dL [facility] - 01 Bilirubin, Total 0.7 0.0 - 1.2 mg/dL [facility] - 01 Alk phos 96 44 - 121 IU/L [facility] - 01 AST 16 0 - 40 IU/L [facility] - 01 ALT 17 0 - 32 IU/L [facility] - 01 Blood 05/27/2024 9:55 AM CDT 05/27/2024 Narrative [facility] - 05/28/2024 9:37 AM CDT Performed at: ??01 - [facility] ??[id number] Ditto Machine Operator: Enrique Dunne PhD, Phone: ??[phone] Marah WELCH LAB BLOOD ORDERABLES Final Result Performing Organization Address [facility] de Phone Number [facility] - 01 * (ABNORMAL) Hemoglobin A1c (05/27/2024 9:55 AM CDT) Hgb A1C 7.5(H) 4.8 - 5.6 % [facility] - 01 Comment: ? Prediabetes: 5.7 - 6.4 ? Diabetes: >6.4 ? Glycemic control for adults with diabetes: <7.0 Blood 05/27/2024 9:55 AM CDT 05/27/2024 Narrative [facility] - 05/28/2024 7:37 AM CDT Performed at: ??01 - [address] ??[id number] Ditto Machine Operator: Enrique Dunne PhD, Phone: ??[phone] Result [facility] Marah WELCH LAB BLOOD ORDERABLES Final Result Performing Organization Address [facility] Phone Number [facility] - 01 documented in this encounter Visit Diagnoses Diagnosis Controlled type 2 diabetes mellitus without complication, without long-term current use of insulin ([facility]) (HCC)- Primary Hypertension associated with diabetes (HCC) Unspecified essential hypertension Hyperlipidemia associated with type 2 diabetes mellitus ([facility]) BMI 40.0-44.9, adult ([facility]) Morbid obesity (HCC) Morbid obesity documented in this encounter Discontinued Medications Medication Sig Discontinue Reason Start Date End Da te benzonatate (TESSALON) 200 mg capsuleIndications:Lower respiratory infection (e.g., bronchitis, pneumonia, pneumonitis, pulmonitis) Take 1 capsule (200 mg total) by mouth 3 (three) times a day as needed for cough 07/14/2023 03/16/2024 documented as of this encounter Historical Medications * This list may reflect changes made after this encounter. fluconazole (DIFLUCAN) 150 mg tablet TAKE ONE TABLET BY MOUTH A ONE-TIME DOSE 01/30/2024 added in this encounter Care Teams Glove Cutter Relationship Specialty Start Date End Date Marah Jonas PA [address] [facility] [address] [place] [address] PCP - General Internal Medicine 04/05/19 documented as of this encounter
--- OUTSIDE RECORDS SUMMARY | 2024-11-23 05:13 | XMS_ITS | Encounter Summary ---
Author Organization [facility] Healthcare Address [address] [place] [address] Care Team Providers Care Lot Porter Name Role Phone Marah Jonas Primary Care Provider +1- [phone] Reason for Visit * Reason Onset Date Comments Cough 07/06/2024 Encounter Details Date Type Department Care Team (Late st Contact Info) Description 07/06/2024 Nurse Triage [facility] Medical Group Family Medicine [address] [place] [address] Marah Jonas PA [address] [place] [address] Social History Tobacco Use Types [...] on file 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 Had a chillthat afternoon before symptoms started, no fever noted. Cough is not productive. Used 2 tablets of mucinex. No other illness s/s. No chest pain, no SOB, no wheezing. No known exposures. No COVID testdone. No sinus pain. Decreased appetite, no loss of taste or smell. RN gave care advice and scheduled at [facility] tomorrow AM as no open OV or CC appt today. To call if worsens. Reason for Disposition Taking an ASHA Inhibitor medicine (e.g., benazepril/LOTENSIN, captopril/CAPOTEN, enalapril/VASOTEC, lisinopril/ZESTRIL) Protocols used: [id number] * Telephone Encounter - Acacia Baird RN - 07/06/2024 11:59 AM CDT Regarding: Cough/Nasal Drainage ----- Message from Marysol Ngo sent at 07/06/2024 8:47 AM CDT ----- Symptom Based Call Chief Complaint(s): Cough/Nasal Drainage Duration: S/s developed on 07.04.24 What type of symptom(s) is the patient experiencing? Non-Emergent. Is this a new or reoccurring symptom(s)? New What have you tried to help your symptom(s)? OTC Musinex Why was appointment not scheduled? Appointment availability did not meet the patient's need. Additional Comments: There are no same day appts available at provider office. Patient states her nasal drainage and cough started on 07/04/24 with no known fevers or any other abnormal symptoms. Patient states she feels well overall however her son is getting this Friday and needs to be evaluated and treated. Does message need to be routed? Yes-Action Needed documented in this encounter Plan of Treatment Not on file documented as of this encounter Visit Diagnoses Not on filedocumented in this encounter Care Teams Lot Porter Relationship Specialty Start Date End Date Marah Jonas PA [address] [address] PCP - General Internal Medicine 04/05/19 documented as of this encounter
--- OUTSIDE RECORDS SUMMARY | 2024-11-23 05:13 | XMS_ITS | Encounter Summary ---
Author Organization [facility] Healthcare Address [address] [place] [address] Care Team Providers Care Reworker Name Role Phone Marah Jonas Primary Care Provider +1- [phone] Encounter Details Date Type Department Care Team (Late st Contact Info) Description 10/12/2024 Orders Only [facility] Medical Group Family Medicine [address] [place] [address] Marah Jonas PA [address] [place] [address] Hypertension associated with diabetes (HCC) (Primary Dx); Abnormal TSH; Fatigue, unspecified type Social History Tobacco Use Types Packs/Day Years [...] on file 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 Gender Identity Not on file Sexual Orientation Not on file Occupation Industry Job Start Date Job End Date Retired Not on file Not on file Not on file documented as of this encounter Plan of Treatment Not on file documented as of this encounter Procedures Procedure Name Priority Date/Time Associated Diagnosis Comments CBC WITH AUTO DIFFERENTIAL Routine 10/23/2024 10:11 AM STOCK REPLENISHER Hypertension associated with diabetes (HCC) ALBUMIN CREATININE RATIO, URINE Routine 10/23/2024 10:11 AM STOCK REPLENISHER Hypertension associated with diabetes (HCC) TSH Routine 10/23/2024 10:11 AM STOCK REPLENISHER Fatigue, unspecified type HEMOGLOBIN A1C Routine 10/23/2024 10:11 AM STOCK REPLENISHER Hypertension associated with diabetes (HCC) VITAMIN B12 Routine 10/23/2024 10:11 AM STOCK REPLENISHER Hypertension associated with diabetes (HCC) LIPID PANEL Routine 10/23/2024 10:11 AM STOCK REPLENISHER Hypertension associated with diabetes (HCC) COMPREHENSIVE METABOLIC PANEL Routine 10/23/2024 10:11 AM STOCK REPLENISHER Hypertension associated with diabetes (HCC) documented in this encounter Results * Vitamin B12 (10/23/2024 10:11 AM STOCK REPLENISHER) Vitamin B12 304 232 - 1,245 pg/mL [facility] - 01 Blood 10/23/2024 10:1 1 AM STOCK REPLENISHER 10/23/2024 Narrative [facility] - 10/24/2024 7:35 AM STOCK REPLENISHER Performed at: ??01 - [facility] [address], [place], [place] ??[id number] Staff Air Tactical Officer: Enrique Dunne PhD, Phone: ??[phone] us Marah WELCH LAB BLOOD ORDERABLES Final Result [facility] - 01 * TSH (10/23/2024 10:11 AM STOCK REPLENISHER) Pathologist [facility] TSH 2.500 0.450 - 4.500 uIU/mL [facility] - 01 Blood 10/23/2024 10:1 1 AM STOCK REPLENISHER 10/23/2024 Narrative [facility] - 10/24/2024 9:35 AM STOCK REPLENISHER Performed at: ??01 - [facility] [address] ??[id number] Staff Air Tactical Officer: Enrique Dunne PhD, Phone: ??[phone] Marah WELCH LAB BLOOD ORDERABLES Final Result Performing Organization Address City/[facility]/ZIP Co de Phone Number [facility] - * (ABNORMAL) Lipid panel (10/23/2024 10:11 AM STOCK REPLENISHER) Pathologist [facility] Cholesterol 221(H) 100 - 199 mg/dL [facility] - 01 Triglycerides 159(H) 0 - 149 mg/dL [facility] - 01 HDL Cholesterol 41 >39 mg/dL [facility] - 01 VLDL 29 5 - 40 mg/dL [facility] - 01 LDL, calculated 151(H) 0 - 99 mg/dL [facility] - 01 Blood 10/23/2024 10:1 1 AM STOCK REPLENISHER 10/23/2024 Narrative [facility] - 10/24/2024 9:35 AM STOCK REPLENISHER Performed at: ??01 - [facility] [address] ??[id number] Staff Air Tactical Officer: Enrique Dunne PhD, Phone: ??[phone] Marah WELCH LAB BLOOD ORDERABLES Final Result Performing Organization Address City[facility]/ZIP Co de Phone Number [facility] - * (ABNORMAL) Hemoglobin A1c (10/23/2024 10:11 AM STOCK REPLENISHER) Pathologist [facility] Hgb A1C 7.1(H) 4.8 - 5.6 % [facility] - 01 Comment: ? Prediabetes: 5.7 - 6.4 ? Diabetes: >6.4 ? Glycemic control for adults with diabetes: <7.0 Blood 10/23/2024 10:1 1 AM STOCK REPLENISHER 10/23/2024 Narrative [facility] - 10/24/2024 7:35 AM STOCK REPLENISHER Performed at: ??01 - [facility], [place], [place] ??[id number] Staff Air Tactical Officer: Enrique Dunne PhD, Phone: ??[phone] Marah WELCH LAB BLOOD ORDERABLES Final Result [facility] - 01 * (ABNORMAL) Comprehensive metabolic panel (10/23/2024 10:11 AM STOCK REPLENISHER) Glucose 138(H) 70 - 99 mg/dL [facility] [...] - 01 Blood 10/23/2024 10:1 1 AM STOCK REPLENISHER 10/23/2024 Narrative [facility] - 10/24/2024 9:35 AM STOCK REPLENISHER Performed at: ??01 - [facility] [address] ??[id number] Staff Air Tactical Officer: Enrique Dunne PhD, Phone: ??[phone] Marah WELCH LAB BLOOD ORDERABLES Final Result [facility] - 01 * (ABNORMAL) CBC with auto differential (10/23/2024 10:11 AM STOCK REPLENISHER) WBC 10.2 3.4 - 10.8 x10E3/uL [facility] [...] - 01 Blood 10/23/2024 10:1 1 AM STOCK REPLENISHER 10/23/2024 Narrative [facility] - 10/24/2024 7:35 AM STOCK REPLENISHER Performed at: ??01 - [facility] ??[id number] Staff Air Tactical Officer: Enrique Dunne PhD, Phone: ??[phone] Marah WELCH LAB BLOOD ORDERABLES Final Result Performing Organization Address [facility] de Phone Number [facility] - 01 * Albumin Creatinine Ratio, Urine (10/23/2024 10:11 AM STOCK REPLENISHER) Creatinine ur 105.5 Not Estab. mg/dL [facility] - 01 Microalbumin, ur 12.3 Not Estab. ug/mL [facility] - 01 Microalbumin/cre at ratio 12 0 - 29 mg/g creat [facility] - 01 Comment: ? Normal: ?0 - ??29 ? Moderately increased: 30 - 300 ? Severely increased: ? >300 Urine 10/23/2024 10:1 1 AM STOCK REPLENISHER 10/23/2024 Narrative [facility] - 10/26/2024 7:36 AM STOCK REPLENISHER Performed at: ??01 - [facility] ??[id number] Staff Air Tactical Officer: Enrique Dunne PhD, Phone: ??[phone] Marah WELCH LAB URINE ORDERABLES Final Result Performing Organization Address [facility]/State/ZIP Co de Phone Number [facility] - 01 documented in this encounter Visit Diagnoses Diagnosis Hypertension associated with diabetes (HCC)- Primary Unspecified essential hypertension Abnormal TSH Fatigue, unspecified type documented in this encounter Care Teams Reworker Relationship Specialty Start Date End Date Marah Jonas PA [address] [facility] [address] [place] [address] PCP - General Internal Medicine 04/05/19 documented as of this encounter
--- OUTSIDE RECORDS SUMMARY | 2024-11-23 05:13 | XMS_ITS | Encounter Summary ---
Author Organization [facility] Healthcare Address [address] [place] [address] Care Team Providers Care It Security Administrator Name Role Phone Marah Jonas Primary Care Provider +1- [phone] Reason for Visit * Reason Onset Date Comments Medication Request 05/03/2024 Encounter Details Date Type Department Care Team (Late st Contact Info) Description 05/03/2024 Telephone [facility] Family Medicine [address] [place] [address] Marah Jonas PA [address] [facility] [address] [place] [address] Medication Request Social History Tobacco Use Types Packs/Day Years [...] on file 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 Returned patient call on 05.05.24. Reassured her that her medication through patient assistance is still valid. * Telephone Encounter - Myla Nava MA - 05/05/2024 10:52 AM CDT LM for patient to call. Transfer to [facility] * Telephone Encounter - Dana Farnsworth - 05/03/2024 9:39 AM CDT Medical Question/Miscellaneous Caller???s Concern: Pt is calling stating that she is needing to speak to Myla regarding her rybelsus. She said that she received a letter and would like to discuss with Myla Please follow up with patient Does message need to be routed? Yes-Action Needed documented in this encounter Plan of Treatment Not on file documented as of this encounter Visit Diagnoses Not on filedocumented in this encounter Care Teams It Security Administrator Relationship Specialty Start Date End Date Marah Jonas PA [address] [place] [address] PCP - General Internal Medicine 04/05/19 documented as of this encounter
--- OUTSIDE RECORDS SUMMARY | 2024-11-23 05:13 | XMS_ITS | Encounter Summary ---
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 Gender Identity Not on file Sexual Orientation Not on file Occupation Industry Job Start Date Job End Date Retired Not on file Not on file Not on file documented as of this encounter Ordered Prescriptions Prescription Sig Dispense Quantity Refills Last Filled Start Date End Date semaglutide (RYBELSUS) 14 mg tablet Take 1 tablet (14 mg total) by mouth director of early childhood before breakfast 120 tablet 2 08/07/2024 documented in this encounter Miscellaneous Notes * Telephone Encounter - Cara Persaud MA - 09/02/2024 10:26 AM CDT Complete documented in this encounter Plan of Treatment Not on file documented as of this encounter Visit Diagnoses Not on filedocumented in this encounter Discontinued Medications Medication Sig Discontinue Reason Start Date End Da te semaglutide (RYBELSUS) 14 mg tablet Take 1 tablet (14 mg total) by mouth director of early childhood before breakfast 05/19/2023 08/07/2024 documented as of this encounter Care Teams Lineman Relationship Specialty Start Date End Date Marah Jonas PA [address] [facility] [address] [place] [address] PCP - General Internal Medicine 04/05/19 documented as of this encounter
--- OUTSIDE RECORDS SUMMARY | 2024-11-23 05:13 | XMS_ITS | Encounter Summary ---
Author Organization [facility] Healthcare Address [address] [place] [address] Care Team Providers Care Straightening Machine Operator Name Role Phone Marah Jonas Primary Care Provider +1- [phone] Reason for Visit * Reason Onset Date Comments Medical Question/Miscellaneous 10/15/2023 Encounter Details Date Type Department Care Team (Late st Contact Info) Description 10/15/2023 Telephone [facility] Medical Group Family Medicine [address] [place] [address] Marah Jonas PA [address] [facility] [address] [place] [address] Medical Question/Miscellaneous Social History Tobacco [...] staff should administer the PHQ-9) 0 09/22/2023 Personal Safety Answer Date Recorded Getting School Help Needed Not on file 12/13 /2023 Comments Unknown Sex and Gender Information Value Date Recorded Sex Assigned at Not on file Legal Sex Female 6:23 PM BOTTLE SELECTOR Gender Identity Not on file Sexual Orientation Not on file Occupation Industry Job Start Date Job End Date Retired Not on file Not on file Not on file documented as of this encounter Miscellaneous Notes * Telephone Encounter - Myla Nava MA - 10/30/2023 10:36 AM CST Was able to talk to someone at [facility] and was instructed to fax patient's insurance card again. Insurance card was faxed and I received conformation it went through. Called patient and explained. Will wait to hear back from [employer]. LE SELECTOR * Telephone Encounter - Myla Nava MA - 10/21/2023 3:00 PM CST LM for patient letting her know that I did try and find out about her medication this afternoon. Was on hold for 2 1/2 hours and had to give up. Will try again tomorrow. LE SELECTOR * Telephone Encounter - Ruth Mark - 10/21/2023 8:16 AM CST Call Back Caller???s Concern: Patient called seeking confirmation if semaglutide (RYBELSUS) 14 mg tablet has been delivered to practice as of yet. Patient advised she only has two pills left. Patient seeking possible samples if medication has not yet been delivered. Patient states she has attempted several times to contact delivery company to check status, but patient could not reach anyone. Please advise with patient by phone to discuss. Does message need to be routed? Yes-Action Needed LE SELECTOR * Telephone Encounter - Cici Walker LPN - 10/15/2023 9:38 AM BOTTLE SELECTOR Called pt and let her know that Rybelsus has not arrived. Gave pt phone number to call and check onstatus of delivery. She is going to call and if it will come after she runs out of her medication, she will call office back for samples. LE SELECTOR * Telephone Encounter - Elaine Valdes - 10/15/2023 9:07 AM CST Medical Question/Miscellaneous Caller???s Concern: Patient is calling to see if the semaglutide (RYBELSUS) 14 mg tablet has arrived at the practice so the patient can come and pick it up. Please contact patient to advise. Does message need to be routed? Yes-Action Needed LE SELECTOR documented in this encounter Plan of Treatment Not on file documented as of this encounter Visit Diagnoses Not on filedocumented in this encounter Care Teams Straightening Machine Operator Relationship Specialty Start Date End Date Marah Jonas PA [address] [facility] [address] [place] [address] PCP - General Internal Medicine 04/05/19 documented as of this encounter
--- OUTSIDE RECORDS SUMMARY | 2024-11-23 05:13 | XMS_ITS | Encounter Summary ---
Author Organization [facility] Healthcare Address [address] [place] [address] Care Team Providers Care Pigment Processor Name Role Phone Marah Jonas Primary Care Provider +1- [phone] Encounter Details Date Type Department Care Team (Latest Contact Info) Description 07/14/2023 2:36 PM CDT - 07/14/2023 11:59 PM CDT Hospital Encounter [address] [address] Lower respiratory infection (e.g., bronchitis, pneumonia, pneumonitis, pulmonitis) Discharge Disposition: Discharge to home or self care Social History Tobacco Use Types Packs/Day Years [...] points, staff should administer the PHQ-9) 0 05/19/2023 Comments Unknown Sex and Gender Information Value Date Recorded Sex Assigned at Not on file Legal Sex Female 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 HOSIERY PAIRER Gender Identity Not on file Sexual Orientation Not on file Occupation Industry Job Start Date Job End Date Retired Not on file Not on file Not on file documented as of this encounter Medications at Time of Discharge cholecalciferol (VITAMIN D-3) 5,000 unit tablet 0.2 tablets (1,000 Units total) collagen, hydrolysate, bovine, (collagen, hydr, bovine,, bulk,) 100 % powder fluticasone propionate (FLONASE) 50 mcg/actuation nasal spray Administer 1 spray into each nostril daily 3 Inhaler 2 07/25/2020 meclizine (ANTIVERT) 25 mg tablet TK 1 T PO TID PRN FOR DIZZINESS 11/13/2019 multivitamin with minerals (DAILY MULTIVITAMIN-MINE RALS ORAL) [id number]-d pa-fish oil 1,050-1,200 mg capsule Rx: [place] 3 amLODIPine (NORVASC) 10 mg tablet Take 1 tablet (10 mg total) by mouth daily 90 tablet 2 05/19/2023 3 azithromycin (ZITHROMAX) 250 mg tabletIndications :Lower respiratory infection (e.g., bronchitis, pneumonia, pneumonitis, pulmonitis) Take 2 tablets the first day, then 1 tablet daily for 4 days. 6 tablet 07/14/2023 3 benzonatate (TESSALON) 200 mg capsuleIndication s:Lower respiratory infection (e.g., bronchitis, pneumonia, pneumonitis, pulmonitis) Take 1 capsule (200 mg total) by mouth 3 (three) times a day as needed for cough 30 capsule 07/14/2023 4 lisinopriL (PRINIVIL,ZESTRIL ) 2.5 mg tablet Take 1 tablet (2.5 mg total) by mouth daily 90 tablet 2 05/19/2023 3 rosuvastatin (CRESTOR) 10 mg tablet Take 0.5 tablets (5 mg total) by mouth daily 90 tablet 1 12/12/2022 3 semaglutide (RYBELSUS) 14 mg tablet Take 1 tablet (14 mg total) by mouth bruise trimmer before breakfast 30 tablet 05/19/2023 4 documented as of this encounter Discharge Disposition Disposition Code Departure Means Destination Discharge to home or self care documented in this encounter Plan of Treatment Not on file documented as of this encounter Procedures Procedure Name Priority Date/Time Associated Diagnosis Comments INFLUENZA A/B, RSV, AND COVID-19 PCR Routine 07/14/2023 2:36 PM CDT Lower respiratory infection (e.g., bronchitis, pneumonia, pneumonitis, pulmonitis) documented in this encounter Results * Influenza A/B, RSV, and COVID-19 PCR Nasopharyngeal (07/14/2023 2:36 PM CDT) COVID-19 RNA Negative Negative [facility] Influenza A RNA Negative Negative [facility] Influenza B RNA Negative Negative [facility] RSV RNA Negative Negative [facility] Comment: Interpretive data: This test is performed using the [employer] Xpert Xpress CoV-2/Flu/RSV plus assay. This is a multiplex, real-time reverse transcriptase PCR assay intended for the qualitative detection of nucleic acid from SARS-CoV-2, influenza A, influenza B, and respiratory syncytial virus. This assay has been reviewed by the FDA for Emergency Use Authorization (EUA). The performance characteristics have been verified by the performing laboratory. Results must be considered in the clinical context, and a negative result does not rule out infection. Interpretive Data last revised 2021. Nasopharyngeal 07/14/2023 2: 36 PM CDT 07/14/2023 9:20 PM CDT Narrative [facility] - 07/14/2023 10:13 PM CDT Is the Patient experiencing symptoms consistent with COVID?->Yes Date of Symptom Onset->07/07/23 Reason for testing?->Symptomatic us Hina Greenfield NP LAB MICROBIOLOGY - GENERAL ORD ERABLES Final Result [facility] [address] Department [place] [address] documented in this encounter Visit Diagnoses Diagnosis Lower respiratory infection (e.g., bronchitis, pneumonia, pneumonitis, pulmonitis) documented in this encounter Additional Health Concerns Infection Onset Date Last Indicated Resolved Time COVID: Suspected 07/14/2023 07/14/2023 07/14/2023 10:14 PM CDT documented as of this encounter Care Teams Pigment Processor Relationship Specialty Start Date End Date Marah Jonas PA [address] [facility] [address] [place] [address] PCP - General Internal Medicine 04/05/19 documented as of this encounter
--- OUTSIDE RECORDS SUMMARY | 2024-11-23 05:13 | XMS_ITS | Encounter Summary ---
Author Organization [facility] Healthcare Address [address] [place] [address] Care Team Providers Care Tap Builder Name Role Phone Marah Jonas Primary Care Provider +1- [phone] Reason for Visit * Reason Onset Date Comments Med Refill 11/11/2023 Encounter Details Date Type Department Care Team (Late st Contact Info) Description 11/11/2023 Telephone [facility] Family Medicine [address] [facility] [address] [place] [address] Marah Jonas PA [address] [facility] [address] [place] [address] Med Refill Social History Tobacco Use Types Packs/Day Years [...] on file Legal Sex Female 6:23 PM LADLE HANDLER Gender Identity Not on file Sexual Orientation Not on file Occupation Industry Job Start Date Job End Date Retired Not on file Not on file Not on file documented as of this encounter Miscellaneous Notes * Telephone Encounter - Myla Nava MA - 11/11/2023 10:14 AM CST Patient's medication was approved by [employer] to receive Rybelus. It will be shipped and delivered to the office in 10 -14 days. Informed patient that she can come in and flower picker samples to hold her over until the medicine is delivered. She will flower picker samples at the front loader residential driver today. E HANDLER * Telephone Encounter - Jacqueline Acosta - 11/11/2023 8:30 AM CST Medication Question/Clarification Medication Name(s): rybelsus 14 mg What is the question or clarification needed? She is wanting to know if there are samples. She has 2 days left. If needed, Pharmacy(s) medication(s) should be sent to: na Additional Comments: None Does message need to be routed? Yes-Action Needed E HANDLER documented in this encounter Plan of Treatment Not on file documented as of this encounter Visit Diagnoses Not on filedocumented in this encounter Care Teams Tap Builder Relationship Specialty Start Date End Date Marah Jonas PA [address] [facility] [address] [place] [address] PCP - General Internal Medicine 04/05/19 documented as of this encounter
--- OUTSIDE RECORDS SUMMARY | 2024-11-23 05:13 | XMS_ITS | Referral Summary ---
Author Organization [facility] [address] [facility] Address [address] [place] [address] Care Team Providers Care Tilting Head Band Sawyer Name Role Phone Marah Jonas Primary Care Provider [phone]- [phone] Encounters Date Type Department Care Team Description 10/26/2024 Orders Only [facility] Medicine [address] [place] [address] Marah Jonas PA 10/19/2024 Telephone [facility] [address] [place] [address] Marah Jonas PA needs lab prior to 11/09 visit 10/12/2024 Orders Only [facility] Medicine [address] [place] [address] Marah Jonas PA Hypertension associated with diabetes (HCC) (Primary Dx); Abnormal TSH; Fatigue, unspecified type 10/12/2024 Telephone [facility] [address] [place] [address] Marah Jonas PA Medical Question/Miscellaneous 09/09/2024 Telephone [facility] [address] [place] [address] Marah Jonas PA Medical Question/Miscellaneous from Last 3 Months Allergies No known active allergies Medications orqxo-9-kxk-epa -dpa-fish oil 1,050-1,200 mg capsule Rx: Slater 3 Active multivitamin with minerals (DAILY MULTIVITAMIN-MS NERALS ORAL) Active meclizine (ANTIVERT) 25 mg [...] 1 tablet (14 mg total) by mouth crust sorter before breakfast 120 tablet 2 4 Active [...] provided. Assessment & Plan (09/22/2023 11:06 AM POWERTRAIN DESIGN ENGINEER): Discussed the patient's BMI. The BMI is [...] (06/26/2021): Labs with minimally elevated AST/ALT since 2018, and in 02/2021 she developed acute rise [...] AM CDT): Normalized -- awaiting recommendations from commercial census taker. Assessment & Plan (02/25/2021 9:22 AM CDT): Recheck LFTs to see if transient rise. Check Hepatitis panel CBC is also upper normal so will check ferritin/iron panel. Patient is to followup immediately if increased pain, juandice,etc. RUQ discomfort 02/06/2021 Assessment & Plan (04/30/2021 12:32 AM CDT): Episode of pain that resulted in elevated LFTs --- Still unknown etiology Await recommendations from commercial census taker. Assessment & Plan (02/25/2021 9:21 AM CDT): [...] daily Assessment & Plan (09/22/2023 11:05 AM POWERTRAIN DESIGN ENGINEER): Bp is stable/in acceptable range for any [...] control. Assessment & Plan (12/22/2022 11:03 PM POWERTRAIN DESIGN ENGINEER): Bp is stable/in acceptable range for any co-morbidities. Encouraged to limit sodium intake and exercise for weight control. Continue amlodipine lisinopril Assessment & Plan (09/11/2022 3:22 PM POWERTRAIN DESIGN ENGINEER): Bp is stable/in acceptable range for any [...] lisinopril Assessment & Plan (10/13/2020 4:34 PM POWERTRAIN DESIGN ENGINEER): Bp is stable/in acceptable range for any [...] Hyperlipidemia associated with type 2 diabetes danisha duke 04/08/2019 Assessment & Plan (06/14/2024 12:34 AM CDT): Encouraged patient to follow low fat/low chol diet like the Mediterranean diet. Increase good fats in the diet. Increase exercise. Monitor labs as needed. Stressed importance of continued A1c control to minimize the laborer marine terminal effects of diabetes. Bring accuchecks to office [...] daily Assessment & Plan (09/22/2023 11:05 AM POWERTRAIN DESIGN ENGINEER): Encouraged patient to follow low fat/low chol [...] day. Assessment & Plan (12/22/2022 11:00 PM POWERTRAIN DESIGN ENGINEER): Encouraged patient to follow low fat/low chol [...] statin Assessment & Plan (09/11/2022 3:20 PM POWERTRAIN DESIGN ENGINEER): Encouraged patient to follow low fat/low chol [...] and proper use. Encouraged starting Co Q10 duuq-mdf-odrbqch with it. Will monitor liver function Assessment [...] statin, but will hold until evaluated by commercial census taker. Assessment & Plan (02/12/2021 9:04 AM CDT): Encouraged patient to follow fat/low chol diet like the Mediterranean diet. Increase good fats in the diet. Increase exercise. Monitor labs as needed. Will hold crestor due to elevated LFTs Assessment & Plan (10/13/2020 4:35 PM POWERTRAIN DESIGN ENGINEER): Encouraged patient to follow fat/low chol diet like the Mediterranean diet. Increase good fats in the diet. Increase exercise. Monitor labs as needed. Start statin. Reviewed risks, benefit, alternatives, side effects and proper use. Start coq10 otc Assessment & Plan (07/25/2020 8:56 AM CDT): Stressed importance of continued A1c control to minimize the alf effects of diabetes. Bring accuchecks to office when instructed to do so. Check A1c about every 3-6 months. Take medication as prescribed. Get annual eye exam. Encouraged ASHA/Statin if able to tolerate. Encouraged weight control and encouraged diabetic diet and exercise. Doing well with diet changes. Recheck labs in late Sep and oct Assessment & Plan (06/24/2020 10:56 AM CDT): [...] complication, without long-term current use of insulin ([facility]) 04/08/2019 Assessment & Plan (06/14/2024 12:34 AM CDT): Stressed importance of continued A1c control to minimize the alf effects of diabetes. Bring accuchecks to office [...] of continued A1c control to minimize the laborer marine terminal effects of diabetes. Bring accuchecks to office [...] of continued A1c control to minimize the laborer marine terminal effects of diabetes. Bring accuchecks to office [...] use. Assessment & Plan (09/22/2023 11:05 AM POWERTRAIN DESIGN ENGINEER): Stressed importance of continued A1c control to minimize the laborer marine terminal effects of diabetes. Bring accuchecks to office [...] of continued A1c control to minimize the laborer marine terminal effects of diabetes. This includes but is [...] mg. Assessment & Plan (12/22/2022 11:03 PM POWERTRAIN DESIGN ENGINEER): Stressed importance of continued A1c control to minimize the laborer marine terminal effects of diabetes. Bring accuchecks to office when instructed to do so. Check A1c about every 3-6 months. Take medication as prescribed. Get annual eye exam. Encouraged ASHA/Statin if able to tolerate. Encouraged weight control and encouraged diabetic diet and exercise. Continue with Rybelsus 14 Assessment & Plan (09/11/2022 3:21 PM POWERTRAIN DESIGN ENGINEER): Stressed importance of continued A1c control to minimize the alf effects of diabetes. Bring accuchecks to office [...] of continued A1c control to minimize the laborer marine terminal effects of diabetes. Bring accuchecks to office [...] of continued A1c control to minimize the alf effects of diabetes. Bring accuchecks to office [...] addressed. Assessment & Plan (10/13/2020 4:36 PM POWERTRAIN DESIGN ENGINEER): Stressed importance of continued A1c control to minimize the laborer marine terminal effects of diabetes. Bring accuchecks to office [...] of continued A1c control to minimize the laborer marine terminal effects of diabetes. Bring accuchecks to office when instructed to do so. Check A1c about every 3-6 months. Take medication as prescribed. Get annual eye exam. Encouraged ASHA/Statin if able to tolerate. Encouraged weight control and encouraged diabetic diet and exercise. Doing well with diet changes. Recheck labs in late Sep and oct Assessment & Plan (06/24/2020 10:52 AM CDT): This is a significant, separately identifiable problem that was evaluated and managed on the same day as the wellness exam New Diagnosis Diabetes. Discussed with patient at length diabetes, pathogenesis, laborer marine terminal sequela, end organ damage, diet/exercise/weight loss, and [...] feet on a regular basis to avoid laborer marine terminal problems. Offered referral to putty tinter maker. She would prefer to not start medication [...] --- Dr. Marcelino did last colonosocpy in 2019-->2023 Assessment & Plan (02/15/2024 3:57 PM CDT): Last colonoscopy in 2018. Next 1 will be in July of 2024. Will make referral to Dr. Busch's office. Resolved Problems Problem Noted Date Diagnosed Date Resolved Date Controlled type 2 diabetes m ellitus with hyperglycemia, without long-term current use of insulin 02/15/2024 02/15/2024 Obesity (BMI 30-39.9) 01/30/20244 Memory difficulty 05/19/2023 06/14/2024 Assessment & Plan [...] screenings. Assessment & Plan (12/22/2022 11:03 PM POWERTRAIN DESIGN ENGINEER): Encouraged healthy lifestyle, good nutrition and exercise. Encouraged Calcium and Vitamin D and weight bearing exercise for bone health. Reviewed immunizations Reviewed age appropirate screenings. BMI 40.0-44.9, adult 12/22/2022 023 Assessment & Plan (12/22/2022 11:03 PM POWERTRAIN DESIGN ENGINEER): Discussed the patient's BMI. The BMI is [...] 02/15/2024 Assessment & Plan (09/22/2023 8:13 AM POWERTRAIN DESIGN ENGINEER): Discussed the patient's BMI. The BMI is above average. BMI management plan is completed. BMI Follow-up includes: nutrition counseling, exercise counseling and education provided. Assessment & Plan (12/12/2022 8:38 AM POWERTRAIN DESIGN ENGINEER): Discussed the patient's BMI. The BMI is above average. BMI management plan is completed. BMI Follow-up includes: nutrition counseling, exercise counseling and education provided. Assessment & Plan (09/11/2022 3:22 PM POWERTRAIN DESIGN ENGINEER): Discussed the patient's BMI. The BMI is [...] hyperglycemia, without long-term current use of insulin ([facility]) ([facility]) 01/14/2022 2 Assessment & Plan (02/25/2022 12:50 AM CDT): Stressed importance of continued A1c control to minimize the laborer marine terminal effects of diabetes. Bring accuchecks to office [...] of continued A1c control to minimize the laborer marine terminal effects of diabetes. Bring accuchecks to office [...] complication, without long-term current use of insulin ([facility]) 04/30/2021 022 Assessment & Plan (01/14/2022 12:51 PM CDT): Stressed importance of continued A1c control to minimize the alf effects of diabetes. Bring accuchecks to office when instructed to do so. Check A1c about every 3-6 months. Take medication as prescribed. Get annual eye exam. Encouraged ASHA/Statin if able to tolerate. Encouraged weight control and encouraged diabetic diet and exercise. Continue metformin 500 mg b.i.d. Assessment & Plan (04/30/2021 12:35 AM CDT): Stressed importance of continued A1c control to minimize the alf effects of diabetes. Bring accuchecks to office [...] obesity with BMI of 4 5.0-49.9, adult ([facility]) 04/18/2021 01/14/2022 Assessment & Plan (04/18/2021 7:59 [...] 06/14/2024 Assessment & Plan (09/22/2023 11:05 AM POWERTRAIN DESIGN ENGINEER): Probably multifactorial. Check labs and followup to re-evaluate Assessment & Plan (05/19/2023 6:02 PM CDT): Fatigue is likely multifactorial. We will evaluate labs for any underlying abnormalities that the fatigue may be attributed to. Assessment & Plan (09/11/2022 3:22 PM POWERTRAIN DESIGN ENGINEER): Probably multifactorial. Check labs and followup to [...] assistance Assessment & Plan (10/13/2020 4:35 PM POWERTRAIN DESIGN ENGINEER): Probably multifactorial. Check labs and followup to re-evaluate Assessment & Plan (09/11/2020 9:42 AM POWERTRAIN DESIGN ENGINEER): We discussed with the severity and abrupt onset of the fatigue that a covid 19 test is warranted to exclude the virus. She was given info about [place] testing site and will report there today for test. Will hold lab order at [facility] - if covgiuliana 19 test is negative, she will pursue [...] provided. Skin lesion of face 07/25/2020 06/14/20 Assessment & Plan (07/25/2020 8:55 AM CDT): [...] 07/28/2019 Assessment & Plan (10/13/2020 4:35 PM POWERTRAIN DESIGN ENGINEER): Encouraged vaccine. Reviewed risks/ benefits. Patient refuses [...] provided. Assessment & Plan (11/17/2019 4:03 PM POWERTRAIN DESIGN ENGINEER): Obesity is unchanged. Discussed the patient's BMI. [...] 021 Assessment & Plan (10/13/2020 4:34 PM POWERTRAIN DESIGN ENGINEER): Obesity is unchanged. Discussed the patient's BMI. [...] provided. Assessment & Plan (11/17/2019 4:02 PM POWERTRAIN DESIGN ENGINEER): Obesity is unchanged. Discussed the patient's BMI. [...] saboteurs; non-food rewards, etc). Encouraged increased exercise. Immunizations Name Administration Dates Next Due Influenza, Unspecified 11/03/2023(Deferr ed: Patient Refused),11/03/2023(Deferred: Patient Refused),09/22/2023(Deferred: Patient Refused),12/12/2022(Deferred: Patient Refused),11/03/2022(Deferred: Patient Refused),01/14/2022(Deferred: Patient Refused),11/03/2021(Deferred: Patient Refused),11/03/2020(Deferred: Patient Refused),07/25/2020(Deferred: Patient Refused),10/03/2019(Deferred: Patient Refused),08/03/2018(Deferred: Patient Refused) Pneumococcal Conjugate PCV 13 01/12/2019 Pneumococcal Polysaccharide PPV23 01/25/2008 Tdap 12/19/2010 Social History Tobacco Use Types Packs/Day Years [...] on file Legal Sex Female 6:23 PM POWERTRAIN DESIGN ENGINEER Gender Identity Not on file Sexual Orientation Not on file Occupation Industry Job Start Date Job End Date Retired Not on file Not on file Not on file Last Filed Vital Signs [...] 07/07/2024 8:40 AM CDT Plan of Treatment Not on file Procedures Procedure Name Priority Date/Time Associated Diagnosis Comments HM COLONOSCOPY Routine 11/16/2024 10:02 AM POWERTRAIN DESIGN ENGINEER URINE CULTURE Routine 10/23/2024 10:12 AM POWERTRAIN DESIGN ENGINEER Dysuria VITAMIN B12 Routine 10/23/2024 10:11 AM POWERTRAIN DESIGN ENGINEER Hypertension associated with diabetes (HCC) TSH Routine 10/23/2024 10:11 AM POWERTRAIN DESIGN ENGINEER Fatigue, unspecified type LIPID PANEL Routine 10/23/2024 10:11 AM POWERTRAIN DESIGN ENGINEER Hypertension associated with diabetes (HCC) HEMOGLOBIN A1C Routine 10/23/2024 10:11 AM POWERTRAIN DESIGN ENGINEER Hypertension associated with diabetes (HCC) COMPREHENSIVE METABOLIC PANEL Routine 10/23/2024 10:11 AM POWERTRAIN DESIGN ENGINEER Hypertension associated with diabetes (HCC) CBC WITH AUTO DIFFERENTIAL Routine 10/23/2024 10:11 AM POWERTRAIN DESIGN ENGINEER Hypertension associated with diabetes (HCC) ALBUMIN CREATININE RATIO, URINE Routine 10/23/2024 10:11 AM POWERTRAIN DESIGN ENGINEER Hypertension associated with diabetes (HCC) SCREENING MAMMOGRAM BILATERAL W JACQUES Schedule Routine, Read Routine (OP Routine) 10/20/2024 1:07 PM POWERTRAIN DESIGN ENGINEER Breast cancer screening by mammogram HM DIABETES EYE EXAM Routine 04/23/2024 1:47 PM CDT DEXA AXIAL SKELETON BONE DENSITY 1 OR MORE SITES Schedule Routine, Read Routine (OP Routine) 08/07/2022 Menopause HEPATITIS PANEL, ACUTE Routine 02/26/2021 8:07 AM CDT from Last 3 Months or Most Recently Relevant to Health Maintenance Results * (ABNORMAL) COLONOSCOPY (11/16/2024 10:02 AM POWERTRAIN DESIGN ENGINEER) Scribed Colonoscopy Abnormal Historical Provider HEALTH MAINTENANCE Final Result * Urine culture Urine, clean voided (10/23/2024 10:12 AM POWERTRAIN DESIGN ENGINEER) Pathologist [facility] Urine culture Final report [facility] - 01 Result 1 Comment [facility] - 01 Comment: Mixed urogenital sid 10,000-25,000 colony forming units per mL Urine, clean voided 10/23/2024 10:12 AM POWERTRAIN DESIGN ENGINEER 10/23/2024 Comment:UC Narrative [facility] - 10/25/2024 7:35 AM POWERTRAIN DESIGN ENGINEER Performed at: ?? - [facility] [address] ??[id number] Milk Truck Driver: Enrique Dunne PhD, Phone: ??[phone] Marah WELCH LAB MICROBIOLOGY - GENERAL ORDERABLES Final Result [facility] - 01 * (ABNORMAL) CBC with auto differential (10/23/2024 10:11 AM POWERTRAIN DESIGN ENGINEER) Pathologist [facility] WBC 10.2 3.4 - 10.8 x10E3/uL [facility] [...] - 01 Blood 10/23/2024 10:1 1 AM POWERTRAIN DESIGN ENGINEER 10/23/2024 Narrative [facility] - 10/24/2024 7:35 AM POWERTRAIN DESIGN ENGINEER Performed at: ??01 - [facility] [address] ??[id number] Milk Truck Driver: Enrique Dunne PhD, Phone: ??[phone] us Marah WELCH LAB BLOOD ORDERABLES Final Result [facility] - 01 * Albumin Creatinine Ratio, Urine (10/23/2024 10:11 AM POWERTRAIN DESIGN ENGINEER) Creatinine ur 105.5 Not Estab. mg/dL [facility] - 01 Microalbumin, ur 12.3 Not Estab. ug/mL [facility] - 01 Microalbumin/cre at ratio 12 0 - 29 mg/g creat [facility] - 01 Comment: ? Normal: ?0 - ??29 ? Moderately increased: 30 - 300 ? Severely increased: ? >300 Urine 10/23/2024 10:1 1 AM POWERTRAIN DESIGN ENGINEER 10/23/2024 Narrative [facility] - 10/26/2024 7:36 AM POWERTRAIN DESIGN ENGINEER Performed at: ??01 - [facility] ??[id number] Milk Truck Driver: Enrique Dunne PhD, Phone: ??[phone] Marah WELCH LAB URINE ORDERABLES Final Result Performing Organization Address [facility] de Phone Number [facility] - 01 * TSH (10/23/2024 10:11 AM POWERTRAIN DESIGN ENGINEER) Pathologist [facility] TSH 2.500 0.450 - 4.500 uIU/mL [facility] - Blood 10/23/2024 10:1 1 AM POWERTRAIN DESIGN ENGINEER 10/23/2024 Narrative [facility] - 10/24/2024 9:35 AM POWERTRAIN DESIGN ENGINEER Performed at: ??01 - [facility] ??[id number] Milk Truck Driver: Enrique Dunne PhD, Phone: ??[phone] Marah WELCH LAB BLOOD ORDERABLES Final Result Performing Organization Address [facility] de Phone Number [facility] - 01 * (ABNORMAL) Hemoglobin A1c (10/23/2024 10:11 AM POWERTRAIN DESIGN ENGINEER) Hgb A1C 7.1(H) 4.8 - 5.6 % [facility] - 01 Comment: ? Prediabetes: 5.7 - 6.4 ? Diabetes: >6.4 ? Glycemic control for adults with diabetes: <7.0 Blood 10/23/2024 10:1 1 AM POWERTRAIN DESIGN ENGINEER 10/23/2024 Narrative [facility] - 10/24/2024 7:35 AM POWERTRAIN DESIGN ENGINEER Performed at: ??01 - [facility] ??[id number] Milk Truck Driver: Enrique Dunne PhD, Phone: ??[phone] Marah WELCH LAB BLOOD ORDERABLES Final Result Performing Organization Address City/[facility]/ZIP Co de Phone Number [facility] - * Vitamin B12 (10/23/2024 10:11 AM POWERTRAIN DESIGN ENGINEER) Vitamin B12 304 232 - 1,245 pg/mL [facility] - 01 Blood 10/23/2024 10:1 1 AM POWERTRAIN DESIGN ENGINEER 10/23/2024 Narrative [facility] - 10/24/2024 7:35 AM POWERTRAIN DESIGN ENGINEER Performed at: ??01 - [facility] ??[id number] Milk Truck Driver: Enrique Dunne PhD, Phone: ??[phone] Marah WELCH LAB BLOOD ORDERABLES Final Result Performing Organization Address City/[facility]/ZIP Co de Phone Number [facility] - * (ABNORMAL) Lipid panel (10/23/2024 10:11 AM POWERTRAIN DESIGN ENGINEER) Cholesterol 221(H) 100 - 199 mg/dL [facility] - 01 Triglycerides 159(H) 0 - 149 mg/dL [facility] - 01 HDL Cholesterol 41 >39 mg/dL [facility] - 01 VLDL 29 5 - 40 mg/dL [facility] - 01 LDL, calculated 151(H) 0 - 99 mg/dL [facility] - 01 Blood 10/23/2024 10:1 1 AM POWERTRAIN DESIGN ENGINEER 10/23/2024 Narrative [facility] - 10/24/2024 9:35 AM POWERTRAIN DESIGN ENGINEER Performed at: ??01 - [facility] [address] ??[id number] Milk Truck Driver: Enrique Dunne PhD, Phone: ??[phone] Marah WELCH LAB BLOOD ORDERABLES Final Result [facility] - 01 * (ABNORMAL) Comprehensive metabolic panel (10/23/2024 10:11 AM POWERTRAIN DESIGN ENGINEER) Pathologist [facility] Glucose 138(H) 70 - 99 mg/dL [facility] [...] - 01 Blood 10/23/2024 10:1 1 AM POWERTRAIN DESIGN ENGINEER 10/23/2024 Narrative [facility] - 10/24/2024 9:35 AM POWERTRAIN DESIGN ENGINEER Performed at: ??01 - [facility] [address] ??[id number] Milk Truck Driver: Enrique Dunne PhD, Phone: ??[phone] Marah WELCH LAB BLOOD ORDERABLES Final Result [facility] - 01 * Screening Mammogram Bilateral W Jacques (10/20/2024 1:07 PM POWERTRAIN DESIGN ENGINEER) Anatomical Region Laterality Modality Breast Bilateral Mammography Marah WELCH IMG MAMMO PROCEDURES Final Result * HM DIABETES EYE EXAM (04/23/2024 1:47 PM CDT) SCRIBED DIABETIC DILATED EYE EXAM Normal Result [facility] Historical Provider HEALTH MAINTENANCE Edited Result - Final * Dexa Axial Skeleton Bone Density 1 or 2 Site (08/07/2022) Anatomical Region Laterality Modality Body N/A Radiographic Kelin ging Marah WELCH IMG DXA PROCEDURES Final R esult * Hepatitis panel, acute (02/26/2021 8:07 AM CDT) Hep A IgM NON-REACTI VE NON-REACT LENNY [facility] Comment: For additional information, please refer to http://iTracs.My Point...Exactly/faq/ZZK884 (This link is being provided for informational/ [...] a test for HCV RNA (test code 38913) is suggested. For additional information please refer to http://iTracs.My Point...Exactly/faq/BWR65w8 (This link is being provided for informational/ educational purposes only.) 02/26/2021 8:07 AM CDT 02/26/2021 8:11 AM CDT Marah WELCH LAB MICROBIOLOGY - GENERAL ORDERABLES Final Result Performing Organization Address City/State/ZIP Co wy Phone Number [facility] [address] [phone] from Last 3 Months or Most Recently Relevant to Health Maintenance Insurance [facility] MEDICARE [facility] [place] [address] T[employer] MEDICARE GOLD Care Teams Tilting Head Band Sawyer Relationship Specialty Start Date End Date Marah Jonas PA [address] [place] [address] PCP - General Internal Medicine 04/05/19
--- OUTSIDE RECORDS SUMMARY | 2024-11-23 05:13 | XMS_ITS | Encounter Summary ---
Author Organization [facility] Address [address] [place] [address] Care Team Providers Care Manager Site Name Role Phone Marah Jonas Primary Care Provider +1- [phone] Reason for Referral * Consultation (Routine) - Closed Specialty Diagnoses / Procedures Referred By Contnestor navarro Referred To Contact Gastroenterology Diagnoses History of colon cancer Marah Jonas PA [address] [place] [address] Phone: tel: fax: Chung Hernandez MD [address] [place] [address] Phone: tel: fax: Referral ID Status Reason Start Date Expiration Date V isits Requested Visits Authorized [id number] Closed Specialty Services Required 02/15/2024 03/16/2025 1 1 Question Answer Please select the performing region: External Order [171] To provider: CHUNG HERNANDEZ [[id number]] # of visits: [address] Mracelino did her last one 07/2019 so due to repeat in 07/2024. Reason for Visit * Reason Comments Wellness Visit Pt would like to dis cuss labs and have A1c checked. Encounter Details Date Type Department Care Team (Late st Contact Info) Description 01/30/2024 9:00 AM CDT Office Visit [facility] Family Medicine [address] [place] [address] Marah Jonas PA [address] [place] [address] Annual physical exam (Primary Dx); Type 2 diabetes mellitus with hyperglycemia, without long-term current use of insulin (CMS/HCC) (HCC); Hypertension associated with diabetes (HCC); Low serum vitamin B12; Hyperlipidemia associated with type 2 diabetes mellitus (HCC); History of colon cancer; BMI 40.0-44.9, adult (HCC); Morbid obesity (HCC) [...] PHQ-2 Answer Date Recorded PHQ-2 Total Score 1 01/30/2024 Personal Safety Answer Date Recorded Getting School Help Needed Not on file 10/15 Comments Unknown Sex and Gender Information Value Date Recorded Sex Assigned at Not on file Legal Sex Female 6:23 PM NUTRITION COORDINATOR Gender Identity Not on file Sexual Orientation Not on file Occupation Industry Job Start Date Job End Date Retired Not on file Not on file Not on file documented as of this encounter Last Filed Vital Signs Vital Sign Reading Time Taken Comments Blood Pressure 128/68 01/30/2024 8:17 AM CDT Pulse 76 01/30/2024 8:17 AM CDT Temperature 36.8 ??C (98.2 ??F) 01/30/2024 8:17 AM CD T Respiratory Rate - - Oxygen Saturation 98% 01/30/2024 8:17 AM CDT Inhaled Oxygen Concentration - - Weight 114.2 kg (251 lb 11.2 oz) 01/30/2024 8:17 AM CDT Height 162.6 cm (5' 4 ) 01/30/2024 8:17 AM CDT Body Mass Index 43.2 01/30/2024 8:17 AM CDT documented in this encounter Patient Instructions * Patient Instructions* Marah Jonas PA - 01/30/2024 9:00 AM CDT Vitamin B12 is low. Start B12 1,000mcg daily available over the counter. Increase Crestor to 20mg daily. (Take TWO 10mg tabs until gone and then will be back to ONE 20mg tab daily. Start Farxiga 5mg samples. Will work on getting patient assistance for the 10mg documented in this encounter Ordered Prescriptions Prescription Sig Dispense Quantity Refills Last Filled Start Date End Date clotrimazole-betam ethasone (LOTRISONE) cream Apply topically 2 (two) times a day 30 g 01/30/2024 4 fluconazole (DIFLUCAN) 150 mg tablet Take 1 tablet (150 mg total) by mouth once for 1 dose 1 tablet 01/30/2024 4 dapagliflozin propanediol (FARXIGA) 10 mg tablet Take 1 tablet (10 mg total) by mouth daily 90 tablet 1 01/30/2024 4 rosuvastatin (CRESTOR) 20 mg tablet Take 1 tablet (20 mg total) by mouth daily 90 tablet 1 01/30/2024 4 documented in this encounter Progress Notes * Marah Jonas PA - 01/30/2024 9:00 AM CDT Images from the original note were not included. Subjective/Objective Patient ID: Mandy Oconnor is a 78 y.o. female. Chief Complaint Wellness Visit (Pt would like to discuss labs and have A1c checked.) HPI Patient presents for wellness exam and followup chronic concerns. HTN - Lisinopril 2.5 and Amlodipine 10 HLD - Crestor 10 DM - Rybelsus 14--tolerating well (using patient assistance) A1c 09/2023 was 7.4 01/22/2023 -- 8.3 Patient admits her diet may contribute but she is still working hard to control. Pneumonia 13 and 23 are done Tdap 2010 DM eye 05/2023 Mamm 10/2023 DXA 08/2022 Colonoscopy -Dr Marcelino 2018 --->07/2024 (history polyps and colon cancer) Lab Results Component Value Date WBC 10.5 01/23/2024 HGB 15.4 01/23/2024 HCT 46.1 01/23/2024 MCV 88 01/23/2024 LABPLAT 285 01/23/2024 Chemistry Lab Results Component Value Date SODIUM 137 01/23/2024 POTASSIUM 4.1 08/28/2022 CHLORIDE 99 01/23/2024 CO2 22 01/23/2024 ANIONGAP 11 06/26/2021 BUNSER 16 01/23/2024 CREATININE 0.69 01/23/2024 GLUCOSE 190 (H) 01/23/2024 CALCIUM 9.7 01/23/2024 BILITOT 0.5 01/23/2024 PROTEIN 6.9 01/23/2024 ALBUMIN 4.3 01/23/2024 GFRNAA >90 06/26/2021 ALKPHOS 113 01/23/2024 AST 16 01/23/2024 ALT 19 01/23/2024 Lab Results Component Value Date HGBA1C 8.3 (H) 01/23/2024 Lab Results Component Value Date CHOL 220 (H) 01/23/2024 CHOL 199 09/17/2023 CHOL 137 05/13/2023 Lab Results Component Value Date HDL 39 (L) 01/23/2024 HDL 38 (L) 09/17/2023 HDL 34 (L) 05/13/2023 Lab Results Component Value Date LDLCALC 148 (H) 01/23/2024 LDLCALC 127 (H) 09/17/2023 LDLCALC 73 05/13/2023 LDL 93 08/28/2022 LDL 138 (H) 01/15/2022 LDL 155 (H) 05/18/2021 Lab Results Component Value Date TRIG 182 (H) 01/23/2024 TRIG 188 (H) 09/17/2023 TRIG 178 (H) 05/13/2023 No results found for: POCCHDLR No results found for: POCNONHDL No results found for: POCCHLPL Lab Results Component Value Date TSH 3.250 01/23/2024 Lab Results Component Value Date VITB12 269 01/23/2024 Review of Systems See HPI Vitals: 01/30/24 0817 BP: 128/68 BP Location: Right arm Patient Position: Sitting Pulse: 76 Temp: 36.8 ??C (98.2 ??F) TempSrc: Oral SpO2: 98% Weight: 114.2 kg (251 lb 11.2 oz) Height: 162.6 cm (5' 4 ) [...] Diagnoses and all orders for this visit: Annual physical exam (Z00.00) (Primary) Assessment & Plan: Encouraged healthy lifestyle, good nutrition and exercise. Encouraged Calcium and Vitamin D and weight bearing exercise for bone health. Reviewed immunizations Reviewed age appropirate screenings. Type 2 diabetes mellitus with hyperglycemia, without long-term current use of insulin ([facility]) (HCC) (E11.65) Assessment & Plan: This is a significant, separately identifiable problem that was evaluated and managed on the same day as the wellness exam Stressed importance of continued A1c control to minimize the fci effects of diabetes. Bring accuchecks to office when instructed to do so. Check A1c about every 3-6 months. Take medication as prescribed. Get annual eye exam. Encouraged ASHA/Statin if able to tolerate. Encouraged weight controland encouraged diabetic diet and exercise. A1c still [...] time dose and Lotrisone for prn use. Orders: - Comprehensive metabolic panel; Future Hypertension associated with diabetes (HCC) (E11.59, I15.2) Assessment & Plan: Bp is stable/in acceptable range for any co-morbidities. Encouraged to limit sodium intake and exercise for weight control. Continue lisinopril 2.5 and amlodipine 10 mg daily Low serum vitamin B12 (E53.8) Assessment & Plan: This is a significant, separately identifiable problem that was evaluated and managed on the same day as the wellness exam Vitamin B12 is low. Start B12 1,000mcg daily available over the counter. Hyperlipidemia associated with type 2 diabetes mellitus (HCC) (E11.69, E78.5) Assessment & Plan: This is a significant, [...] 1 of the 20 mg tablets daily History of colon cancer (Z85.038) Assessment & Plan: Last colonoscopy in 2018. Next 1 will be in July of 2024. Will make referral to Dr. Busch's office. BMI 40.0-44.9, adult (HCC) (Z68.41) Assessment & Plan: Discussed the patient's BMI. The BMI is above average. BMI management plan is completed. BMI Follow-up includes: nutrition counseling, exercise counseling and education provided. Morbid obesity (HCC) (E66.01) Assessment & Plan: Discussed the patient's BMI. The BMI is above average. BMI management plan is completed. BMI Follow-up includes: nutrition counseling, exercise counseling and education provided. Other orders - rosuvastatin (CRESTOR) 20 mg tablet; Take 1 tablet (20 mg total) by mouth daily - dapagliflozin propanediol (FARXIGA) 10 mg tablet; Take 1 tablet (10 mg total) by mouth daily - fluconazole (DIFLUCAN) 150 mg tablet; Take 1 tablet (150 mg total) by mouth once for 1 dose - clotrimazole-betamethasone (LOTRISONE) cream; Apply topically 2 (two) times a day *This note is dictated using [employer] voice recognition software, variances in spelling and vocabulary are possible and unintentional.* Marah Jonas PA-C documented in this encounter Miscellaneous Notes * Assessment & Plan Note - Marah Jonas PA - 02/15/2024 4:07 PM CDT Associated Problem(s): Low serum vitamin B12 This is a significant, separately identifiable problem that was evaluated and managed on the same day as the wellness exam Vitamin B12 is low. Start B12 1,000mcg daily available over the counter. * Assessment & Plan Note - Marah Jonas PA - 02/15/2024 4:04 PM CDT Associated Problem(s): Controlled type 2 diabetes mellitus without complication, without long-term current use of insulin ([facility]) ([facility]) This is a significant, separately identifiable problem that was evaluated and managed on the same day as the wellness exam Stressed importance of continued A1c control to minimize the fci effects of diabetes. Bring accuchecks to office when instructed to do so. Check A1c about every 3-6 months. Take medication as prescribed. Get annual eye exam. Encouraged ASHA/Statin if able to tolerate. Encouraged weight controland encouraged diabetic diet and exercise. A1c still [...] time dose and Lotrisone for prn use. * Assessment & Plan Note - Marah Jonas PA - 02/15/2024 4:01 PM CDT Associated Problem(s): Morbid obesity (HCC) Discussed the patient's BMI. The BMI is above average. BMI management plan is completed. BMI Follow-up includes: nutrition counseling, exercise counseling and education provided. * Assessment & Plan Note - Marah Jonas PA - 02/15/2024 4:00 PM CDT Associated Problem(s): Annual physical exam (Resolved 06/14/2024) Encouraged healthy lifestyle, good nutrition and exercise. Encouraged Calcium and Vitamin D and weight bearing exercise for bone health. Reviewed immunizations Reviewed age appropirate screenings. * Assessment & Plan Note - Marah Jonas PA - 02/15/2024 4:00 PM CDT Associated Problem(s): BMI 40.0-44.9, adult (HCC) Discussed the patient's BMI. The BMI is above average. BMI management plan is completed. BMI Follow-up includes: nutrition counseling, exercise counseling and education provided. * Assessment & Plan Note - Marah Jonas PA - 02/15/2024 4:00 PM CDT Associated Problem(s): Hypertension associated with diabetes (HCC) Bp is stable/in acceptable range for any co-morbidities. Encouraged to limit sodium intake and exercise for weight control. Continue lisinopril 2.5 and amlodipine 10 mg daily * Assessment & Plan Note - Marah Jonas PA - 02/15/2024 3:59 PM CDT Associated Problem(s): Hyperlipidemia associated with type 2 diabetes mellitus (HCC) This is a significant, separately identifiable problem [...] 1 of the 20 mg tablets daily * Assessment & Plan Note - Marah Jonas PA - 02/15/2024 3:57 PM CDT Associated Problem(s): History of colon cancer Last colonoscopy in 2018. Next 1 will be in July of 2024. Will make referral to Dr. Busch's office. documented in this encounter Plan of Treatment Scheduled Referrals Name Type Priority Associated Diagnoses Order Schedule Ambulatory referral to Gastroenterology Outpatient Referral Routine History of colon cancer Expected: 02/29/2024 (Approximate), Expires: 02/14/2025 documented as of this encounter Procedures Procedure Name Priority Date/Time Associated Diagnosis Comments COMPREHENSIVE METABOLIC PANEL Routine 03/06/2024 8:58 AM CDT Type 2 diabetes mellitus with hyperglycemia, without long-term current use of insulin (CMS/HCC) (HCC) documented in this encounter Results * (ABNORMAL) Comprehensive metabolic panel (03/06/2024 8:58 AM CDT) Glucose 145(H) 70 - 99 mg/dL [facility] - 01 BUN 12 8 - 27 mg/dL [facility] - 01 Creatinine, Serum 0.71 0.57 - 1.00 mg/dL [facility] - 01 eGFR 88 >59 mL/min/1.7 3 [facility] - 01 BUN/creat ratio 17 12 - 28 [facility] - 01 Sodium 139 134 - 144 mmol/L [facility] - 01 Potassium, sr 5.2 3.5 - 5.2 mmol/L [facility] - 01 Chloride 102 96 - 106 mmol/L [facility] - 01 CO2 22 20 - 29 mmol/L [facility] - 01 Calcium 10.1 8.7 - 10.3 mg/dL [facility] - 01 Protein, sr 6.8 6.0 - 8.5 g/dL [facility] - 01 Albumin 4.5 3.8 - 4.8 g/dL [facility] - 01 Globulin, Total 2.3 1.5 - 4.5 g/dL [facility] - 01 A/G Ratio 2.0 1.2 - 2.2 [facility] - 01 Bilirubin, Total 0.4 0.0 - 1.2 mg/dL [facility] - 01 Alk phos 102 44 - 121 IU/L [facility] - 01 AST 17 0 - 40 IU/L [facility] - 01 ALT 18 0 - 32 IU/L [facility] - 01 Blood 03/06/2024 8:58 AM CDT 03/06/2024 Narrative [facility] - 03/07/2024 7:35 AM CDT Performed at: ??01 - [facility] [address] ??[id number] Cash Sales Audit Clerk: Enrique Dunne PhD, Phone: ??[phone] Marah WELCH LAB BLOOD ORDERABLES Final Result [facility] - 01 documented in this encounter Visit Diagnoses Diagnosis Annual physical exam- Primary Routine general medical examination at a health care facility Type 2 diabetes mellitus with hyperglycemia, without long-term current use of insulin (HCC) Hypertension associated with diabetes (HCC) Unspecified essential hypertension Low serum vitamin B12 Hyperlipidemia associated with type 2 diabetes mellitus (HCC) History of colon cancer Personal history of malignant neoplasm of large intestine BMI 40.0-44.9, adult (HCC) Morbid obesity (HCC) Morbid obesity documented in this encounter Discontinued Medications Medication Sig Discontinue Reason Start Date End Da te rosuvastatin (CRESTOR) 10 mg tablet Take 1 tablet (10 mg total) by mouth daily 09/22/2023 01/30/2024 documented as of this encounter Care Teams Manager Site Relationship Specialty Start Date End Date Marah Jonas PA [address] [facility] [address] [place] [address] PCP - General Internal Medicine 04/05/19 documented as of this encounter
--- OUTSIDE RECORDS SUMMARY | 2024-11-23 05:13 | XMS_ITS | Encounter Summary ---
Author Organization [facility] Healthcare Address [address] [place] [address] Care Team Providers Care Cardiac Tech Name Role Phone Marah Jonas Primary Care Provider +1- [phone] Reason for Visit * Reason Onset Date Comments Medication Request 11/06/2023 Encounter Details Date Type Department Care Team (Late st Contact Info) Description 11/06/2023 Telephone [facility] Family Medicine [address] [place] [address] Marah Jonas PA [address] [place] [address] Medication Request Social History Tobacco [...] on file Legal Sex Female 6:23 PM ALLOPATHIC DOCTOR Gender Identity Not on file Sexual Orientation Not on file Occupation Industry Job Start Date Job End Date Retired Not on file Not on file Not on file documented as of this encounter Miscellaneous Notes * Telephone Encounter - Myla Nava MA - 11/06/2023 11:01 AM CST Spoke to patient. This letter was sent to her before I faxed a copy of her insurance card to [employer]. Will check with the company and make sure they received the fax. PATHIC DOCTOR * Telephone Encounter - Nikki Mace - 11/06/2023 8:24 AM CST Medical Question/Miscellaneous Caller???s Concern: Patient calling to speak to Myla in regards to letter she received regarding a letter she received, stating that the type of insurance coverage she has is not clear. Please reach back out to the patient. Patient says she will be unavailable today until around 10:30-10:45 am Does message need to be routed? Yes-Action Needed PATHIC DOCTOR documented in this encounter Plan of Treatment Not on file documented as of this encounter Visit Diagnoses Not on filedocumented in this encounter Care Teams Cardiac Tech Relationship Specialty Start Date End Date Marah Jonas PA [address] [facility] [address] [place] [address] PCP - General Internal Medicine 04/05/19 documented as of this encounter
--- OUTSIDE RECORDS SUMMARY | 2024-11-23 05:13 | XMS_ITS | Encounter Summary ---
Author Organization [facility] Healthcare Address [address] [place] [address] Care Team Providers Care Epoxy Specialist Name Role Phone Marah Jonas Primary Care Provider +1- [phone] Reason for Visit * Reason Onset Date Comments needs lab prior to 11/09 visit 10/19/2024 Encounter Details Date Type Department Care Team (Late st Contact Info) Description 10/19/2024 Telephone [facility] Family Medicine [address] [place] [address] Marah Jonas PA [address] [place] [address] needs lab prior to 11/09 visit Social History Tobacco Use Types Packs/Day Years [...] on file Legal Sex Female 6:23 PM SHEARING MACHINE 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 RING MACHINE FEEDER * Telephone Encounter - Cici Walker LPN - 10/20/2024 11:01 AM SHEARING MACHINE FEEDER Called and spoke to pt and reminded her to get labs and schedule DM Eye exam. Pt stated she would. Will pend message to check if pt got labs done. RING MACHINE FEEDER * Telephone Encounter - Marah Jonas PA - 10/19/2024 5:04 PM SHEARING MACHINE FEEDER Please call patient and remind to get labs/urine done prior to next appointment. DM Eye exam will be due in 04/2025. Encourage pt to schedule NOW. RING MACHINE FEEDER documented in this encounter Plan of Treatment Not on file documented as of this encounter Visit Diagnoses Not on filedocumented in this encounter Care Teams Epoxy Specialist Relationship Specialty Start Date End Date Marah Jonas PA [address] [facility] [address] [place] [address] PCP - General Internal Medicine 04/05/19 documented as of this encounter
--- OUTSIDE RECORDS SUMMARY | 2024-11-23 05:14 | XMS_ITS | Encounter Summary ---
Author Organization [facility] Group Address [address] [place] [address] Care Team Providers Care National Stormwater Leader Name Role Phone Marah Jonas Primary Care Provider +1- [phone] Reason for Visit * Reason Onset Date Comments Additional Services Or Orders 08/05/2022 Encounter Details Date Type Department Care Team (Late st Contact Info) Description 08/05/2022 Telephone [facility] Family Medicine [address] [facility] [address] [facility] [address] [place] [address] Marah Jonas PA [address] [place] [address] Additional Services Or Orders Social History Tobacco Use Types Packs/Day Years Used Date Smoking Tobacco: Never Smokeless Tobacco: Never Alcohol Use Standard Drinks/Week Comments Never 0 (1 standard drink = 0.6 oz pur e alcohol) AUDIT-C Answer Date Recorded Q1: How often do you have a drink containing alc ohol? Never 04/18/2021 Average Number of Drinks Not on file 021 Q3: How often do you have si x or more drinks on one occasion? Never 04/18/2021 PHQ-2 Answer Date Recorded PHQ-2 Total Score (If total score is 3 or more points, staff should administer the PHQ-9) 0 01/14/2022 Comments Unknown Sex and Gender Information Value Date Recorded Sex Assigned at Not on file Legal Sex Female 6:23 PM PRINTS AND DRAWINGS CURATOR Gender Identity Not on file Sexual Orientation Not on file Occupation Industry Job Start Date Job End Date Retired Not on file Not on file Not on file documented as of this encounter Miscellaneous Notes * Telephone Encounter - Cici Walker LPN - 08/05/2022 1:05 PM CDT Orders faxed as requested * Telephone Encounter - Marry Olguin - 08/05/2022 12:45 PM CDT Medical Question/Miscellaneous Caller???s Concern: [facility] called and said they would need Bone Density and Mammogram order faxed to them. Says pt is going in Friday to do these. Fax number is [phone] Attn: Kitty Caller???s Call back #: [phone] Does message need to be routed?Yes-Action Needed documented in this encounter Plan of Treatment Not on file documented as of this encounter Visit Diagnoses Not on filedocumented in this encounter Care Teams National Stormwater Leader Relationship Specialty Start Date End Date Marah Jonas PA [address] [place] [address] PCP - General Internal Medicine 04/05/19 documented as of this encounter
--- OUTSIDE RECORDS SUMMARY | 2024-11-23 05:14 | XMS_ITS | Encounter Summary ---
Author Organization [facility] Medical Group Address [address] [place] [address] Care Team Providers Care Stable Attendant Name Role Phone Marah Jonas Primary Care Provider +1- [phone] Encounter Details Date Type Department Care Team (Late st Contact Info) Description 08/09/2022 Orders Only [facility] Family Medicine [address] [facility] [address] [place] [address] Opal Morrison MA Social History Tobacco Use Types Packs/Day Years [...] on file Legal Sex Female 6:23 PM [facility] HOME HEALTH Gender Identity Not on file Sexual Orientation Not on file Occupation Industry Job Start Date Job End Date Retired Not on file Not on file Not on file documented as of this encounter Plan of Treatment Not on file documented as of this encounter Procedures Procedure Name Priority Date/Time Associated Diagnosis Comments MAMMOGRAPHY Routine 08/07/2022 documented in this encounter Results * HM MAMMOGRAPHY (08/07/2022) us Historical Provider HEALTH MAINTENANCE Final Result documented in this encounter Visit Diagnoses Not on filedocumented in this encounter Care Teams Stable Attendant Relationship Specialty Start Date End Date Marah Jonas PA [address] [facility] [address] [place] [address] PCP - General Internal Medicine 04/05/19 documented as of this encounter
--- OUTSIDE RECORDS SUMMARY | 2024-11-23 05:14 | XMS_ITS | Encounter Summary ---
Author Organization [facility] Medical Group Address [address] [place] [address] Care Team Providers Care Software Development Coordinator Name Role Phone Marah Jonas Primary Care Provider +1- [phone] Encounter Details Date Type Department Care Team (Late st Contact Info) Description 09/17/2022 Orders Only [facility] Family Medicine [address] [facility] [address] [place] [address] Provider, MD Joseluis [address] [place], [place] [id number] Social History Tobacco Use Types Packs/Day Years [...] points, staff should administer the PHQ-9) 0 09/11/2022 Comments Unknown Sex and Gender Information Value Date Recorded Sex Assigned at Not on file Legal Sex Female 6:23 PM PHOTOENGRAVING PROOFER Gender Identity Not on file Sexual Orientation Not on file Occupation Industry Job Start Date Job End Date Retired Not on file Not on file Not on file documented as of this encounter Plan of Treatment Not on file documented as of this encounter Procedures Procedure Name Priority Date/Time Associated Diagnosis Comments HM DIABETES EYE EXAM Routine 02/06/2022 documented in this encounter Results * DIABETES EYE EXAM (02/06/2022) us Historical Provider HEALTH MAINTENANCE Edited Result - Final documented in this encounter Visit Diagnoses Not on filedocumented in this encounter Care Teams Software Development Coordinator Relationship Specialty Start Date End Date Marah Jonas PA [address] [facility] [address] [place] [address] PCP - General Internal Medicine 04/05/19 documented as of this encounter
--- OUTSIDE RECORDS SUMMARY | 2024-11-23 05:14 | XMS_ITS | Encounter Summary ---
Author Organization [facility] Address [address] [place] [address] Care Team Providers Care Wheel Fitter Name Role Phone Marah Jonas Primary Care Provider [phone]- [phone] Reason for Visit * Reason Comments Medicare Wellness Pt presents today to go over lab results. Encounter Details Date Type Department Care Team (Late st Contact Info) Description 12/12/2022 8:00 AM SHADE CUTTER Office Visit [facility] Family Medicine [address] [place] [address] Marah Jonas PA [address] [facility] [address] [place] [address] Annual physical exam (Primary Dx); Hyperlipidemia associated with type 2 diabetes mellitus (HCC); Hypertension associated with diabetes (HCC); Type 2 diabetes mellitus without complication, without long-term current use of insulin (CMS/HCC) (HCC); Morbid obesity with BMI of 40.0-44.9, adult ([facility]) Social History Tobacco Use Types Packs/Day Years Used Date Smoking Tobacco: Never Smokeless Tobacco: Never Tobacco Cessation:Counseling Given: Not Answered Alcohol Use Standard Drinks/Week Comments Never 0 (1 standard drink = 0.6 oz pur e alcohol) AUDIT-C Answer Date Recorded Frequency of Alcohol Consumption Not on file 12/12/2022 Q2: How many drinks containi ng alcohol do you have on a typical day when you are drinking? Patient does not drink Q3: How often do you have si x or more drinks on one occasion? Never 12/12/2022 PHQ-2 Answer Date Recorded PHQ-2 Total Score (If total score is 3 or more points, staff should administer the PHQ-9) 0 12/12/2022 Comments Unknown Sex and Gender Information Value Date Recorded Sex Assigned at Not on file Legal Sex Female 6:23 PM SHADE CUTTER Gender Identity Not on file Sexual Orientation Not on file Occupation Industry Job Start Date Job End Date Retired Not on file Not on file Not on file documented as of this encounter Last Filed Vital Signs Vital Sign Reading Time Taken Comments Blood Pressure 152/92 12/12/2022 8:17 AM SHADE CUTTER Pulse 84 12/12/2022 8:17 AM SHADE CUTTER Temperature 36.7 ??C (98.1 ??F) 12/12/2022 8:17 AM CS T Respiratory Rate - - Oxygen Saturation 98% 12/12/2022 8:17 AM SHADE CUTTER Inhaled Oxygen Concentration - - Weight 114.4 kg (252 lb 4.8 oz) 12/12/2022 8:17 AM SHADE CUTTER Height 162.6 cm (5' 4.02 ) 12/12/2022 8:17 AM CS T Body Mass Index 43.29 12/12/2022 8:17 AM SHADE CUTTER documented in this encounter Ordered Prescriptions Prescription Sig Dispense Quantity Refills Last Filled Start Date End Date semaglutide (RYBELSUS) 14 mg tablet Take 1 tablet (14 mg total) by mouth registered phlebotomist part time before breakfast 30 tablet 12/12/2022 3 rosuvastatin (CRESTOR) 10 mg tablet Take 0.5 tablets (5 mg total) by mouth daily 90 tablet 1 12/12/2022 3 documented in this encounter Progress Notes * Marah Jonas PA - 12/12/2022 8:00 AM CST Images from the original note were not included. .PDICTATION Subjective/Objective Patient ID: Mandy Oconnor is a 77 y.o. female. Chief Complaint Medicare Wellness (Pt presents today to go over lab results.) HPI Patient presents for wellness exam and followup chronic concerns. Saw Dr. Nugent/hepatology last year. MRCP was negative for stones. LFTs returned back to low elevated -- probable fatty liver. Continues to follow with Dr. Nugent but she denies any further RUQ pain or sx.s No further followup needed She would like to see DERM as has many changes on the face. All skin bx were normal. Following annual Distinctive Derm HTN -- on amlodine/lisinopril---didn't continue the HCTZ due to increased urination. HLD - - Stopped statin due to leg pain Allergies stable with Flonase/prn antivert. Feeling much better. DM A1c is 8.6 05/2021. A1c. 12/09/2022 === 7.5 ON Rybelsus 14mg -- On statin and ASHA Mamm -- 08/2022 Pneumonia vaccines are UTD Butler - 07/2019 --->2023 Flu Vaccine -- DXA - due Review of Systems See HPI Vitals: 12/12/22 0817 BP: 152/92 BP Location: Right arm Patient Position: Sitting Pulse: 84 Temp: 36.7 ??C (98.1 ??F) TempSrc: Oral SpO2: 98% Weight: 114.4 kg (252 lb 4.8 oz) Height: 162.6 cm (5' 4.02 ) Physical Exam Vitals and nursing note [...] health. Reviewed immunizations Reviewed age appropirate screenings. Hyperlipidemia associated with type 2 diabetes mellitus [...] to take as much as she can toget the benefit of the statin Orders: - Hemoglobin A1c; Future - Comprehensive metabolic panel; Future - Lipid panel; Future Hypertension associated with diabetes (HCC) (E11.59, I15.2) Assessment & Plan: Bp is stable/in acceptable range for any co-morbidities. Encouraged to limit sodium intake and exercise for weight control. Continue amlodipine lisinopril Type 2 diabetes mellitus without complication, without long-term current use of insulin ([facility]/HCC) (HCC) (E11.9) Assessment & Plan: Stressed importance of continued A1c control to minimize the snf effects of diabetes. Bring accuchecks to office when instructed to do so. Check A1c about every 3-6 months. Take medication as prescribed. Get annual eye exam. Encouraged ASHA/Statin if able to tolerate. Encouraged weight controland encouraged diabetic diet and exercise. Continue with Rybelsus 14 Morbid obesity with BMI of 40.0-44.9, adult (HCC) (E66.01, Z68.41) Assessment & Plan: Discussed the patient's BMI. The BMI is above average. BMI management plan is completed. BMI Follow-up includes: nutrition counseling, exercise counseling and education provided. Other orders - rosuvastatin (CRESTOR) 10 mg tablet; Take 0.5 tablets (5 mg total) by mouth daily - semaglutide (RYBELSUS) 14 mg tablet; Take 1 tablet (14 mg total) by mouth registered phlebotomist part time before breakfast *This note is dictated using [email or web address] voice recognition software, variances in spelling and vocabulary are possible and unintentional.* Marah Jonas PA-C E CUTTER documented in this encounter Miscellaneous Notes * Assessment & Plan Note - Marah Jonas PA - 12/22/2022 11:03 PM SHADE CUTTER Associated Problem(s): BMI 40.0-44.9, adult ([facility]) (Resolved 12/22/2022) Discussed the patient's BMI. The BMI is above average. BMI management plan is completed. BMI Follow-up includes: nutrition counseling, exercise counseling and education provided. E CUTTER * Assessment & Plan Note - Marah Jonas PA - 12/22/2022 11:03 PM SHADE CUTTER Associated Problem(s): Annual physical exam (Resolved 06/14/2024) Encouraged healthy lifestyle, good nutrition and exercise. Encouraged Calcium and Vitamin D and weight bearing exercise for bone health. Reviewed immunizations Reviewed age appropirate screenings. E CUTTER * Assessment & Plan Note - Marah Jonas PA - 12/22/2022 11:03 PM SHADE CUTTER Associated Problem(s): Hypertension associated with diabetes (HCC) Bp is stable/in acceptable range for any co-morbidities. Encouraged to limit sodium intake and exercise for weight control. Continue amlodipine lisinopril E CUTTER * Assessment & Plan Note - Marah Jonas PA - 12/22/2022 11:00 PM SHADE CUTTER Associated Problem(s): Controlled type 2 diabetes mellitus without complication, without long-term current use of insulin ([facility]/HCC) (HCC) Stressed importance of continued A1c control to minimize the exterminator helper effects of diabetes. Bring accuchecks to office when instructed to do so. Check A1c about every 3-6 months. Take medication as prescribed. Get annual eye exam. Encouraged ASHA/Statin if able to tolerate. Encouraged weight controland encouraged diabetic diet and exercise. Continue with Rybelsus 14 E CUTTER E CUTTER * Assessment & Plan Note - Marah Jonas PA - 12/22/2022 10:59 PM SHADE CUTTER Associated Problem(s): Hyperlipidemia associated with type 2 [...] to take as much as she can toget the benefit of the statin E CUTTER E CUTTER * Assessment & Plan Note - Hattie Rush MA - 12/12/2022 8:38 AM CSTAssociated Problem(s): Obesity, morbid, BMI 40.0-49.9 (HCC) (Resolved 02/15/2024) Discussed the patient's BMI. The BMI is above average. BMI management plan is completed. BMI Follow-up includes: nutrition counseling, exercise counseling and education provided. E CUTTER documented in this encounter Plan of Treatment Not on file documented as of this encounter Procedures Procedure Name Priority Date/Time Associated Diagnosis Comments HEMOGLOBIN A1C Routine 05/13/2023 8:35 AM CDT Hyperlipidemia associated with type 2 diabetes mellitus (HCC) LIPID PANEL Routine 05/13/2023 8:35 AM CDT Hyperlipidemia associated with type 2 diabetes mellitus (HCC) COMPREHENSIVE METABOLIC PANEL Routine 05/13/2023 8:35 AM CDT Hyperlipidemia associated with type 2 diabetes mellitus (HCC) documented in this encounter Results * (ABNORMAL) Lipid panel (05/13/2023 8:35 AM CDT) [facility] Cholesterol 137 100 - 199 mg/dL [facility] - 01 Triglycerides 178(H) 0 - 149 mg/dL [facility] - 01 HDL Cholesterol 34(L) >39 mg/dL [facility] - 01 VLDL 30 5 - 40 mg/dL [facility] - 01 LDL, calculated 73 0 - 99 mg/dL [facility] - 01 Blood 05/13/2023 8:35 AM CDT 05/13/2023 Narrative [facility] - 05/14/2023 9:37 AM CDT Performed at: ??01 - [facility] [address] ??[id number] Plaster Lather: Enrique Dunne PhD, Phone: ??[phone] Marah WELCH LAB BLOOD ORDERABLES Final Result [facility] - 01 * (ABNORMAL) Comprehensive metabolic panel (05/13/2023 8:35 AM CDT) Glucose 184(H) 70 - 99 mg/dL [facility] - 01 BUN 14 8 - 27 mg/dL [facility] - 01 Creatinine, Serum 0.64 0.57 - 1.00 mg/dL [facility] - 01 eGFR 92 >59 mL/min/1.7 3 [facility] - 01 BUN/creat ratio 22 12 - 28 [facility] - 01 Sodium 138 134 - 144 mmol/L [facility] - 01 Potassium, sr 4.5 3.5 - 5.2 mmol/L [facility] - 01 Chloride 99 96 - 106 mmol/L [facility] - 01 CO2 24 20 - 29 mmol/L [facility] - 01 Calcium 9.6 8.7 - 10.3 mg/dL [facility] - 01 Protein, sr 6.7 6.0 - 8.5 g/dL [facility] - 01 Albumin 4.5 3.8 - 4.8 g/dL [facility] - 01 Comment:Please note refere nce interval change Globulin, Total 2.2 1.5 - 4.5 g/dL [facility] - 01 A/G Ratio 2.0 1.2 - 2.2 [facility] - 01 Bilirubin, Total 0.6 0.0 - 1.2 mg/dL [facility] - 01 Alk phos 96 44 - 121 IU/L [facility] - 01 AST 16 0 - 40 IU/L [facility] - 01 ALT 15 0 - 32 IU/L [facility] - 01 Blood 05/13/2023 8:35 AM CDT 05/13/2023 Narrative [facility] - 05/14/2023 9:37 AM CDT Performed at: ??01 - [facility] [address] ??[id number] Plaster Lather: Enrique Dunne PhD, Phone: ??[phone] Marah WELCH LAB BLOOD ORDERABLES Final Result Performing Organization Address [facility] de Phone Number [facility] * (ABNORMAL) Hemoglobin A1c (05/13/2023 8:35 AM CDT) Hgb A1C 7.8(H) 4.8 - 5.6 % [facility] - 01 Comment: ? Prediabetes: 5.7 - 6.4 ? Diabetes: >6.4 ? Glycemic control for adults with diabetes: <7.0 Blood 05/13/2023 8:35 AM CDT 05/13/2023 Narrative [facility] - 05/14/2023 9:37 AM CDT Performed at: ??01 - [facility] [address] ??[id number] Plaster Lather: Enrique Dunne PhD, Phone: ??[phone] Marah WELCH LAB BLOOD ORDERABLES Final Result Performing Organization Address [facility] Co de Phone Number [facility] documented in this encounter Visit Diagnoses Diagnosis Annual physical exam- Primary Routine general medical examination at a health care facility Hyperlipidemia associated with type 2 diabetes mellitus (HCC) Hypertension associated with diabetes (HCC) Unspecified essential hypertension Type 2 diabetes mellitus without complication, without long-term current use of insulin (CMS/HCC) (HCC) Morbid obesity with BMI of 40.0-44.9, adult (HCC) documented in this encounter Discontinued Medications Medication Sig Discontinue Reason Start Date End Da te semaglutide (Rybelsus) 7 mg tablet Take 1 tablet (7 mg total) by mouth registered phlebotomist part time before breakfast 09/11/2022 12/12/2022 rosuvastatin (CRESTOR) 10 mg tablet Take 1 tablet (10 mg total) by mouth daily Reorder 05/22/2022 12/12/2022 documented as of this encounter Care Teams Wheel Fitter Relationship Specialty Start Date End Date Marah Jonas PA [address] [place] [address] PCP - General Internal Medicine 04/05/19 documented as of this encounter
--- OUTSIDE RECORDS SUMMARY | 2024-11-23 05:14 | XMS_ITS | Encounter Summary ---
Author Organization [facility] Address [address] [place] [address] [address] Team Prov[address] Care Court Administrator Name Role Phone Marah Jonas Primary Care Provider [phone]- [phone] Reason for Visit * Reason Onset Date Comments Cough 07/14/2023 Encounter Details Date Type Department Care Team (Late st Contact Info) Description 07/14/2023 Nurse Triage [facility] Family Medicine [address] [place] [address] Marah Jonas PA [email or web address] [place] [address] Social History Tobacco Use Types [...] on file Legal Sex Female 6:23 PM FRUIT PITTER Gender Identity Not on file Sexual Orientation Not on file Occupation Industry Job Start Date Job End Date Retired Not on file Not on file Not on file documented as of this encounter Miscellaneous Notes * Telephone Encounter - Shey Hand RN - 07/14/2023 9:58 AM CDT Pt calls into brick catcher after having productive cough with clear drainage since 07/08. Pt denies known sick contacts, CP, fever, SOB, [place] or body aches. Pt speaking in complete sentences. Pt offered appt and accepts at [facility]. Pt advised to stay hydrated, call back with fever or further concerns. Pt verbalized understanding. Reason for Disposition Patient wants to be seen Protocols used: [id number] * Telephone Encounter - Shey Hand RN - 07/14/2023 9:52 AM CDT Regarding: Coughing up clear phlegm, runny nose ----- Message from Karla Owen sent at 07/14/2023 8:36 AM CDT ----- Symptom Based Call Caller's Callback #: [phone] Chief Complaint(s): Coughing up clear phlegm, runny nose Duration: Since last Friday What type of symptom(s) is the patient experiencing? Non-Emergent. Is this a new or reoccurring symptom(s)? Reoccurring but it has been over a year. What have you tried to help your symptom(s)? Municex, Cough Syrup including Codeine (previous prescription) Why was appointment not scheduled? Appointment availability did not meet the patient's need. Provider's next available wasn't until September. Additional Comments: Patient mentions that she has no aches, doesn't feel bad and just is concernedabout the coughing up of the phlegm. Patient not sure if she had an antibiotic the last time to completley clear her up. Does message need to be routed? Yes-Action Needed documented in this encounter Plan of Treatment Not on file documented as of this encounter Visit Diagnoses Not on filedocumented in this encounter Care Teams Court Administrator Relationship Specialty Start Date End Date Marah Jonas PA [address] [facility] [facility] [address] [place] [address] PCP - General Internal Medicine 04/05/19 documented as of this encounter
--- OUTSIDE RECORDS SUMMARY | 2024-11-23 05:14 | XMS_ITS | Encounter Summary ---
Author Organization [facility] Address [address] [place] [address] Care Team Providers Care Warp Spooler Name Role Phone Marah Jonas Primary Care Provider [phone] Reason for Referral * Diagnostic Imaging (Routine) - Closed Specialty Diagnoses / Procedures Referred By Contac melanie Referred To Contact Diagnoses Breast cancer screening by mammogram Procedures Screening Mammogram Bilateral W [place] Marah Jonas PA [address] [facility] [facility] [address] [place] [address] Phone: tel: fax: External Order Referral ID Status Reason Start Date Expiration Date Visits Re quested Visits Authorized [id number] Closed 05/19/2023 06/17/2024 1 1 Reason for Visit * Reason Comments Medicare Wellness Pt presents today fo r [facility], without concerns. Encounter Details Date Type Department Care Team (Late st Contact Info) Description 05/19/2023 8:00 AM CDT Office Visit [facility] Family Medicine [address] [place] [address] Marah Jonas PA [address] [facility] [address] [place] [address] Medicare annual wellness visit, subsequent (Primary Dx); Hypertension associated with diabetes (HCC); Type 2 diabetes mellitus without complication, without long-term current use of insulin (CMS/HCC) (HCC); Hyperlipidemia associated with type 2 diabetes mellitus (HCC); Breast cancer screening by mammogram; Nocturia; Elevated LFTs; Facial lesion; Fatigue, unspecified type; Memory difficulty Social History Tobacco Use Types Packs/Day Years [...] on file Legal Sex Female 6:23 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 Gender Identity Not on file Sexual Orientation Not on file Occupation Industry Job Start Date Job End Date Retired Not on file Not on file Not on file documented as of this encounter Last Filed Vital Signs Vital Sign Reading Time Taken Comments Blood Pressure 140/88 05/19/2023 8:06 AM CDT Pulse 78 05/19/2023 8:06 AM CDT Temperature 36.7 ??C (98 ??F) 05/19/2023 8:06 AM CDT Respiratory Rate - - Oxygen Saturation 98% 05/19/2023 8:06 AM CDT Inhaled Oxygen Concentration - - Weight 116.8 kg (257 lb 6.4 oz) 05/19/2023 8:06 AM CDT Height 43.6 cm (1' 5.17 ) 05/19/2023 8:06 AM CDT Body Mass Index 614.22 05/19/2023 8:06 AM CDT documented in this encounter Patient Instructions * Patient Instructions* Kitty Chaney - 05/19/2023 8:00 AM CDT Take lisinopril 2.5 mg in the AM (after Rybelsus) instead of bedtime documented in this encounter Ordered Prescriptions Prescription Sig Dispense Quantity Refills Last Filled Start Date End Date semaglutide (RYBELSUS) 14 mg tablet Take 1 tablet (14 mg total) by mouth ship's carpenter before breakfast 30 tablet 05/19/2023 4 lisinopriL (PRINIVIL,ZESTRIL) 2.5 mg tablet Take 1 tablet (2.5 mg total) by mouth daily 90 tablet 2 05/19/2023 3 amLODIPine (NORVASC) 10 mg tablet Take 1 tablet (10 mg total) by mouth daily 90 tablet 2 05/19/2023 3 documented in this encounter Progress Notes * Morales Chaneyah - 05/19/2023 8:00 AM CDT Images from the original note were not included. Subjective/Objective Patient ID: Mandy Oconnor is a 78 y.o. female. Chief Complaint Medicare Wellness (Pt presents today for [facility], without concerns.) HPI Diabetes Rybelsus 14 mg - began 02/2023 and getting for free with patient assistance 05/13 A1C 7.8 Asking about injectable GLP-1 as a friend is on one -- Reviewed she is on a GLP-1 HTN Amlodipine 10 mg in PM Lisinopril 2.5 mg in PM --> switch to AM Hyperlipidemia Crestor 10 mg --> tolerating it every other day. Previously had leg pain Allergies States that she has no symptoms Flonase - no longer taking PRN Antivert Elevated LFTs Saw Dr. Nugent/hepatology last year. MRCP was negative for stones. LFTs returned back to low elevated -- probable fatty liver. Continues to follow with Dr. Nugent but she denies any further RUQ pain or sx.s No further followup needed Facial lesions All skin bx were normal. Following annual Distinctive Derm Memory problems Noting difficulty remembering small things such as names and where she put things Not hindering daily activity Nocturia Wakes up twice per nice to urinate Drinks water until around 8 pm No increased daytime frequency, burning or painful urination Health Maintenance Mamm -- 08/2022 --> 08/2023 Pneumonia vaccines are UTD [place] - 07/2019 --->2023 Flu Vaccine -- DXA - done 08/07/2022 - no evidence of osteopenia or osteoporosis AP spine : 0.1 Total mean hip: -0.1 All about eyes [place]- 05/15 --> diabetic eye exam Review of Systems See HPI Vitals: 05/19/23 0806 BP: 140/88 BP Location: Left arm Patient Position: Sitting Pulse: 78 Temp: 36.7 ??C (98 ??F) TempSrc: Oral SpO2: 98% Weight: 116.8 kg (257 lb 6.4 oz) Height: 43.6 cm (1' 5.17 ) Physical Exam Vitals and nursing note reviewed. Constitutional: Appearance: Normal appearance. She is well-developed. HENT: Head: Normocephalic and atraumatic. Eyes: Comments: Pupils are equal Cardiovascular: Rate and Rhythm: Normal rate and regular rhythm. Heart sounds: No murmur heard. Pulmonary: Effort: Pulmonary effort is normal. Breath sounds: Normal breath sounds. Musculoskeletal: Right lower leg: No edema. Left lower leg: No edema. Skin: General: Skin is warm and dry. Findings: No rash. Neurological: Mental Status: She is alert and oriented to person, place, and time. Psychiatric: Mood and Affect: Mood normal. Behavior: Behavior normal. Lab Results Component Value Date CHOL 137 05/13/2023 CHOL 223 (H) 12/09/2022 CHOL 155 08/28/2022 Lab Results Component Value Date HDL 34 (L) 05/13/2023 HDL 39 (L) 12/09/2022 HDL 35 (L) 08/28/2022 Lab Results Component Value Date LDLCALC 73 05/13/2023 LDLCALC 152 (H) 12/09/2022 LDL 93 08/28/2022 LDL 138 (H) 01/15/2022 LDL 155 (H) 05/18/2021 Lab Results Component Value Date TRIG 178 (H) 05/13/2023 TRIG 177 (H) 12/09/2022 TRIG 176 (H) 08/28/2022 No results found for: POCCHDLR No results found for: POCNONHDL No results found for: POCCHLPL Chemistry Lab Results Component Value Date SODIUM 138 05/13/2023 POTASSIUM 4.1 08/28/2022 CHLORIDE 99 05/13/2023 CO2 24 05/13/2023 ANIONGAP 11 06/26/2021 BUNSER 14 05/13/2023 CREATININE 0.64 05/13/2023 GLUCOSE 184 (H) 05/13/2023 CALCIUM 9.6 05/13/2023 BILITOT 0.6 05/13/2023 PROTEIN 6.7 05/13/2023 ALBUMIN 4.5 05/13/2023 GFRNAA >90 06/26/2021 ALKPHOS 96 05/13/2023 AST 16 05/13/2023 ALT 15 05/13/2023 Lab Results Component Value Date HGBA1C 7.8 (H) 05/13/2023 Assessment/Plan Diagnoses and all orders for this visit: Medicare annual wellness visit, subsequent (Z00.00) (Primary) Assessment & Plan: Encouraged healthy lifestyle, good nutrition and exercise. Encouraged Calcium and Vitamin D and weight bearing exercise for bone health. Reviewed immunizations. Reviewed age appropirate screenings. Medicare Wellness Documentation is completed within the chart Hypertension associated with diabetes (HCC) (E11.59, I15.2) Assessment & Plan: Blood pressure appears elevated on current medication regime. Advised to decrease salt intake. Educated patient on the importance of a healthy lifestyle with diet and exercise on the management of hypertension. Continue medications and monitor blood pressure at home as needed. The plan is to switchto taking lisinopril 2.5 mg in the AM while continuing amlodipine 10 mg in the PM for better blood pressure control. Type 2 diabetes mellitus without complication, without long-term current use of insulin ([facility]) (HCC) (E11.9) Assessment & Plan: Stressed importance of continued A1c control to minimize the group home effects of diabetes. This includes but [...] she is already taking Rybelsus 14 mg. Orders: - Comprehensive metabolic panel; Future - Hemoglobin A1c; Future Hyperlipidemia associated with type 2 diabetes mellitus (HCC) (E11.69, E78.5) Assessment & Plan: Discussed the risks of elevated cholesterol levels. Encouraged patient to follow low fat/low chol diet like the Mediterranean diet. Increase good fats in the diet. Increase exercise. Monitor labs as needed. Continue statin every other day due to noted leg pain when taken every day. Orders: - Lipid panel; Future Breast cancer screening by mammogram (Z12.31) Assessment & Plan: Mammogram order provided Orders: - Screening Mammogram Bilateral W Manolo; Future Nocturia (R35.1) Assessment & Plan: Patient describing nocturia. Discussed ways to limit her liquid intake in the evening to decrease her need to urinate throughout the night. Encouraged her to consume most of her fluids prior to 4 pm with only a glass of water with dinner. Elevated LFTs (R79.89) Assessment & Plan: Following with Dr Nugent as needed. LFTs are normalized and RUQ pain has resolved. Facial lesion (L98.9) Assessment & Plan: Patient previously saw dermatology who determined that all skin biopsies were normal. Encouraged tofollow up with Derm as needed. Fatigue, unspecified type (R53.83) Assessment & Plan: Fatigue is likely multifactorial. We will evaluate labs for any underlying abnormalities that the fatigue may be attributed to. Orders: - TSH; Future Memory difficulty (R41.3) Assessment & Plan: Memory difficulty noted on MWE. Patient does not feel her memory is impairing her activities of daily living or quality of life. Encouraged healthy lifestyle with diet, exercise, and medical compliance. Return to office if memory appears to be worsening. Other orders - amLODIPine (NORVASC) 10 mg tablet; Take 1 tablet (10 mg total) by mouth daily - lisinopriL (PRINIVIL,ZESTRIL) 2.5 mg tablet; Take 1 tablet (2.5 mg total) by mouth daily - semaglutide (RYBELSUS) 14 mg tablet; Take 1 tablet (14 mg total) by mouth ship's carpenter before breakfast MEDICARE ANNUAL WELLNESS VISIT Mandy Oconnor Medicare Health Risk Assessment Basic Information In general, would you say your health is: Good Do you have an advance directive, such as a living will or durable power of mergers and acquisitions attorney?: Yes Do you have to strain or struggle to hear/understand conversations?: No Have you experienced any of the following problems currently or recently? Eating: No Grooming: No Bathing: No Walking: No Using the toilet: No Memory problems: Yes Difficulty speaking: No Pain: No Sexual Health: No Fatigue: No Have you experienced any of the following problems currently or recently? Laundry and/or housekeeping: No Handling Money: No Shopping: No Food preparation: No Transportation: No Taking and/or getting your own medications: No Do you use prescription drugs that are not prescribed for you?: No Problem List, Past Medical and Surgical History: Patient Active Problem List Diagnosis History of colon cancer Hyperlipidemia associated with type 2 diabetes mellitus (HCC) Type 2 diabetes mellitus without complication, without long-term current use of insulin ([facility]/HCC) (HCC) Abnormal TSH Influenza vaccine refused Hypertension associated with diabetes ([facility]) Breast cancer screening by mammogram Skin lesion of face Fatigue History of 2019 novel coronavirus disease (COVID-19) RUQ discomfort Elevated LFTs Urinary tract infection with hematuria Facial lesion Menopause Urinary urgency Vulvar irritation Morbid obesity with BMI of 40.0-44.9, adult ([facility]) Annual physical exam Memory difficulty Nocturia Medicare annual wellness visit, subsequent Past Medical [...] activity: Defer Alcohol Use: Not At Risk (05/19/2023) AUDIT-C Frequency of Alcohol Consumption: Never Average Number of Drinks: Patient does not drink Frequency of Binge Drinking: Never Allergies: No Known Allergies Medications: Current Outpatient Medications: cholecalciferol (VITAMIN D-3) 5,000 unit tablet, 0.2 tablets (1,000 Units total), Disp: , Rfl: collagen, hydrolysate, bovine, (collagen, hydr, bovine,, bulk,) 100 % powder, , Disp: , Rfl: fluticasone propionate (FLONASE) 50 mcg/actuation nasal spray, Administer 1 spray into each nostrildaily, Disp: 3 Inhaler, Rfl: 2 floes-1-tiy-pgm-iqk-npxb oil 1,050-1,200 mg capsule, Rx: Richardson 3, Disp: , Rfl: rosuvastatin (CRESTOR) 10 mg tablet, Take 0.5 tablets (5 mg total) by mouth daily, Disp: 90 tablet,Rfl: 1 amLODIPine (NORVASC) 10 mg tablet, Take 1 tablet (10 mg total) by mouth daily, Disp: 90 tablet, Rfl: 2 lisinopriL (PRINIVIL,ZESTRIL) 2.5 mg tablet, Take 1 tablet (2.5 mg total) by mouth daily, Disp: 90 tablet, Rfl: 2 meclizine (ANTIVERT) 25 mg tablet, TK 1 T PO TID PRN FOR DIZZINESS (Patient not taking: Reported on09/11/2022), Disp: , Rfl: multivitamin with minerals (DAILY MULTIVITAMIN-MINERALS ORAL), Rx: Multivitamin/Minerals (Patient not taking: Reported on 09/11/2022), Disp: , Rfl: semaglutide (RYBELSUS) 14 mg tablet, Take 1 tablet (14 mg total) by mouth ship's carpenter before breakfast, Disp: 30 tablet, Rfl: 0 Depression Screen: PHQ Screening Over the past 2 weeks, how often have you been bothered by any of the following problems? Little Interest or Pleasure in Doing Things: Not at all Feeling Down, Depressed, or Hopeless: Not at all PHQ-2 Total Score (If total score is 3 or more points, staff should administer the PHQ-9): 0 Care Team Providers: Patient Care Team: Marah Jonas PA as PCP - General (Internal Medicine) Primary Pharmacy/DME suppliers: [id number] - [place], [place] - [address] [facility] [id number] - [address] [facility] [address] Detection of Cognitive Impairment: The patient does not have cognitive impairment based on direct observation, discussion with patientor family, or review of medical records. Health Maintenance: Health Maintenance Topics with due status: Overdue Topic Date Due Foot Exam Never done Zoster Vaccines Never done Pneumococcal vaccine 65+ 01/13/2020 DTaP/Tdap/Td Vaccine 12/19/2020 Health Maintenance Topics with due status: Not Due Topic Last Completion Date Osteoporosis Screening-Bone Density Scan 08/07/2022 Albumin Creatinine Ratio, Urine 12/09/2022 Well Visit 65+ 12/12/2022 Lipid Panel 05/13/2023 Hemoglobin A1C 05/13/2023 eGFR 05/13/2023 Dilated Eye Exam 05/15/2023 Fall Risk Assessment 05/19/2023 Depression Screening-PHQ 05/19/2023 Influenza Vaccine Not Due Health Maintenance Topics with due status: Completed Topic Last Completion Date Hepatitis C Screening 02/26/2021 Health Maintenance Topics with due status: Discontinued Topic Date Due Colorectal Cancer Screening Discontinued Breast Cancer Screening-Mammogram Discontinued Counseling and Referral of Preventative Services: Lifestyle Recommendations , Increase Physical Activity, Stop Using Tobacco, Reduce Weight, and Improve Diet Advanced Directive Durable Power of Irrigation Technician: Discussed Today Living Will: Discussed Today Patient here for annual Medicare wellness visit and for review of complete medical problem list. All the elements of the plan were completed as outlined by CMS. I reviewed Medicare Wellness Questionnaire (other physicians involved in care, depression screen, advanced directives), cognitive/memory, and functional assessment. I reviewed and updated the complete problem list, medication list, familyhistory, and immunization records with the patient. I provided preventive counseling and early detection interventions to the patient through health maintenance update and summary of today's office visit. *This note is dictated using [employer] medical voice recognition software, variances in spelling and vocabulary are possible and unintentional.* Marah Jonas PA-C *This note is dictated using [employer] medical voice recognition software, variances in spelling and vocabulary are possible and unintentional.* Kitty MENARD [facility] PA Student documented in this encounter Miscellaneous Notes * Result Encounter Note - Marah Jonas PA - 10/22/2023 6:15 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 Let pt know her mammogram is normal and will plan to repeat in 1 year. ERATIVE EDUCATION DIRECTOR * Assessment & Plan Note - Marah Jonas PA - 05/19/2023 10:45 PM CDT Associated Problem(s): Medicare annual wellness visit, subsequent (Resolved 02/15/2024) Encouraged healthy lifestyle, good nutrition and exercise. Encouraged Calcium and Vitamin D and weight bearing exercise for bone health. Reviewed immunizations. Reviewed age appropirate screenings. Medicare Wellness Documentation is completed within the chart * Assessment & Plan Note - Kitty Chaney - 05/19/2023 6:08 PM CDTAssociated Problem(s): Nocturia (Resolved 06/14/2024) Patient describing nocturia. Discussed ways to limit her liquid intake in the evening to decrease her need to urinate throughout the night. Encouraged her to consume most of her fluids prior to 4 pm with only a glass of water with dinner. * Assessment & Plan Note - Kitty Chaney - 05/19/2023 6:07 PM CDTAssociated Problem(s): Memory difficulty (Resolved 06/14/2024) Memory difficulty noted on MWE. Patient does not feel her memory is impairing her activities of daily living or quality of life. Encouraged healthy lifestyle with diet, exercise, and medical compliance. Return to office if memory appears to be worsening. * Assessment & Plan Note - Kitty Chaney - 05/19/2023 6:04 PM CDTAssociated Problem(s): Breast cancer screening by mammogram Mammogram order provided * Assessment & Plan Note - Kitty Chaney - 05/19/2023 6:04 PM CDTAssociated Problem(s): Elevated LFTs Following with Dr Raffi as needed. LFTs are normalized and RUQ pain has resolved. * Assessment & Plan Note - Kitty Chaney - 05/19/2023 6:03 PM CDTAssociated Problem(s): Facial lesion Patient previously saw dermatology who determined that all skin biopsies were normal. Encouraged tofollow up with Derm as needed. * Assessment & Plan Note - Kitty Chaney - 05/19/2023 6:02 PM CDTAssociated Problem(s): Fatigue (Resolved 06/14/2024) Fatigue is likely multifactorial. We will evaluate labs for any underlying abnormalities that the fatigue may be attributed to. * Assessment & Plan Note - Kitty Cahney - 05/19/2023 6:02 PM CDTAssociated Problem(s): Hyperlipidemia associated with type 2 diabetes mellitus (HCC) Discussed the risks of elevated cholesterol levels. Encouraged patient to follow low fat/low chol diet like the Mediterranean diet. Increase good fats in the diet. Increase exercise. Monitor labs as needed. Continue statin every other day due to noted leg pain when taken every day. * Assessment & Plan Note - Kitty Chaney - 05/19/2023 6:02 PM CDTAssociated Problem(s): Controlled type 2 diabetes mellitus without complication, without long-term current use of insulin (CMS/HCC) (HCC) Stressed importance of continued A1c control to minimize the manager terminal effects of diabetes. This includes but [...] she is already taking Rybelsus 14 mg. * Assessment & Plan Note - Kitty Chaney - 05/19/2023 5:59 PM CDTAssociated Problem(s): Hypertension associated with diabetes (HCC) Blood pressure appears elevated on current medication regime. Advised to decrease salt intake. Educated patient on the importance of a healthy lifestyle with diet and exercise on the management of hypertension. Continue medications and monitor blood pressure at home as needed. The plan is to switchto taking lisinopril 2.5 mg in the AM while continuing amlodipine 10 mg in the PM for better blood pressure control. documented in this encounter Plan of Treatment Not on file documented as of this encounter Procedures Procedure Name Priority Date/Time Associated Diagnosis Comments SCREENING MAMMOGRAM BILATERAL W MANOLO Schedule Routine, Read Routine (OP Routine) 10/18/2023 Breast cancer screening by mammogram TSH Routine 09/17/2023 11:06 AM COOPERATIVE EDUCATION DIRECTOR Fatigue, unspecified type HEMOGLOBIN A1C Routine 09/17/2023 11:06 AM COOPERATIVE EDUCATION DIRECTOR Type 2 diabetes mellitus without complication, without long-term current use of insulin (CMS/HCC) (HCC) LIPID PANEL Routine 09/17/2023 11:06 AM COOPERATIVE EDUCATION DIRECTOR Hyperlipidemia associated with type 2 diabetes mellitus (HCC) COMPREHENSIVE METABOLIC PANEL Routine 09/17/2023 11:06 AM COOPERATIVE EDUCATION DIRECTOR Type 2 diabetes mellitus without complication, without long-term current use of insulin (CMS/HCC) (HCC) documented in this encounter Results * Screening Mammogram Bilateral W Manolo (10/18/2023) Anatomical Region Laterality Modality Breast Bilateral Mammography us Marah WELCH IMG MAMMO PROCEDURES Final Result * (ABNORMAL) Lipid panel (09/17/2023 11:06 AM COOPERATIVE EDUCATION DIRECTOR) Pathologist [facility] Cholesterol 199 100 - 199 mg/dL [facility] - 01 Triglycerides 188(H) 0 - 149 mg/dL [facility] - 01 HDL Cholesterol 38(L) >39 mg/dL [facility] - 01 VLDL 34 5 - 40 mg/dL [facility] - 01 LDL, calculated 127(H) 0 - 99 mg/dL [facility] - 01 Blood 09/17/2023 11:0 6 AM COOPERATIVE EDUCATION DIRECTOR 09/17/2023 Narrative [facility] - 09/18/2023 7:38 AM COOPERATIVE EDUCATION DIRECTOR Performed at: ?? [facility] ??[id number] Cardiology Teacher: Enrique Dunne PhD, Phone: ??[phone] Marah WELCH LAB BLOOD ORDERABLES Final Result Performing Organization Address [facility] de Phone Number [facility] * TSH (09/17/2023 11:06 AM COOPERATIVE EDUCATION DIRECTOR) [facility] TSH 2.770 0.450 - 4.500 uIU/mL [facility] - 01 Blood 09/17/2023 11:0 6 AM COOPERATIVE EDUCATION DIRECTOR 09/17/2023 Narrative [facility] - 09/18/2023 7:38 AM COOPERATIVE EDUCATION DIRECTOR Performed at: ??01 - [facility] ??[id number] Cardiology Teacher: Enrique Dunne PhD, Phone: ??[phone] Marah WELCH LAB BLOOD ORDERABLES Final Result Performing Organization Address [facility] de Phone Number [facility] * (ABNORMAL) Hemoglobin A1c (09/17/2023 11:06 AM COOPERATIVE EDUCATION DIRECTOR) [facility] Hgb A1C 7.4(H) 4.8 - 5.6 % [facility] - 01 Comment: ? Prediabetes: 5.7 - 6.4 ? Diabetes: >6.4 ? Glycemic control for adults with diabetes: <7.0 Blood 09/17/2023 11:0 6 AM COOPERATIVE EDUCATION DIRECTOR 09/17/2023 Narrative [facility] - 09/18/2023 7:38 AM COOPERATIVE EDUCATION DIRECTOR Performed at: ??01 - [facility] [address] ??[id number] Cardiology Teacher: Enrique Dunne PhD, Phone: ??[phone] us Marah WELCH LAB BLOOD ORDERABLES Final Result [facility] - * (ABNORMAL) Comprehensive metabolic panel (09/17/2023 11:06 AM COOPERATIVE EDUCATION DIRECTOR) Glucose 159(H) 70 - 99 mg/dL [facility] - 01 BUN 13 8 - 27 mg/dL [facility] - 01 Creatinine, Serum 0.61 0.57 - 1.00 mg/dL [facility] - 01 eGFR 93 >59 mL/min/1.7 3 [facility] - 01 BUN/creat ratio 21 12 - 28 [facility] - 01 Sodium 139 134 - 144 mmol/L [facility] - 01 Potassium, sr 4.7 3.5 - 5.2 mmol/L [facility] - 01 Chloride 100 96 - 106 mmol/L [facility] - 01 CO2 24 20 - 29 mmol/L [facility] - 01 Calcium 9.5 8.7 - 10.3 mg/dL [facility] - 01 Protein, sr 6.9 6.0 - 8.5 g/dL [facility] - 01 Albumin 4.5 3.8 - 4.8 g/dL [facility] - 01 Globulin, Total 2.4 1.5 - 4.5 g/dL [facility] - 01 A/G Ratio 1.9 1.2 - 2.2 [facility] - 01 Bilirubin, Total 0.5 0.0 - 1.2 mg/dL [facility] - 01 Alk phos 106 44 - 121 IU/L [facility] - 01 AST 19 0 - 40 IU/L [facility] - 01 ALT 20 0 - 32 IU/L [facility] - 01 Blood 09/17/2023 11:0 6 AM COOPERATIVE EDUCATION DIRECTOR 09/17/2023 Narrative [facility] - 09/18/2023 7:38 AM COOPERATIVE EDUCATION DIRECTOR Performed at: ?? - [facility] [address] ??[id number] Cardiology Teacher: Enrique Dunne PhD, Phone: ??[phone] Specimen Comment: A courtesy copy of this report has been sent to [phone] Marah WELCH LAB BLOOD ORDERABLES Final Result [facility] - 01 documented in this encounter Visit Diagnoses Diagnosis Medicare annual wellness visit, subsequent- Primary Hypertension associated with diabetes (HCC) Unspecified essential hypertension Type 2 diabetes mellitus without complication, without long-term current use of insulin (CMS/HCC) (HCC) Hyperlipidemia associated with type 2 diabetes mellitus (HCC) Breast cancer screening by mammogram Nocturia Elevated LFTs Other abnormal blood chemistry Facial lesion Fatigue, unspecified type Memory difficulty Memory loss documented in this encounter Discontinued Medications Medication Sig Discontinue Reason Start Date End Da te semaglutide (RYBELSUS) 14 mg tablet Take 1 tablet (14 mg total) by mouth ship's carpenter before breakfast Reorder 12/12/2022 05/19/2023 lisinopriL (PRINIVIL,ZESTRIL) 2.5 mg tablet Take 1 tablet by mouth once daily Reorder 02/28/2023 05/19/2023 amLODIPine (NORVASC) 10 mg tablet Take 1 tablet by mouth once daily Reorder 02/28/2023 05/19/2023 documented as of this encounter Care Teams Warp Spooler Relationship Specialty Start Date End Date Marah Jonas PA [address] [facility] [address] [place] [address] PCP - General Internal Medicine 04/05/19 documented as of this encounter
--- OUTSIDE RECORDS SUMMARY | 2024-11-23 05:14 | XMS_ITS | Encounter Summary ---
Author Organization [facility] Address [address] [place] [address] Care Team Providers Care Director Of Customer Acquisition Name Role Phone Marah Jonas Primary Care Provider +1- [phone] Reason for Visit * Reason Onset Date Comments Appointment Request 09/02/2022 Encounter Details Date Type Department Care Team (Late st Contact Info) Description 09/02/2022 Telephone [facility] Family Medicine [address] [facility] [address] [place] [address] Marah Jonas PA [address] [facility] [address] [place] [address] Appointment Request Social History Tobacco Use Types Packs/Day [...] on file 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 Visit Type: Established Patient What is the reason for the visit? Follow up What is the reason we were unable to schedule the appointment? Current appointment availability didnot meet patient's need. If applicable, was a nurse practitioner or other provider offered? N/A Caller's Callback #: [phone] Additional Comments: Patient has a card for an appt on 09/04/22 at 8am the appointment is not there.Please advise Does message need to be routed? Yes-Action Needed documented in this encounter Plan of Treatment Not on file documented as of this encounter Visit Diagnoses Not on filedocumented in this encounter Care Teams Director Of Customer Acquisition Relationship Specialty Start Date End Date Marah Jonas PA [address] [place] [address] PCP - General Internal Medicine 04/05/19 documented as of this encounter
--- OUTSIDE RECORDS SUMMARY | 2024-11-23 05:14 | XMS_ITS | Encounter Summary ---
Author Organization [facility] Address [address] [facility] [address] [place] [address] Care Team Providers Care Dietitian Therapeutic Name Role Phone Marah Jonas Primary Care Provider +1- [phone] Reason for Visit * Reason Onset Date Comments Call Back 08/12/2022 Encounter Details Date Type Department Care Team (Late st Contact Info) Description 08/12/2022 Telephone [facility] Family Medicine [address] [facility] [address] [place] [address] Marah Jonas PA [address] [facility] [address] [place] [address] Call Back Social History Tobacco Use Types Packs/Day Years [...] on file 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 * Telephone Encounter - Edie Croft - 08/12/2022 10:52 AM CDT Call Back Caller???s Concern: Patient stated she got a call from the office by either Betsy or Vaishali regarding mammogram and bone density, no notes in chart, please follow up. Caller???s Call back #: [phone] Does message need to be routed? Yes-Action Needed documented in this encounter Plan of Treatment Not on file documented as of this encounter Visit Diagnoses Not on filedocumented in this encounter Care Teams Dietitian Therapeutic Relationship Specialty Start Date End Date Marah Jonas PA [address] [place] [address] PCP - General Internal Medicine 04/05/19 documented as of this encounter
--- OUTSIDE RECORDS SUMMARY | 2024-11-23 05:14 | XMS_ITS | Encounter Summary ---
Author Organization [facility] Address [address] [place] [address] Care Team Providers Care Rail Signal Designer Name Role Phone Marah Jonas Primary Care Provider +1- [phone] Reason for Visit * Reason Onset Date Comments Medical Question/Miscellaneous 02/03/2023 Encounter Details Date Type Department Care Team (Late st Contact Info) Description 02/03/2023 Telephone [facility] Family Medicine [address] [facility] [address] [place] [address] Marah Jonas PA [address] [place] [address] Medical Question/Miscellaneous Social History Tobacco [...] on file 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 No * Telephone Encounter - Myla Nava MA - 02/03/2023 3:17 PM CDT LM for patient to call me at the office. PLEASE TRANSFER CALL * Telephone Encounter - Bridgett Walker - 02/03/2023 11:22 AM CDT Medical Question/Miscellaneous Caller???s Concern: patient requesting a sample of semaglutide (RYBELSUS) 14 mg tablet Please call patient when she can pick that up Caller???s Call back #: [phone] Does message need to be routed?Yes-Action Needed documented in this encounter Plan of Treatment Not on file documented as of this encounter Visit Diagnoses Not on filedocumented in this encounter Care Teams Rail Signal Designer Relationship Specialty Start Date End Date Marah Jonas PA [address] [facility] [address] [place] [address] PCP - General Internal Medicine 04/05/19 documented as of this encounter
--- OUTSIDE RECORDS SUMMARY | 2024-11-23 05:14 | XMS_ITS | Encounter Summary ---
Author Organization [facility] Address [address] [place] [address] Care Team Providers Care Impress Associate Name Role Phone Marah Jonas Primary Care Provider +1- [phone] Reason for Visit * Reason Onset Date Comments Medical Records Request 06/04/2023 Encounter Details Date Type Department Care Team (Late st Contact Info) Description 06/04/2023 Telephone [facility] Family Medicine [address] [facility] [address] [place] [address] Marah Jonas PA [address] [place] [address] Medical Records Request Social History Tobacco Use Types Packs/Day [...] on file 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 CROSS on both her home and cell phones. If she calls back please transfer her to office. * Telephone Encounter - Rene February - 06/04/2023 3:31 PM CDT Medication Question/Clarification Medication Name(s): reneas What is the question or clarification needed? pt was checking on the status of the medication/ advised has not come in / please call pt onesimo Asking for Sanya to call her back If needed, Pharmacy(s) medication(s) should be sent to: n/ Caller???s Callback #: [phone] Additional Comments: N.A Does message need to be routed? Yes-Action Needed documented in this encounter Plan of Treatment Not on file documented as of this encounter Visit Diagnoses Not on filedocumented in this encounter Care Teams Impress Associate Relationship Specialty Start Date End Date Marah Jonas PA [facility] [facility] [address] [place] [address] PCP - General Internal Medicine 04/05/19 documented as of this encounter
--- OUTSIDE RECORDS SUMMARY | 2024-11-23 05:14 | XMS_ITS | Encounter Summary ---
Author Organization [facility] Address [address] [place] [address] Care Team Providers Care Trust And Estates Paralegal Name Role Phone Marah Jonas Primary Care Provider +1- [phone] Reason for Visit * Reason Comments Follow-up Encounter Details Date Type Department Care Team (Late st Contact Info) Description 09/11/2022 10:00 AM PROGRAM DIR Office Visit [facility] Family Medicine [address] [facility] [address] [place] [address] Marah Jonas PA [address] [facility] [address] [place] [address] Type 2 diabetes mellitus without complication, without long-term current use of insulin (CMS/HCC) (HCC) (Primary Dx); Hyperlipidemia associated with type 2 diabetes mellitus (HCC); Hypertension associated with diabetes (HCC); Fatigue, unspecified type; Morbid obesity with BMI of 40.0-44.9, adult ([facility]) Social History Tobacco Use Types Packs/Day Years [...] on file Legal Sex Female 6:23 PM PROGRAM DIR Gender Identity Not on file Sexual Orientation Not on file Occupation Industry Job Start Date Job End Date Retired Not on file Not on file Not on file documented as of this encounter Last Filed Vital Signs Vital Sign Reading Time Taken Comments Blood Pressure 130/82 09/11/2022 10:03 AM PROGRAM DIR Pulse 75 09/11/2022 10:03 AM PROGRAM DIR Temperature 36.6 ??C (97.8 ??F) 09/11/2022 1 0:03 AM PROGRAM DIR Respiratory Rate - - Oxygen Saturation 99% 09/11/2022 10: 03 AM PROGRAM DIR Inhaled Oxygen Concentration - - Weight 114.3 kg (251 lb 14.4 oz) 2021 10:03 AM PROGRAM DIR Height - - Body Mass Index 43.24 05/22/2022 8:48 AM CDT documented in this encounter Patient Instructions * Patient Instructions* Marah Jonas PA - 09/11/2022 10:00 AM PROGRAM DIR RAM DIR documented in this encounter Ordered Prescriptions Prescription Sig Dispense Quantity Refills Last Filled Start Date End Date semaglutide (Rybelsus) 7 mg tablet Take 1 tablet (7 mg total) by mouth quiller machine fixer before breakfast 30 tablet 1 09/11/2022 3 documented in this encounter Progress Notes * Marah Jonas PA - 09/11/2022 10:00 AM CST Subjective/Objective Patient ID: Mandy Oocnnor is a 77 y.o. female. Chief Complaint Follow-up HPI Patient presents to followup chronic concerns. A1c: 01/15/2022 --- 9.6 05/22/2022 --- 8.0 08/28/2022 - 8.1 Rybelsus 7mg since Summer. Is waiting for the 14mg to come from the Patient Assistance with [employer]. Metformin 500mg bid STOPPED HTN - lisinopril 2.5 and amlodipine 10mg HLD - crestor 10---had leg/knee pain so stopped it and pain is better. She is on Co-Q10. FLU - refused DXA Spine (+0.1) Total Hip (0 and -0.1) Mamm normal DM eye -- [facility] in [place]. Lab Results Component Value Date CHOL 155 08/28/2022 CHOL 209 (H) 01/15/2022 CHOL 221 (H) 05/18/2021 Lab Results Component Value Date HDL 35 (L) 08/28/2022 HDL 39 (L) 01/15/2022 HDL 39 (L) 05/18/2021 Lab Results Component Value Date LDL 93 08/28/2022 LDL 138 (H) 01/15/2022 LDL 155 (H) 05/18/2021 Lab Results Component Value Date TRIG 176 (H) 08/28/2022 TRIG 183 (H) 01/15/2022 TRIG 145 05/18/2021 No results found for: POCCHDLR No results found for: POCNONHDL No results found for: POCCHLPL Lab Results Component Value Date HGBA1C 8.1 (H) 08/28/2022 Chemistry Lab Results Component Value Date SODIUM 136 08/28/2022 POTASSIUM 4.1 08/28/2022 CHLORIDE 100 08/28/2022 CO2 22 08/28/2022 ANIONGAP 11 06/26/2021 BUNSER 16 08/28/2022 CREATININE 0.71 08/28/2022 GLUCOSE 209 (H) 08/28/2022 CALCIUM 9.5 08/28/2022 BILITOT 0.6 08/28/2022 PROTEIN 6.7 08/28/2022 ALBUMIN 4.4 08/28/2022 GFRNAA >90 06/26/2021 ALKPHOS 86 08/28/2022 AST 21 08/28/2022 ALT 23 08/28/2022 Review of Systems See HPI Vitals: 09/11/22 1003 BP: 130/82 BP Location: Left arm Patient Position: Sitting Pulse: 75 Temp: 36.6 ??C (97.8 ??F) TempSrc: Oral SpO2: 99% Weight: 114.3 kg (251 lb 14.4 oz) Physical Exam Vitals and nursing note reviewed. [...] Diagnoses and all orders for this visit: Type 2 diabetes mellitus without complication, without long-term current use of insulin ([facility]) (HCC) (E11.9) (Primary) Assessment & Plan: Stressed importance of continued A1c control to minimize the exterminator effects of diabetes. Bring accuchecks to office when instructed to do so. Check A1c about every 3-6 months. Take medication as prescribed. Get annual eye exam. Encouraged ASHA/Statin if able to tolerate. Encouraged weight controland encouraged diabetic diet and exercise. Continue to increase the Rybelsust from 7mg to -14mg . Recheck labs in about 3 months to see where the A1c is. Encouraged to get closer to goal of 7-8. If she has side effects she is to call. Orders: - Albumin Creatinine Ratio, Urine; Future - Comprehensive metabolic panel; Future - Hemoglobin A1c; Future - Lipid panel; Future Hyperlipidemia associated [...] in those numbers and hence the benefit. Hypertension associated with diabetes ([facility]) (E11.59, I15.2) Assessment & Plan: Bp is stable/in acceptable range for any co-morbidities. Encouraged to limit sodium intake and exercise for weight control. Continue with the amlodipine 10 and the 2.5 of lisinopril more so for renal protection. Fatigue, unspecified type (R53.83) Assessment & Plan: Probably multifactorial. Check labs and followup to re-evaluate Orders: - TSH; Future Morbid obesity with BMI of 40.0-44.9, adult (HCC) (E66.01, Z68.41) Assessment & Plan: Discussed the patient's BMI. The BMI is above average. BMI management plan is completed. BMI Follow-up includes: nutrition counseling, exercise counseling and education provided. Other orders - semaglutide (Rybelsus) 7 mg tablet; Take 1 tablet (7 mg total) by mouth quiller machine fixer before breakfast *This note is dictated using [employer] voice recognition software, variances in spelling and vocabulary are possible and unintentional.* Marah Jonas PA-C Cosigned by Joseph Reyes MD at 09/11/2022 5:06 PM PROGRAM DIR RAM DIR RAM DIR documented in this encounter Miscellaneous Notes * Assessment & Plan Note - Marah Jonas PA - 09/11/2022 3:22 PM PROGRAM DIR Associated Problem(s): Obesity, morbid, BMI 40.0-49.9 (HCC) (Resolved 02/15/2024) Discussed the patient's BMI. The BMI is above average. BMI management plan is completed. BMI Follow-up includes: nutrition counseling, exercise counseling and education provided. RAM DIR * Assessment & Plan Note - Marah Jonas PA - 09/11/2022 3:22 PM PROGRAM DIR Associated Problem(s): Fatigue (Resolved 06/14/2024) Probably multifactorial. Check labs and followup to re-evaluate RAM DIR * Assessment & Plan Note - Marah Joans PA - 09/11/2022 3:21 PM PROGRAM DIR Associated Problem(s): Hypertension associated with diabetes (HCC) Bp is stable/in acceptable range for any co-morbidities. Encouraged to limit sodium intake and exercise for weight control. Continue with the amlodipine 10 and the 2.5 of lisinopril more so for renal protection. RAM DIR * Assessment & Plan Note - Marah Jonas PA - 09/11/2022 3:20 PM PROGRAM DIR Associated Problem(s): Controlled type 2 diabetes mellitus without complication, without long-term current use of insulin (CMS/HCC) (HCC) Stressed importance of continued A1c control to minimize the exterminator effects of diabetes. Bring accuchecks to office when instructed to do so. Check A1c about every 3-6 months. Take medication as prescribed. Get annual eye exam. Encouraged ASHA/Statin if able to tolerate. Encouraged weight controland encouraged diabetic diet and exercise. Continue to increase the Rybelsust from 7mg to -14mg . Recheck labs in about 3 months to see where the A1c is. Encouraged to get closer to goal of 7-8. If she has side effects she is to call. RAM DIR * Assessment & Plan Note - Marah Jonas PA - 09/11/2022 3:19 PM PROGRAM DIR Associated Problem(s): Hyperlipidemia associated with type 2 [...] in those numbers and hence the benefit. RAM DIR documented in this encounter Plan of Treatment Not on file documented as of this encounter Procedures Procedure Name Priority Date/Time Associated Diagnosis Comments LIPID PANEL Routine 12/09/2022 11:32 AM PROGRAM DIR Type 2 diabetes mellitus without complication, without long-term current use of insulin (CMS/HCC) ([facility]) ALBUMIN CREATININE RATIO, URINE Routine 12/09/2022 11:28 AM PROGRAM DIR Type 2 diabetes mellitus without complication, without long-term current use of insulin (CMS/HCC) ([facility]) TSH Routine 12/09/2022 11:28 AM PROGRAM DIR Fatigue, unspecified type HEMOGLOBIN A1C Routine 12/09/2022 11:28 AM PROGRAM DIR Type 2 diabetes mellitus without complication, without long-term current use of insulin (CMS/HCC) ([facility]) COMPREHENSIVE METABOLIC PANEL Routine 12/09/2022 11:28 AM PROGRAM DIR Type 2 diabetes mellitus without complication, without long-term current use of insulin (CMS/HCC) ([facility]) documented in this encounter Results * (ABNORMAL) Lipid panel (12/09/2022 11:32 AM PROGRAM DIR) Cholesterol 223(H) 100 - 199 mg/dL [facility] - 01 Triglycerides 177(H) 0 - 149 mg/dL [facility] - 01 HDL Cholesterol 39(L) >39 mg/dL [facility] - 01 VLDL 32 5 - 40 mg/dL [facility] - 01 LDL, calculated 152(H) 0 - 99 mg/dL [facility] - 01 Blood 12/09/2022 11:3 2 AM PROGRAM DIR 12/09/2022 Narrative [facility] - 12/10/2022 7:36 AM PROGRAM DIR Performed at: ??01 - [facility] ??[id number] Claims Adjustor: Enrique Dunne PhD, Phone: ??[phone] Result [facility] Marah WELCH LAB BLOOD ORDERABLES Final Result Performing Organization Address [facility] Phone Number [facility] - * TSH (12/09/2022 11:28 AM PROGRAM DIR) Pathologist [facility] TSH 2.890 0.450 - 4.500 uIU/mL [facility] - Blood 12/09/2022 11:2 8 AM PROGRAM DIR 12/09/2022 Narrative [facility] - 12/10/2022 7:36 AM PROGRAM DIR Performed at: ??01 - [facility] ??[id number] Claims Adjustor: Enrique Dunne PhD, Phone: ??[phone] Result [facility] Marah WELCH LAB BLOOD ORDERABLES Final Result Performing Organization Address [facility] - * (ABNORMAL) Hemoglobin A1c (12/09/2022 11:28 AM PROGRAM DIR) Pathologist [facility] Hgb A1C 7.5(H) 4.8 - 5.6 % [facility] - Comment: ? Prediabetes: 5.7 - 6.4 ? Diabetes: >6.4 ? Glycemic control for adults with diabetes: <7.0 Blood 12/09/2022 11:2 8 AM PROGRAM DIR 12/09/2022 Narrative [facility] - 12/10/2022 7:36 AM PROGRAM DIR Performed at: ??01 - [facility] ??[id number] Claims Adjustor: Enrique Dunne PhD, Phone: ??[phone] Marah WELCH LAB BLOOD ORDERABLES Final Result Performing Organization Address [facility]/ZIP Co de Phone Number [facility] - * (ABNORMAL) Comprehensive metabolic panel (12/09/2022 11:28 AM PROGRAM DIR) Glucose 132(H) 70 - 99 mg/dL [facility] - 01 BUN 15 8 - 27 mg/dL [facility] - 01 Creatinine, Serum 0.63 0.57 - 1.00 mg/dL [facility] - 01 eGFR 92 >59 mL/min/1.7 3 [facility] - 01 BUN/creat ratio 24 12 - 28 [facility] - 01 Sodium 139 134 - 144 mmol/L [facility] - 01 Potassium, sr 4.6 3.5 - 5.2 mmol/L [facility] - 01 Chloride 100 96 - 106 mmol/L [facility] - 01 CO2 24 20 - 29 mmol/L [facility] - 01 Calcium 9.6 8.7 - 10.3 mg/dL [facility] - 01 Protein, sr 6.9 6.0 - 8.5 g/dL [facility] - 01 Albumin 4.6 3.7 - 4.7 g/dL [facility] - 01 Globulin, Total 2.3 1.5 - 4.5 g/dL [facility] - 01 A/G Ratio 2.0 1.2 - 2.2 [facility] - 01 Bilirubin, Total 0.5 0.0 - 1.2 mg/dL [facility] - 01 Alk phos 110 44 - 121 IU/L [facility] - 01 AST 18 0 - 40 IU/L [facility] - 01 ALT 21 0 - 32 IU/L [facility] - 01 Blood 12/09/2022 11:2 8 AM PROGRAM DIR 12/09/2022 Narrative [facility] - 12/10/2022 7:36 AM PROGRAM DIR Performed at: ??01 - [facility] [address] ??[id number] Claims Adjustor: Enrique Dunne PhD, Phone: ??[phone] us Marah WELCH LAB BLOOD ORDERABLES Final Result [facility] - * Albumin Creatinine Ratio, Urine (12/09/2022 11:28 AM PROGRAM DIR) Creatinine ur 20.9 Not Estab. mg/dL [facility] - 01 Microalbumin, ur <3.0 Not Estab. ug/mL [facility] - 01 Comment:Verified by repeat analysis Microalbumin/cre at ratio <14 0 - 29 mg/g creat [facility] - 01 Comment: ? Normal: ?0 - ??29 ? Moderately increased: 30 - 300 ? Severely increased: ? >300 Urine 12/09/2022 11:2 8 AM PROGRAM DIR 12/09/2022 Narrative [facility] - 12/10/2022 4:11 PM PROGRAM DIR Performed at: ??01 - [facility] [address] ??[id number] Claims Adjustor: Enrique Dunne PhD, Phone: ??[phone] Marah WELCH LAB URINE ORDERABLES Final Result Performing Organization Address City/State/[facility] Co de Phone Number [facility] - 01 documented in this encounter Visit Diagnoses Diagnosis Type 2 diabetes mellitus without complication, without long-term current use of insulin (CMS/HCC) (HCC)- Primary Hyperlipidemia associated with type 2 diabetes mellitus (HCC) Hypertension associated with diabetes (HCC) Unspecified essential hypertension Fatigue, unspecified type Morbid obesity with BMI of 40.0-44.9, adult (HCC) documented in this encounter Discontinued Medications Medication Sig Discontinue Reason Start Date End Da te semaglutide (Rybelsus) 3 mg tablet Take 1 tablet (3 mg total) by mouth quiller machine fixer before breakfast 02/05/2022 09/11/2022 semaglutide (Rybelsus) 7 mg tablet Take 1 tablet (7 mg total) by mouth quiller machine fixer before breakfast 02/05/2022 09/11/2022 documented as of this encounter Care Teams Trust And Estates Paralegal Relationship Specialty Start Date End Date Marah Jonas PA [address] [facility] [address] [place] [address] PCP - General Internal Medicine 04/05/19 documented as of this encounter
--- OUTSIDE RECORDS SUMMARY | 2024-11-23 05:14 | XMS_ITS | Encounter Summary ---
Author Organization [facility] Address [address] [place] [address] Care Team Providers Care Principal Bioinformatics Specialist Name Role Phone Marah Jonas Primary Care Provider +1- [phone] Encounter Details Date Type Department Care Team (Late st Contact Info) Description 05/15/2023 Orders Only [facility] Family Medicine [address] [place] [address] Provider, MD Joseluis [address] [place], [place] [id number] Social History Tobacco Use Types Packs/Day Years [...] on file 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 Gender Identity Not on file Sexual Orientation Not on file Occupation Industry Job Start Date Job End Date Retired Not on file Not on file Not on file documented as of this encounter Plan of Treatment Not on file documented as of this encounter Procedures Procedure Name Priority Date/Time Associated Diagnosis Comments DIABETES EYE EXAM Routine 05/15/2023 2:07 PM CDT documented in this encounter Results * DIABETES EYE EXAM (05/15/2023 2:07 PM CDT) us Historical Provider HEALTH MAINTENANCE Edited Result - Final documented in this encounter Visit Diagnoses Not on filedocumented in this encounter Care Teams Principal Bioinformatics Specialist Relationship Specialty Start Date End Date Marah Jonas PA [address] [place] [address] PCP - General Internal Medicine 04/05/19 documented as of this encounter
--- OUTSIDE RECORDS SUMMARY | 2024-11-23 05:14 | XMS_ITS | Encounter Summary ---
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 Gender Identity Not on file Sexual Orientation Not on file Occupation Industry Job Start Date Job End Date Retired Not on file Not on file Not on file documented as of this encounter Plan of Treatment Not on file documented as of this encounter Procedures Procedure Name Priority Date/Time Associated Diagnosis Comments XR CHEST PA LATERAL 2 VIEWS Schedule ENEDINA, Read ENEDINA (Appt Today, Awaiting Results) 07/14/2023 2:50 PM CDT Cough, unspecified type documented in this encounter Results * XR Chest PA Lateral 2 Views (07/14/2023 2:50 PM CDT) Anatomical Region Laterality Modality Body, Chest N/A Digital Radiogra phy 07/14/2023 4:32 PM CDT Narrative 07/14/2023 4:34 PM CDT EXAM DESCRIPTION: XR CHEST PA LATERAL 2 VIEWS REASON FOR STUDY: Cough for 1 week. TECHNIQUE: PA and lateral ??radiographic view(s) of the chest. COMPARISON: None FINDINGS: LUNGS: ??No pleural effusion. ??No consolidation or pneumothorax. ?? HEART/MEDIASTINUM: ??Cardiac silhouette normal in size. Mediastinal and hilar contours appear normal. LINES/TUBES: ??None. BONES: ??No acute osseous abnormality. IMPRESSION: No acute radiographic abnormality. THIS IS AN ELECTRONICALLY VERIFIED FINAL REPORT 07/14/2023 4:34 PM - Electronically signed by ??Luis ESPITIA D: ??07/14/2023 4:34 PM T: Report ID: [id number] Reading Location: ??[id number] Procedure Note Luis Mcneal MD - 07/14/2023 EXAM DESCRIPTION: XR CHEST PA LATERAL 2 VIEWS REASON FOR STUDY: Cough for 1 week. TECHNIQUE: PA and lateral radiographic view(s) of the chest. COMPARISON: None FINDINGS: LUNGS: No pleural effusion. No consolidation or pneumothorax. HEART/MEDIASTINUM: Cardiac silhouette normal in size. Mediastinal andhilar contours appear normal. LINES/TUBES: None. BONES: No acute osseous abnormality. IMPRESSION: No acute radiographic abnormality. THIS IS AN ELECTRONICALLY VERIFIED FINAL REPORT 07/14/2023 4:34 PM - Electronically signed by Luis Mcneal M.D. LB T: Report ID: [id number] Reading Location: [id number] Hina Greenfield ADULT NEUROLOGIST IMG XR PROCEDURES Final Result documented in this encounter Visit Diagnoses Diagnosis Cough, unspecified type documented in this encounter Additional Health Concerns Infection Onset Date Last Indicated Resolved Time COVID: Suspected 07/14/2023 07/14/2023 07/14/2023 10:14 PM CDT documented as of this encounter Care Teams Deck Builder Relationship Specialty Start Date End Date Marah Jonas PA [address] [address] PCP - General Internal Medicine 04/05/19 documented as of this encounter
--- OUTSIDE RECORDS SUMMARY | 2024-11-23 05:14 | XMS_ITS | Encounter Summary ---
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 documented in this encounter Plan of Treatment Not on file documented as of this encounter Visit Diagnoses Not on filedocumented in this encounter Care Teams Emergency Detail Driver Relationship Specialty Start Date End Date Marah Jonas PA [address] [place] [address] PCP - General Internal Medicine 04/05/19 documented as of this encounter
--- OUTSIDE RECORDS SUMMARY | 2024-11-23 05:14 | XMS_ITS | Encounter Summary ---
Author Organization [facility] Address [address] [place] [address] Care Team Providers Care Vocational Technical Education Director Name Role Phone Marah Jonas Primary Care Provider +1- [phone] Reason for Visit * Reason Comments Cough Pt c/o cough for abo ut 1 week that isn't getting any better. 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 Gender Identity Not on file Sexual Orientation Not on file Occupation Industry Job Start Date Job End Date Retired Not on file Not on file Not on file documented as of this encounter Last Filed Vital Signs Vital Sign Reading Time Taken Comments Blood Pressure 152/78 07/14/2023 2:31 PM CDT Pulse 82 07/14/2023 2:31 PM CDT Temperature 36.8 ??C (98.3 ??F) 07/14/2023 2:31 PM CD T Respiratory Rate 24 07/14/2023 2:31 PM CDT Oxygen Saturation 97% 07/14/2023 2:31 PM CDT Inhaled Oxygen Concentration - - Weight 113.4 kg (250 lb) 07/14/2023 2:31 PM CDT Height 165.1 cm (5' 5 ) 07/14/2023 2:31 PM CDT Body Mass Index 41.6 07/14/2023 2:31 PM CDT documented in this encounter Patient Instructions * Patient Instructions* Hina Greenfield, PREMISES TECHNICIAN - 07/14/2023 2:45 PM CDT Tessalon as prescribed for cough. Avoid irritants such as cigarette smoke, pollen, dust, etc as this will aggravate cough. Suck on cough drops or hard candies to soothe a dry or sore throat. Cough drops won't stop your cough, but they may make your throat feel better. Over the counter loratadine (Claritin) or cetirizine (Zyrtec) to reduce secretions. Mucinex to thin secretions Breathe moist air from a humidifier, a hot shower, or a sink filled with hot water. The heat and moisture can help keep mucus in your airways moist so you can cough it out easily. Use nonprescription medicine, such as acetaminophen, ibuprofen, or aspirin, to relieve fever and body aches. Don't give aspirin to anyone younger than age 20. Rest more than usual. Drink plenty of fluids so that you do not become dehydrated and to keep mucous thin. Use an zgis-vhy-ltgxbab cough medicine such as Delsym or Robitussin. (Cough medicines may not be safe for young children or for people who have certain health problems.) Cough suppressants may help you to stop coughing. Expectorants, such as Mucinex, can help you bring up mucus when you cough. Follow up with primary care physician in 1 week, or sooner if symptoms worsen. GO TO ER WITH ANY WORSENING OF SYMPTOMS INCLUDING, BUT NOT LIMITED TO: SUDDEN HIGH FEVER, DIFFICULTY BREATHING OR CATCHING YOUR BREATH, OR SHORTNESS OF BREATH. * Attachments The following attachments cannot be sent through Care Everywhere. * Acute Cough (City Library Director) (Angolan) documented in this encounter Ordered Prescriptions Prescription Sig Dispense Quantity Refills Last Filled Start Date End Date benzonatate (TESSALON) 200 mg capsuleIndications :Lower respiratory infection (e.g., bronchitis, pneumonia, pneumonitis, pulmonitis) Take 1 capsule (200 mg total) by mouth 3 (three) times a day as needed for cough 30 capsule 07/14/2023 4 azithromycin (ZITHROMAX) 250 mg tabletIndications: Lower respiratory infection (e.g., bronchitis, pneumonia, pneumonitis, pulmonitis) Take 2 tablets the first day, then 1 tablet daily for 4 days. 6 tablet 07/14/2023 3 benzonatate (TESSALON) 200 mg capsuleIndications :Lower respiratory infection (e.g., bronchitis, pneumonia, pneumonitis, pulmonitis) Take 1 capsule (200 mg total) by mouth 3 (three) times a day as needed for cough 30 capsule 07/14/2023 3 azithromycin (ZITHROMAX) 250 mg tabletIndications: Lower respiratory infection (e.g., bronchitis, pneumonia, pneumonitis, pulmonitis) Take 2 tablets the first day, then 1 tablet daily for 4 days. 6 tablet 07/14/2023 3 documented in this encounter Progress Notes * Hina Greenfield NP - 07/14/2023 2:45 PM CDT Images from the original note were not included. Patient ID: Mandy Oconnor is a 78 y.o. female followed by Marah Jonas PA Chief Complaint Patient presents with Cough Pt c/o cough for about 1 week that isn't getting any better. No other sx Patient presents to the clinic with reports of cough for 1 week. Patient denies fevers, chest pain,difficulty breathing, congestion, ear pain, rash, and vomiting. She has taken mucinex for her symptoms. Review of Systems Constitutional: Negative for chills, fatigue and fever. HENT: Negative for congestion, ear pain, postnasal drip, rhinorrhea and sore throat. Respiratory: Positive for cough. Negative for chest tightness, shortness of breath and wheezing. Cardiovascular: Negative for chest pain. Gastrointestinal: Negative for diarrhea, nausea and vomiting. Musculoskeletal: Negative for myalgias. Neurological: Negative for headaches. Vitals: 07/14/23 1431 BP: 152/78 Pulse: 82 Resp: 24 Temp: 36.8 ??C (98.3 ??F) SpO2: 97% Weight: 113.4 kg (250 lb) Height: 165.1 cm (5' 5 ) Physical Exam Vitals reviewed. Constitutional: Appearance: She is well-developed. HENT: Right Ear: Tympanic membrane, ear canal and external ear normal. Tympanic membrane is not injected,erythematous or bulging. Left Ear: Tympanic membrane, ear canal and external ear normal. Tympanic membrane is not injected, erythematous or bulging. Nose: Congestion present. No rhinorrhea. Right Sinus: No maxillary sinus tenderness or frontal sinus tenderness. Left Sinus: No maxillary sinus tenderness or frontal sinus tenderness. Mouth/Throat: Lips: [place]. Mouth: Mucous membranes are moist. Pharynx: Uvula midline. No pharyngeal swelling, oropharyngeal exudate or posterior oropharyngeal erythema. Cardiovascular: Rate and Rhythm: Normal rate and regular rhythm. Pulmonary: Effort: Pulmonary effort is normal. No respiratory distress. Breath sounds: Decreased breath sounds present. No wheezing or rhonchi. Comments: Coughing observed Lymphadenopathy: Cervical: No cervical adenopathy. Skin: General: Skin is warm and dry. Neurological: Mental Status: She is alert and oriented to person, place, and time. Diagnoses and all orders for this visit: Lower respiratory infection (e.g., bronchitis, pneumonia, pneumonitis, pulmonitis) (Primary) - Influenza A/B, RSV, and COVID-19 PCR Nasopharyngeal; Future - XR Chest PA Lateral 2 Views; Future - azithromycin (ZITHROMAX) 250 mg tablet; Take 2 tablets the first day, then 1 tablet daily for 4 days. - benzonatate (TESSALON) 200 mg capsule; Take 1 capsule (200 mg total) by mouth 3 (three) times a day as needed for cough XRAY IMPRESSION: No acute radiographic abnormality. Orders Placed This Encounter Procedures Influenza A/B, RSV, and COVID-19 PCR Nasopharyngeal Standing Status: Future Standing Expiration Date: 07/14/2024 Order Specific Question: Is the Patient experiencing symptoms consistent with COVID? Answer: Yes Order Specific Question: Date of Symptom Onset Answer: 07/07/2023 Order Specific Question: Reason for testing? Answer: Symptomatic XR Chest PA Lateral 2 Views Standing Status: Future Number of Occurrences: 1 Standing Expiration Date: 07/14/2024 Order Specific Question: Where should this order be performed? Answer: [facility] [[id number]] Order Specific Question: Performing department: Answer: [facility] [[id number]] Assessment/Plan # acute lower lung infection --CXR pending --likely bacterial given symptoms, duration of illness, and assessment. --exam findings warrant antibiotics. Started azithromycin --recommended to continue cold/sinus medications and sinus rinse. --ED presentation with one or more of the following symptoms: fever uncontrolled with antipyretics,shortness of breath, chest discomfort, uncontrolled n/v/d --f/u with PCP in 5-7 days if symptoms do not improve/worsen Disposition Treatment plan including expectations, follow up, and return precautions discussed with patient/parent, verbalizes understanding. Medication dosage, use, and potential adverse reactions discussed with patient/parent. Advised to follow up with PCP if symptoms do not resolve as expected or sooner if condition worsens. Discussed Signs/symptoms warranting ER evaluation including worsening fever, increased shortness ofbreath, chest pain, severe N/V/D, or any other worrisome symptoms Patient and/or guardian was given an opportunity to ask questions, questions answered. Patient Education Tessalon as prescribed for cough. Avoid irritants such as cigarette smoke, pollen, dust, etc as this will aggravate cough. Suck on cough drops or hard candies to soothe a dry or sore throat. Cough drops won't stop your cough, but they may make your throat feel better. Over the counter loratadine (Claritin) or cetirizine (Zyrtec) to reduce secretions. Mucinex to thin secretions Breathe moist air from a humidifier, a hot shower, or a sink filled with hot water. The heat and moisture can help keep mucus in your airways moist so you can cough it out easily. Use nonprescription medicine, such as acetaminophen, ibuprofen, or aspirin, to relieve fever and body aches. Don't give aspirin to anyone younger than age 20. Rest more than usual. Drink plenty of fluids so that you do not become dehydrated and to keep mucous thin. Use an etjp-xqg-lstkynt cough medicine such as Delsym or Robitussin. (Cough medicines may not be safe for young children or for people who have certain health problems.) Cough suppressants may help you to stop coughing. Expectorants, such as Mucinex, can help you bring up mucus when you cough. Follow up with primary care physician in 1 week, or sooner if symptoms worsen. GO TO ER WITH ANY WORSENING OF SYMPTOMS INCLUDING, BUT NOT LIMITED TO: SUDDEN HIGH FEVER, DIFFICULTY BREATHING OR CATCHING YOUR BREATH, OR SHORTNESS OF BREATH. Hina Greenfield NP documented in this encounter Plan of Treatment Not on file documented as of this encounter Results * XR Chest PA [...] 4:34 PM - Electronically signed by ??Luis Mcneal M.D. LB D: ??07/14/2023 4:34 PM T: Report ID: [id number] Reading Location: ??[id number] Procedure Note Luis Mcneal MD - 07/14/2023 [...] Luis Mcneal M.D. LB T: Report ID: [id number] Reading Location: [place] [address] Hina Greenfield PREMISES TECHNICIAN IM XR PROCEDURES Final Result * Influenza A/B, RSV, and COVID-19 PCR Nasopharyngeal (07/14/2023 2:36 PM CDT) Pathologist [facility] [place] COVID-19 RNA Negative Negative [facility] Influenza A RNA Negative Negative [facility] Influenza B RNA Negative Negative [facility] RSV RNA Negative Negative [facility] Comment: Interpretive data: This test is performed using the [employer] Xpert Xpress CoV-2/Flu/RSV plus assay. This is [...] PM CDT 07/14/2023 9:20 PM CDT Narrative SHRUTI SINGH - 07/14/2023 10:13 PM CDT Is the Patient experiencing symptoms consistent with COVID?->Yes Date of Symptom Onset->07/07/23 Reason for testing?->Symptomatic Hina Greenfield PREMISES TECHNICIAN LAB MICROBIOLOGY - GENERAL ORD ERABLES Final Result SHRUTI [id number] [place] [address] documented in this encounter Visit Diagnoses Diagnosis Lower respiratory infection (e.g., bronchitis, pneumonia, pneumonitis, pulmonitis)- Primary Cough, unspecified type Lower respiratory infection (e.g., bronchitis, pneumonia, pneumonitis, pulmonitis) documented in this encounter Discontinued Medications Medication Sig Discontinue Reason Start Date End Da te azithromycin (ZITHROMAX) 250 mg tabletIndications:Lower respiratory infection (e.g., bronchitis, pneumonia, pneumonitis, pulmonitis) Take 2 tablets the first day, then 1 tablet daily for 4 days. Reorder 07/14/2023 07/14/2023 benzonatate (TESSALON) 200 mg capsuleIndications:Lower respiratory infection (e.g., bronchitis, pneumonia, pneumonitis, pulmonitis) Take 1 capsule (200 mg total) by mouth 3 (three) times a day as needed for cough Reorder 07/14/2023 07/14/2023 documented as of this encounter Additional Health Concerns Infection Onset Date Last Indicated Resolved Time COVID: Suspected 07/14/2023 07/14/2023 07/14/2023 10:14 PM CDT documented as of this encounter Care Teams Vocational Technical Education Director Relationship Specialty Start Date End Date Marah Jonas PA [address] [address] PCP - General Internal Medicine 04/05/19 documented as of this encounter
--- OUTSIDE RECORDS SUMMARY | 2024-11-23 05:14 | XMS_ITS | Encounter Summary ---
Author Organization [facility] Address [address] [place] [address] Care Team Providers Care Turf Manager Name Role Phone Marah Jonas Primary Care Provider +1- [phone] Reason for Visit * Reason Onset Date Comments Medical Question/Miscellaneous 12/31/2022 Call Back 12/31/2022 Encounter Details Date Type Department Care Team (Late st Contact Info) Description 12/31/[address] 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 Caller???s Call back #: n/a Does message need to be routed? No E COMMERCE MARKETING ANALYST * Telephone Encounter - Myla Nava MA - 01/01/2023 10:15 AM CST Please transfer patient to [place]. E COMMERCE MARKETING ANALYST * Telephone Encounter - Myla Nava MA - 12/31/2022 3:25 PM CST LM on patient's VM. E COMMERCE MARKETING ANALYST * Telephone Encounter - Leah Kevin MA - 12/31/2022 10:09 AM CST Medical Question/Miscellaneous Caller???s Concern: patient has some questions about the [place], would like to speak to Myla, she is on the last week of medication. She has tried to call them 3 different times on the phone for an hour each time. Please reach out to patient. Would like to speak to Myla Caller???s Call back #: [phone] Does message need to be routed?Yes-Action Needed E COMMERCE MARKETING ANALYST documented in this encounter Plan of Treatment Not on file documented as of this encounter Visit Diagnoses Not on filedocumented in this encounter Care Teams Turf Manager Relationship Specialty Start Date End Date Marah Jonas PA [address] [facility] [address] [place] [address] PCP - General Internal Medicine 04/05/19 documented as of this encounter
== END 2024-11-16 09:04 | disposition home or self-care (01) ==
PROVIDERS: PCP Physician Assistant; Visit Provider Internal Medicine Gastroenterology
PROC: 0DJD8ZZ Inspection of Lower Intestinal Tract, Via Natural or Artificial Opening Endoscopic (ICD-10-PCS; CPT 45378; principal; 2024-11-16 08:00)
DX: Z12.11 Encounter for screening for malignant neoplasm of colon (principal); D12.2 Benign neoplasm of ascending colon; D12.0 Benign neoplasm of cecum; K64.8 Other hemorrhoids; K57.30 Diverticulosis of large intestine without perforation or abscess without bleeding; E78.5 Hyperlipidemia, unspecified; I10 Essential (primary) hypertension; E11.9 Type 2 diabetes mellitus without complications; E66.9 Obesity, unspecified; Z68.38 Body mass index [BMI] 38.0-38.9, adult; Z98.890 Other specified postprocedural states; Z90.49 Acquired absence of other specified parts of digestive tract; Z85.038 Personal history of other malignant neoplasm of large intestine
CPT/HCPCS: 45385; 82948; 88305; J2003; J2704; J7120